=== PATIENT | male | born 1955 | race Caucasian/White ===

== ENCOUNTER → 2016-11-27 | Outpatient (CLI) | payer BC ==
[~2016-11-27] MED LIST: AMLO-114 PO; ASPEC325 PO; ATOR-24 PO; BUPR-83 PO; HYDR25TA5 PO; LABE1TAB28 PO; MAGNESIUM PO; METF-382 PO; MULT-506 PO; NVLNI SC; NVLRPUC SC; PRLSR20 PO
[2016-11-27 12:06] LABS: ALT/SGPT 36 U/L (12-78); AST/SGOT 18 U/L (15-37); BLOOD UREA NITROGEN 18 mg/dl (7-18); BUN/CREATININE RATIO 14.7 (10-20); CALCIUM 8.7 mg/dl (8.5-10.1); CARBON DIOXIDE 29 mmol/L (21-32); CHLORIDE 101 mmol/L (98-107); GLUCOSE 309 mg/dl (70-99); POTASSIUM 4.4 mmol/L (3.5-5.1); SODIUM 138 mmol/L (136-145)
[2016-11-27 12:07] LABS: ALB/GLOB RATIO 1.3 (0.9-2); CHOLESTEROL 125 mg/dl (0-200); TRIGLYCERIDES 85 mg/dl (0-150); VERY LOW DENSITY LIPOPROT CALC 17 mg/dl
[2016-11-27 12:16] LABS: ALKALINE PHOSPHATASE 73 U/L (45-117); BETA-HYDROXYBUTYRATE 1.45 mg/dL (0.2-2.81); CHOLESTEROL/HDL RATIO 2.6; HDL CHOLESTEROL 49 mg/dl; LDL CHOLESTEROL CALCULATED 59 mg/dl; THYROID STIMULATING HORMONE 0.359 uIu/ml (0.300-4.500)
[2016-11-27 12:35] LABS: RATIO 38.8 mcg/mg (0-30.0)
[2016-11-27 13:00] LABS: ESTIMATED AVERAGE GLUCOSE 309 mg/dl; HA1C FLAG Normal (Normal)
== END | disposition home or self-care (01) ==
LOC: C.LABBC 08:49
PROVIDERS: ATTEND Nurse Practitioner
DX: E11.9 Type 2 diabetes mellitus without complications (principal); E05.90 Thyrotoxicosis, unspecified without thyrotoxic crisis or storm

== ENCOUNTER → 2016-12-22 | Outpatient (CLI) | payer BC ==
--- NOTE | 2016-12-22 10:35 | DIAGNOSTIC IMAGING REPORT ---
THYROID ULTRASOUND CLINICAL HISTORY: Thyroid nodule. COMPARISON STUDY: Thyroid ultrasound August 07, 2009 and January 23, 2015. TECHNIQUE: Sonography of the thyroid gland was performed. FINDINGS: The right thyroid lobe measures 6 x 2.5 x 1.9 cm and the left measures 5.7 x 3.1 x 3.6 cm. Multiple similar-appearing thyroid nodules are again noted. The largest right lobe nodule is within the midpole, measuring 2.2 x 1.6 x 1.6 cm. This is similar to exam of January 23, 2015. The largest left lobe nodule is within the midpole, measuring 3.8 x 2.2 x 1.6 cm. This is similar to prior exam. A left isthmus nodule measuring 4.3 x 2.6 x 2.4 cm is also similar to prior exam when allowing for measurement variability. IMPRESSION: No significant change in multiple thyroid nodules since exam of January 23, 2015. Electronically signed by: Fran Matthews M.D. 12/22/2016 10:33 AM Dictated Date/Time: 12/22/2016 10:30 AM
== END | disposition home or self-care (01) ==
LOC: C.ULTR 10:02
PROVIDERS: ATTEND Internal Medicine
DX: E04.1 Nontoxic single thyroid nodule (principal)

== ENCOUNTER → 2017-01-31 | Outpatient (CLI) | payer BC ==
[2017-01-31 09:49] LABS: CALCIUM 9.2 mg/dl (8.5-10.1)
--- NOTE | 2017-02-07 10:15 | CODING QUERY MEDICAL NECESSITY ---
SUPPORTING DIAGNOSIS NEEDED A supporting diagnosis is required for the test/procedure performed on this patient in order for us to be reimbursed by the patient's insurance. Please provide a supporting diagnosis for the following test/procedure listed below next to the test name along with your signature. *If there is no additional diagnosis for this patient that would support the following test/procedure please document that below next to the test/procedure. Test(s)/Procedure(s) that require a supporting diagnosis: * VITAMIN D 25 HYDROXY DIAGNOSIS: * VIT B-12 LEVEL DIAGNOSIS: * DOS: 01/31/17 Provider Signature: Date: Thank you Anna Palacio Health Information Management Once completed, please kindly fax back to [phone] For questions please call [phone]
== END | disposition home or self-care (01) ==
LOC: C.LABBFT 07:37
PROVIDERS: ATTEND Internal Medicine Endocrinology, Diabetes & Metabolism
DX: E04.1 Nontoxic single thyroid nodule (principal); I10 Essential (primary) hypertension; Z83.41 Family history of multiple endocrine neoplasia [MEN] syndrome; R25.2 Cramp and spasm; M51.36 Other intervertebral disc degeneration, lumbar region; D64.9 Anemia, unspecified; E11.65 Type 2 diabetes mellitus with hyperglycemia

== ENCOUNTER → 2017-07-07 | Outpatient (CLI) | payer BC ==
[2017-07-07 12:57] LABS: ESTIMATED AVERAGE GLUCOSE 200 mg/dl; HA1C FLAG Normal (Normal)
== END | disposition home or self-care (01) ==
LOC: C.LABBFT 07:37
PROVIDERS: ATTEND Internal Medicine Endocrinology, Diabetes & Metabolism
DX: Z12.5 Encounter for screening for malignant neoplasm of prostate (principal); E11.65 Type 2 diabetes mellitus with hyperglycemia; E55.9 Vitamin D deficiency, unspecified

== ENCOUNTER → 2017-10-21 | Outpatient (CLI) | payer BC ==
--- NOTE | 2017-10-21 10:37 | DIAGNOSTIC IMAGING REPORT ---
LUMBAR SPINE WITHOUT CT DOSE: 825.46 mGy.cm HISTORY: Pain. LOWER BACK PAIN TECHNIQUE: Multiaxial CT images of the lumbar spine were performed and reformatted in the sagittal and coronal plane without the use of contrast. A dose lowering technique was utilized adhering to the principles of ALARA. COMPARISON: None. FINDINGS: Vertebral body stature is normal throughout. Grade 1 anterolisthesis L4 on L5 estimated no more than 4 mm of subluxation. Degenerative change posterior horns. No evidence for spondylolysis. Mild degenerative vertebral this changes throughout. Based on the unenhanced transaxial images the L1-L2 level is unremarkable. Mild broad-based disc bulge L2-L3. Mild multifactorial narrowing of the spinal canal at L3-L4. Moderate narrowing of the neuroforamina bilaterally at this level. Moderate to significant multifactorial narrowing of the spinal canal at L4-L5. Significant narrowing of the neuroforamina bilaterally. L5-S1 level is unremarkable. There are degenerative changes of the posterior elements throughout the entire lumbar region. IMPRESSION: 1. Considerable degenerative change of the posterior elements throughout the entire lumbar region. 2. Grade 1 anterolisthesis of L4 and L5 secondary to degenerative changes of posterior elements. 3. Moderate multifactorial narrowing of the spinal canal at L4-L5 with significant narrowing of the neuroforamina bilaterally. 4. Mild multifactorial narrowing of the spinal canal at L3-L4 5. Mild broad-based disc bulge L2-L3 The above report was generated using voice recognition software. It may contain grammatical, syntax or spelling errors. Electronically signed by: Davin Garcia M.D. 10/21/2017 10:36 AM Dictated Date/Time: 10/21/2017 10:31 AM
== END | disposition home or self-care (01) ==
LOC: C.CTS 09:57
PROVIDERS: ATTEND Orthopaedic Surgery Orthopaedic Surgery of the Spine
DX: M48.061 Spinal stenosis, lumbar region without neurogenic claudication (principal); M43.16 Spondylolisthesis, lumbar region; M51.36 Other intervertebral disc degeneration, lumbar region

== ENCOUNTER 2017-11-24 08:27 | Inpatient (IN) | payer BC ==
--- NOTE | 2017-11-04 10:50 | PAT Medication Instructions ---
Service Date Nov 04, 2017. Current Home Medication List Amlodipine (Norvasc), 10 MG PO QAM Aspirin (Aspirin), 325 MG PO QAM Atorvastatin (Lipitor), 40 MG PO QAM Bupropion (Wellbutrin Sr), 100 MG PO BID Hydrochlorothiazide (Hydrochlorothiazide), 1 TAB PO QAM Insulin Degludec (Tresiba Flextouch), 70 UNITS INJ QAM Irbesartan (Irbesartan), 1 TAB PO QAM Labetalol (Normodyne), 200 MG PO Q12H Metformin Ext Rel (Glucophage Ext Rel), 2 TAB PO BID Multivitamin (Multivitamin), 1 TAB PO QAM Naproxen (Naprosyn), 500 MG PO Q12H PRN for RN Omeprazole (Prilosec), 20 MG PO QAM [Magnesium], 250 MG PO QAM [Novolog], 1 DOSE INJ SLIDING SCALE [Potassium], 99 MG PO QAM Medication Instructions For Your Scheduled Surgery - Hold the following medications per surgeon's instructions: Naproxen (Naprosyn), 500 MG PO Q12H PRN Aspirin (Aspirin), 325 MG PO QAM - Hold the following medications 48 hours prior to surgery: Metformin Ext Rel (Glucophage Ext Rel), 2 TAB PO BID - Hold the following medications the morning of surgery: Multivitamin (Multivitamin), 1 TAB PO QAM [Magnesium], 250 MG PO QAM [Potassium], 99 MG PO QAM Hydrochlorothiazide (Hydrochlorothiazide), 1 TAB PO QAM Irbesartan (Irbesartan), 1 TAB PO QAM [Novolog], 1 DOSE INJ SLIDING SCALE - Take the following medications the morning of surgery with a sip of water OTHERWISE NOTHING TO EAT OR DRINK AFTER MIDNIGHT: Amlodipine (Norvasc), 10 MG PO QAM Atorvastatin (Lipitor), 40 MG PO QAM Labetalol (Normodyne), 200 MG PO Q12H Bupropion (Wellbutrin Sr), 100 MG PO BID Omeprazole (Prilosec), 20 MG PO QAM - For Insulin Dependent Diabetic patients: Test blood sugar A.M. of surgery. - If BLOOD SUGAR IS GREATER THAN 150, take HALF of your regular dose of: Insulin Degludec (Tresiba Flextouch) - If BLOOD SUGAR IS LESS THAN 150, do not take any: Insulin Degludec ( Tresiba Flextouch) - Take the following medications as scheduled the night before surgery: Labetalol (Normodyne), 200 MG PO Q12H Bupropion (Wellbutrin Sr), 100 MG PO BID [Novolog], 1 DOSE INJ SLIDING SCALE If you have any questions please call us at [phone] or [phone] or [phone]
[2017-11-04 11:29] LABS: BASO % 0.1 %; BASO ABS # 0.01 K/uL (0-0.2); EOS % 0.9 %; EOS ABS # 0.06 K/uL (0-0.5); HEMATOCRIT 41.4 % (42-52); HEMOGLOBIN 13.8 g/dL (14.0-18.0); IG# 0.01 K/uL (0.00-0.02); LYMPH % 22.3 %; LYMPH ABS # 1.49 K/uL (1.2-3.4); MEAN CELL VOLUME 89.8 fL (80-100); MEAN CORPUSCULAR HEMOGLOBIN 29.9 pg (25-34); MEAN CORPUSCULAR HGB CONC 33.3 g/dl (32-36); MEAN PLATELET VOLUME 11.3 fL (7.4-10.4); MONO % 7.2 %; MONO ABS # 0.48 K/uL (0.11-0.59); NEUT % 69.4 %; NEUT ABS # 4.63 K/uL (1.4-6.5); PLATELET COUNT 195 K/uL (130-400); RED CELL DISTRIBUTION WIDTH CV 12.9 % (11.5-14.5); RED CELL DISTRIBUTION WIDTH SD 41.7 fL (36.4-46.3); WHITE BLOOD COUNT 6.68 K/uL (4.8-10.8)
[2017-11-04 11:34] LABS: PTT PATIENT 24.3 SECONDS (21.0-31.0)
[2017-11-04 11:45] LABS: CALCIUM 9.4 mg/dl (8.5-10.1); CREATININE 1.22 mg/dl (0.60-1.40); POTASSIUM 4.7 mmol/L (3.5-5.1)
--- NOTE | 2017-11-04 11:50 | DIAGNOSTIC IMAGING REPORT ---
CHEST 2 VIEWS ROUTINE HISTORY: Preop. COMPARISON: None. FINDINGS: The lungs are clear. Cardiac silhouette is normal in size. No pleural effusions. No pneumothorax. IMPRESSION: No acute process. Electronically signed by: Kristofer Craft M.D. 11/04/2017 11:49 AM Dictated Date/Time: 11/04/2017 11:47 AM
--- NOTE | 2017-11-23 12:23 | HISTORY & PHYSICAL EXAMINATION ---
DATE OF ADMISSION: 11/24/2017 Laminectomy and fusion at L3-L4 and L4-L5 lumbar spine. CHIEF COMPLAINT: Back pain, lower extremity difficulty, nerve root pain, weakness and severe neurogenic claudication. HISTORY OF PRESENT ILLNESS: Avi is a pleasant young gentleman. He has been diagnosed with a fairly severe stenosis at L3-L4 and L4-L5. He is being set up for an elective surgery. He is moderately compromised. He has failed all sorts of conservative measures to try to help him with difficulty. We did not push him into a surgical intervention. PAST MEDICAL HISTORY: Positive hypertension, anxiety, diabetes on insulin, acid reflux. No kidney, liver or prostate issues. No carcinoma. No difficulty with anesthesia. No cardiac history. PAST SURGICAL HISTORY: Rotator cuff x2, wrist surgery, carpal tunnel, trigger finger release. ALLERGIES: MORPHINE AND LISINOPRIL. MEDICATIONS: Listed on this inquiry. I am not reproducing and re-dictating all the medications. SOCIAL HISTORY: Nonsmoker, non-ETOH user. REVIEW OF SYSTEMS: Denies any blurred vision, double vision, tinnitus or vertigo. No chest pain, palpitations, or short of breath. No nausea, vomiting, urgency, frequency, or dysuria. No loss of bowel or bladder function. His major complaint is his lower extremity difficulties and musculoskeletal back pain. PHYSICAL EXAMINATION: GENERAL: He is 5 feet 7 inches, 180 pounds in moderate distress at 62. VITAL SIGNS: Blood pressure 130/80, pulse of 80. HEENT: Essentially normal. HEART: Normal S1 and S2, no S3. LUNGS: Clear to auscultation. ABDOMEN: Soft and nontender. NEUROLOGIC: Essentially intact. 5/5 strength. Reflexes are diminished, knee jerk and Achilles. No hyperreflexia. No signs of upper motor neuron problems. He does have walking intolerance. IMAGING STUDIES: Images demonstrated stenosis and instability of the spine. PLAN: Includes laminectomy and fusion, L3-L4 and L4-L5, lumbar spine.
[~2017-11-24] VITALS: Ht 170.2 cm; Wt 87.3 kg
[~2017-11-24 08:27] MED LIST changes: -ASPEC325 PO; +ASPI325T45 PO; -BUPR-83 PO; +BUPR100T8 PO; +CEFAZOLIN 2000MG IV PUSH 10 ML IV SCH; +INSU1INJ33 INJ; +IRBE1TAB50 PO; +LACTATED RINGER'S 1000ML 1,000 ML IV SCH; +NAPR-1169 PO; +NOVOLOG INJ; +NSS 1000ML IV SCH; -NVLNI SC; -NVLRPUC SC; +POTASSIUM PO
[2017-11-24 09:00] VITALS: BP 184/93; PULSE 83; TEMP 36.7; O2SAT 98
[2017-11-24] MEDS ORDERED: GELATIN SPONGE SZ 100 ONE ×2 (10:29→11:46)
[2017-11-24] MEDS ORDERED: BACITRACIN 50000 UNIT VIAL ONE (10:29)
[2017-11-24] MEDS ORDERED: VANCOMYCIN HCL 1000MG/20ML VIAL ONE (10:29)
[2017-11-24] MEDS ORDERED: THROMBIN FOR SOLN 20000 UNIT KIT ONE (10:29)
--- NOTE | 2017-11-24 10:35 | History & Physical Bridge Note ---
H&P Re-Evaluation Bridge Note: I have examined the patient, reviewed the History & Physical and in the interval since the performance of the History & Physical I have noted the following changes of clinical significance: No changes noted
[2017-11-24] MEDS ORDERED: BUPIVACAINE/EPINEPHRINE 0.5% MPF 1:200,000 30 ML VIAL ONE (10:48)
[2017-11-24] MEDS ORDERED: ALBUMIN HUMAN 5% 12.5 GM/250 ML VIAL IV ONE (12:30)
--- NOTE | 2017-11-24 13:10 | DIAGNOSTIC IMAGING REPORT ---
LUMBAR SPINE, INTRAOPERATIVE FLUOROSCOPY HISTORY: L3 L5 laminectomy and fusion. FLUOROSCOPY TIME: 5.9 seconds. FINDINGS: Intraoperative fluoroscopy was provided for the lumbar spine. A single fluoroscopic spot image of the lumbar spine. There are pedicle screws at L4-5. IMPRESSION: Fluoroscopy provided for a L4-5 laminectomy and fusion. Electronically signed by: Kristofer Craft M.D. 11/24/2017 1:09 PM Dictated Date/Time: 11/24/2017 1:08 PM
[2017-11-24] MEDS ORDERED: LORAZEPAM 1 MG TAB PO PRN (13:30)
[2017-11-24] MEDS ORDERED: ONDANSETRON INJ 2 MG/ML 2 ML VIAL IV PRN ×2 (13:30→13:45)
[2017-11-24] MEDS ORDERED: ACETAMINOPHEN 325 MG TAB PO PRN (13:30)
[2017-11-24] MEDS ORDERED: LORAZEPAM INJ 1 MG in SYRINGE 0.5 ML IV PRN (13:30)
[2017-11-24] MEDS ORDERED: MAGNESIUM HYDROXIDE SUSP 30 ML UDC PO PRN (13:30)
[2017-11-24] MEDS ORDERED: METOCLOPRAMIDE HCL INJ 5 MG/ML 2 ML VIAL IV PRN (13:30)
[2017-11-24] MEDS ORDERED: PROMETHAZINE HCL INJ 12.5 MG in SODIUM CHLORIDE 0.9% 50ML 50 ML IV PRN ×2 (13:30→13:45)
--- NOTE | 2017-11-24 13:30 | [facility] Post Operative Brief Note ---
Immediate Operative Summary Operative Date Nov 24, 2017. Pre-Operative Diagnosis severe stenosis L3-5, spondy L4-5 Post-Operative Diagnosis SAME PREOP Procedure(s) Performed L3-5 LAMINECTOMY AND FUSION . IMPLANTS l4-[address] Morteza YI Land Law Examiner Surgeon(s) Bessie PINA PAC Estimated Blood Loss 650ml Findings as above Specimens NONE Complication(s) None Disposition Recovery Room / PACU
[2017-11-24] MEDS ORDERED: SODIUM CHLORIDE 0.9% 1000ML 1,000 ML IV SCH (13:32)
[2017-11-24] MEDS ORDERED: HYDROmorphone HCL 0.5MG/ML 50 ML CASSETTE ONE (13:39)
[2017-11-24] MEDS ORDERED: FLUMAZENIL 0.1 MG/1 ML 10 ML VIAL IV PRN (13:45)
[2017-11-24] MEDS ORDERED: NALOXONE HCL 0.4 MG/1 ML VIAL/CARP IV PRN ×2 (13:45)
[2017-11-24] MEDS ORDERED: ATROPINE SULFATE 0.1 MG/ML 5ML SYR IV PRN (13:45)
[2017-11-24] MEDS ORDERED: EpHEDrine SULFATE INJ 50 MG/ML AMP IV PRN (13:45)
[2017-11-24] MEDS ORDERED: HYDROmorphone INJ 1 MG/ML SYR IV PRN (13:45)
[2017-11-24] MEDS ORDERED: LABETALOL HCL IV 5 MG/ML 20ML IV PRN (13:45)
[2017-11-24] MEDS ORDERED: LABETALOL HCL IV 5 MG/ML 20ML IV ONE (13:54)
--- NOTE | 2017-11-24 14:01 | OPERATIVE REPORT ---
DATE OF OPERATION: 11/24/2017 PREOPERATIVE DIAGNOSES: Severe stenosis L3 to L5 lumbar spine, spondylolisthesis L4 on L5. POSTOPERATIVE DIAGNOSES: Same. PROCEDURES: Include: 1. Laminectomy, decompression, foraminotomy, partial facetectomy L3, L4, L5, 3 levels lumbar spine. 2. Pedicle screw instrumentation L4 to L5. 3. Posterior lateral fusion L3 to L4 to L5. COMPLICATIONS: Zero. BLOOD LOSS: 600-650. SURGEON: Dr. Odell Nunes. DEMONSTRATOR KNITTING: Willi Zarate PA-C. IMPLANTS USED: By the [employer], again no complications. DESCRIPTION OF PROCEDURE: The patient was taken to the operating room and general intubated anesthetic provided. The patient, placed prone, shaved, scrubbed, prepped and draped sterile. Antibiotic delivered and a Spence catheter administered. We made a skin incision from L3 to L5 dissecting the soft tissue in the same plane. A pretty rigorous dissection to get down to the spinal elements. Using multiple techniques including a bur, rongeurs, Kerrisons, we decompressed the neural elements providing a laminectomy at L3, L4, and L5, foraminotomies and partial facetectomies. The entire facet was sacrificed. I was pleased visually in probing each nerve root. I thought it was free of any gross obstruction. We then instrumented the spine. I was safe that I would get pedicle screws into L4-L5 with the spondylolisthesis and I was pleased with the x-ray images, again the implants were provided by the [employer]. We irrigated thoroughly. We then fused the spine, at least initiated diffusion at L3-L4-L5. We closed in layers over vancomycin powder with 1 Vicryl, 2-0 on the subcuticular layer, and 3-0 nylon on the skin. Sterile dressing applied. The patient returned to PACU stable. Sponge and needle count correct at the close. I attest to the content of the Intraoperative Record and any orders documented therein. Any exception s are noted below.
[2017-11-24] MEDS ORDERED: METOPROLOL TARTRATE 1 MG/ML VIAL IV STA (14:13)
[2017-11-24] MEDS ORDERED: METOPROLOL TARTRATE 1 MG/ML VIAL ONE (14:13)
[2017-11-24 14:15] LABS: HEMATOCRIT 32.9 % (42-52)
[2017-11-24] MEDS ORDERED: NovoLIN-R INSULIN PER UNIT CHARGE ONE ×2 (14:55→14:56)
[2017-11-24] MEDS ORDERED: NovoLIN-R INSULIN PER UNIT CHARGE IV STA (14:57)
[2017-11-24] MEDS: HYDROmorphone HCL 0.5MG/ML 50 ML CASSETTE IV PRN ×2 (15:52→23:15)
[2017-11-24 16:21] VITALS: BP 152/79; PULSE 107; PULSE 89; TEMP 36.7; O2SAT 96
--- NOTE | 2017-11-24 16:29 | Anesthesiology Progress Note ---
Anesthesia Post Op Note Date & Time Nov 24, 2017 at 16:28 Vital Signs Pain Intensity: 0 Vital Signs Past 12 Hours Date Time Temp Pulse Resp B/P (MAP) Pulse Ox O2 Delivery O2 Flow Rate FiO2 11/24/17 16:21 36.7 107 19 152/79 (103) 96 Nasal Cannula 2.0 11/24/17 15:37 102 14 18 15:37 102 14 99 18 15:36 157/76 18 15:32 93 10 18 15:32 93 10 99 18 15:31 155/74 18 15:27 91 11 99 18 15:27 92 11 18 15:26 156/74 18 15:22 91 11 18 15:22 90 11 99 18 15:21 155/73 18 15:18 88 11 18 15:18 88 11 99 18 15:16 150/66 18 15:13 90 5 18 15:13 89 5 99 18 15:11 159/70 18 15:08 91 7 18 15:08 90 7 99 18 15:07 86 8 18 15:07 85 8 99 18 15:06 166/71 18 15:02 91 11 99 18 15:02 91 11 18 15:01 160/73 18 14:57 91 7 18 14:57 91 7 100 18 14:56 164/79 18 14:52 87 9 18 14:52 87 9 99 18 14:51 160/75 18 14:47 87 3 18 14:47 87 3 100 18 14:45 158/84 11/24/18 14:42 88 9 98 11/24/18 14:42 88 9 18 14:41 159/73 18 14:37 87 10 18 14:37 87 10 98 1/18/18 14:36 162/73 /18/18 14:34 86 14 18/18 14:34 86 14 98 18/18 14:33 162/76 /18/18 14:31 179/80 18/18 14:29 90 13 99 /18/18 14:29 90 13 18/18 14:26 172/76 /18/18 14:25 36.4 82 16 172/76 (113) 99 Nasal Cannula 4 18/18 14:24 90 8 99 18/18 14:24 90 8 18/18 14:23 91 8 98 18/18 14:23 91 8 18/18 14:22 173/73 18/18 14:21 181/72 18/18 14:18 89 6 18/18 14:18 90 6 99 18/18 14:17 90 16 18/18 14:17 89 16 98 18/18 14:16 172/68 18/18 14:11 178/71 18/18 14:07 89 15 18/18 14:07 89 15 99 18/18 14:06 175/67 18/18 14:02 87 16 18/18 14:02 87 16 98 18/18 14:01 174/68 18/18 14:01 174/68 18/18 14:00 89 16 18/18 14:00 89 16 18/18 14:00 89 16 99 18/18 14:00 89 16 99 18/18 13:56 194/75 18/18 13:56 194/75 18/18 13:55 103 11 18/18 13:55 102 11 99 /18/18 13:55 103 11 18/18 13:55 102 11 99 18/18 13:50 108 17 99 /18/18 13:50 108 17 /18/18 13:50 108 17 /18/18 13:50 108 17 99 /18/18 13:49 186/79 /18/18 13:49 186/79 18/18 13:46 181/80 18/18 13:46 181/80 1/18/18 13:45 104 9 11/24/17 13:45 104 9 99 11/24/17 13:45 104 9 99 11/24/17 13:45 104 9 11/24/17 13:41 182/84 11/24/17 13:41 182/84 11/24/17 13:36 187/97 11/24/17 13:36 187/97 11/24/17 13:35 101 24 96 11/24/17 13:35 101 24 96 11/24/17 13:35 101 24 11/24/17 13:35 36.2 101 14 187/97 (152) 97 Oxymask 10 11/24/17 13:35 101 24 11/24/17 09:00 36.7 83 20 184/93 98 Room Air Notes Mental Status: alert / awake / arousable, participated in evaluation Pt Amnestic to Procedure: Yes Nausea / Vomiting: adequately controlled Pain: adequately controlled Airway Patency, RR, SpO2: stable & adequate BP & HR: stable & adequate Hydration State: stable & adequate Anesthetic Complications: no major complications apparent
[2017-11-24 16:50] VITALS: BP 146/75; PULSE 94; TEMP 36.6; O2SAT 98
[2017-11-24 17:50] VITALS: BP 150/72; PULSE 100; TEMP 36.7; O2SAT 97
[2017-11-24] MEDS ORDERED: DEXTROSE 50% 50 ML SYR IV PRN (18:30)
[2017-11-24] MEDS ORDERED: GLUCAGON FOR INJ 1 MG VIAL SQ PRN (18:30)
[2017-11-24] MEDS ORDERED: GLUCOSE 40% GEL 15 GM TUBE PO PRN (18:30)
[2017-11-24] MEDS ORDERED: GLUCOSE 10 TABS/TUBE PO PRN (18:30)
--- NOTE | 2017-11-24 18:37 | Medical Consult ---
Consultation Date of Consultation: Nov 24, 2017. Attending Physician: Odell Nunes DO History of Present Illness Mr. Jones is a 62 year old man here for s/p laminectomy. He is having some back pain but does not appear to be in distress. He did have a small emesis after surgery and continues to have some mild nausea. 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) Allergies Coded Allergies: Lisinopril (Verified Allergy, Unknown, COUGH, 11/04/17) Morphine (Verified Allergy, Unknown, SWELLING ARMS AND HANDS, 11/04/17) Home Medications Active Reported Naprosyn (Naproxen) 500 Mg Tab 500 Mg PO Q12H PRN [Potassium] 99 Mg PO QAM Wellbutrin Sr (Bupropion HCl) 100 Mg Ertab 100 Mg PO BID [Novolog] 1 Dose INJ SLIDING SCALE Tresiba Flextouch (Insulin Degludec) 100 Unit/Ml Inj 70 Units INJ QAM Irbesartan 300 Mg Tab 1 Tab PO QAM 90 Days Aspirin 325 Mg Tab 325 Mg PO QAM [Magnesium] 250 Mg PO QAM Prilosec (Omeprazole) 20 Mg Capcr 20 Mg PO QAM Multivitamin (Multivitamins) Tab 1 Tab PO QAM Glucophage Ext Rel (Metformin HCl) 500 Mg Tab 2 Tab PO BID Normodyne (Labetalol HCl) 200 Mg Tab 200 Mg PO Q12H Hydrochlorothiazide 25 Mg Tab 1 Tab PO QAM Lipitor (Atorvastatin Calcium) 40 Mg Tab 40 Mg PO QAM Norvasc (Amlodipine Besylate) 10 Mg Tab 10 Mg PO QAM Current Inpatient Medications Current Inpatient Medications Medications (Trade) Dose Ordered Sig/Lonny Route Start Time Stop Time Status Last Admin Dose Admin Sodium Chloride 1,000 ml @ 15 mls/hr Q24H IV 11/24/17 06:00 11/25/17 05:59 Lactated Ringer's 1,000 ml @ 15 mls/hr Q24H IV 11/24/17 06:00 11/25/17 05:59 11/24/17 09:54 15 MLS/HR Diphenhydramine HCl (Benadryl Cap) 25 mg Q6H PRN PO 11/24/17 13:30 12/24/17 13:29 Magnesium Hydroxide (Milk Of Magnesia Susp) 30 ml DAILY PRN PO 11/24/17 13:30 12/24/17 13:29 Bisacodyl (Dulcolax Supp) 10 mg DAILY PRN WI 11/25/17 06:00 12/25/17 05:59 Bisacodyl (Dulcolax Tab) 5 mg DAILY PRN PO 11/25/17 06:00 12/25/17 05:59 Polyethylene (Miralax Powder Packet) 17 gm DAILY PO 11/25/17 09:00 12/25/17 08:59 Lorazepam 1 mg/ Syringe 1 ml @ 1 mls/min Q6H PRN IV 11/24/17 13:30 12/24/17 13:29 Lorazepam (Ativan Tab) 1 mg Q6H PRN PO 11/24/17 13:30 12/24/17 13:29 Metoclopramide HCl (Reglan Inj) 10 mg Q6H PRN IV 11/24/17 13:30 12/24/17 13:29 Ondansetron HCl (Zofran Inj) 4 mg Q6H PRN IV 11/24/17 13:30 12/24/17 13:29 11/24/17 16:15 4 MG Promethazine HCl 12.5 mg/Sodium Chloride 50.5 ml @ 202 mls/hr Q6H PRN IV 11/24/17 13:30 12/24/17 13:29 Ketorolac Tromethamine (Toradol Inj) 30 mg Q6H IV 11/24/17 16:00 11/29/17 15:59 Hydromorphone HCl (Dilaudid Inj) 1.5 mg Q3H PRN IV 11/25/17 08:00 12/09/17 07:59 Oxycodone/ Acetaminophen (Percocet 5-325mg Tab) 2 tab Q4H PRN PO 11/25/17 08:00 12/09/17 07:59 Hydromorphone HCl (Dilaudid Inj) 1 mg Q3H PRN IV 11/25/17 08:00 12/09/17 07:59 Oxycodone/ Acetaminophen (Percocet 5-325mg Tab) 1 tab Q4H PRN PO 11/25/17 08:00 12/09/17 07:59 Miscellaneous Information (Discontinue MILLER HEAD WET PROCESS) 1 ea 0600 N/A 11/25/17 06:00 11/25/17 06:01 Acetaminophen (Tylenol Tab) 650 mg Q6H PRN PO 11/24/17 13:30 12/24/17 13:29 Cefazolin Sodium 2000 mg/Syringe 10 ml @ 2.5 mls/min Q8H IV 11/24/17 19:00 11/25/17 11:03 Dexamethasone Sodium Phosphate 10 mg/Syringe 2.5 ml @ 1 mls/min Q8H IV 11/24/17 17:00 11/26/17 01:03 Naloxone HCl (Narcan Inj) 0.1 mg Q5M PRN IV 11/24/17 13:45 11/25/17 06:00 Hydromorphone HCl (Dilaudid Final Expense Agent) 0.25 mg PRN PRN IV 11/24/17 13:45 11/25/17 06:00 11/24/17 15:52 0.25 MG Sodium Chloride 1,000 ml @ 15 mls/hr Q24H IV 11/24/17 13:32 11/25/17 06:00 Hydromorphone HCl (Dilaudid Inj) 0.25 mg Q5M PRN IV 11/24/17 13:45 11/24/17 18:45 Naloxone HCl (Narcan Inj) 0.2 mg Q2M PRN IV 11/24/17 13:45 11/24/17 18:45 Flumazenil (Romazicon Inj) 0.2 mg Q2M PRN IV 11/24/17 13:45 11/24/17 18:45 Ondansetron HCl (Zofran Inj) 4 mg ONE PRN IV 11/24/17 13:45 11/24/17 18:45 Promethazine HCl 12.5 mg/Sodium Chloride 50.5 ml @ 202 mls/hr ONE PRN IV 11/24/17 13:45 11/24/17 18:45 Labetalol HCl (Normodyne IV) 5 mg Q5M PRN IV 11/24/17 13:45 11/24/17 18:45 Ephedrine Sulfate (EpHEDrine SULFATE INJ) 5 mg Q5M PRN IV 11/24/17 13:45 11/24/17 18:45 Atropine Sulfate (Atropine Sulfate 0.1mg/ml Inj) 0.5 mg Q1M PRN IV 11/24/17 13:45 11/24/17 18:45 Physical Exam Date Time Temp Pulse Resp B/P (MAP) Pulse Ox O2 Delivery O2 Flow Rate FiO2 11/24/17 17:50 36.7 100 19 150/72 (98) 97 Nasal Cannula 2.0 11/24/17 16:50 36.6 94 17 146/75 (98) 98 Nasal Cannula 2.0 11/24/17 16:21 36.7 107 19 152/79 (103) 96 Nasal Cannula 2.0 11/24/17 15:37 102 14 11/24/17 15:37 102 14 99 11/24/17 15:36 157/76 11/24/17 15:32 93 10 11/24/17 15:32 93 10 99 11/24/17 15:31 155/74 11/24/17 15:27 91 11 99 18 15:27 92 11 11/24/17 15:26 156/74 18 15:22 91 11 11/24/17 15:22 90 11 99 18 15:21 155/73 11/24/17 15:18 88 11 18 15:18 88 11 99 11/24/17 15:16 150/66 11/24/17 15:13 90 5 11/24/17 15:13 89 5 99 11/24/17 15:11 159/70 11/24/17 15:08 91 7 11/24/17 15:08 90 7 99 11/24/17 15:07 86 8 11/24/17 15:07 85 8 99 11/24/17 15:06 166/71 11/24/17 15:02 91 11 99 11/24/17 15:02 91 11 1/18/18 15:01 160/73 /18/18 14:57 91 7 /18/18 14:57 91 7 100 18/18 14:56 164/79 18/18 14:52 87 9 18/18 14:52 87 9 99 18/18 14:51 160/75 18/18 14:47 87 3 18/18 14:47 87 3 100 18/18 14:45 158/84 18/18 14:42 88 9 98 18/18 14:42 88 9 18/18 14:41 159/73 18/18 14:37 87 10 18/18 14:37 87 10 98 11/24/18 14:36 162/73 18/18 14:34 86 14 11/24/18 14:34 86 14 98 11/24/18 14:33 162/76 18/18 14:31 179/80 11/24/18 14:29 90 13 99 11/24/18 14:29 90 13 11/24/18 14:26 172/76 18/18 14:25 36.4 82 16 172/76 (113) 99 Nasal Cannula 4 18 14:24 90 8 99 18/18 14:24 90 8 11/24/18 14:23 91 8 98 11/24/18 14:23 91 8 11/24/18 14:22 173/73 18/18 14:21 181/72 18/18 14:18 89 6 18/18 14:18 90 6 99 11/24/18 14:17 90 16 18/18 14:17 89 16 98 18/18 14:16 172/68 18/18 14:11 178/71 18/18 14:07 89 15 18/18 14:07 89 15 99 18/18 14:06 175/67 18/18 14:02 87 16 18/18 14:02 87 16 98 18/18 14:01 174/68 /18/18 14:01 174/68 18/18 14:00 89 16 18/18 14:00 89 16 18/18 14:00 89 16 99 11/24/17 14:00 89 16 99 11/24/17 13:56 194/75 11/24/17 13:56 194/75 11/24/17 13:55 103 11 11/24/17 13:55 102 11 99 11/24/17 13:55 103 11 11/24/17 13:55 102 11 99 11/24/17 13:50 108 17 99 11/24/17 13:50 108 17 11/24/17 13:50 108 17 11/24/17 13:50 108 17 99 11/24/17 13:49 186/79 11/24/17 13:49 186/79 11/24/17 13:46 181/80 11/24/17 13:46 181/80 11/24/17 13:45 104 9 11/24/17 13:45 104 9 99 11/24/17 13:45 104 9 99 11/24/17 13:45 104 9 11/24/17 13:41 182/84 11/24/17 13:41 182/84 11/24/17 13:36 187/97 11/24/17 13:36 187/97 11/24/17 13:35 101 24 96 11/24/17 13:35 101 24 96 11/24/17 13:35 101 24 11/24/17 13:35 36.2 101 14 187/97 (152) 97 Oxymask 10 11/24/17 13:35 101 24 11/24/17 09:00 36.7 83 20 184/93 98 Room Air Laboratory Results Last 24 Hours Test 11/24/17 09:13 11/24/17 13:51 11/24/17 14:45 11/24/17 15:26 Bedside Glucose 162 mg/dl 257 mg/dl 226 mg/dl Hemoglobin 11.0 g/dL Hematocrit 32.9 % Test 11/24/17 17:22 Bedside Glucose 230 mg/dl Assessment & Plan Mr. Jones is a 62 year old man s/p laminectomy 11/24/17 S/p laminectomy - monitor for acute blood loss - cbc am - bowel regimen, pain control, dvt prophylaxis per primary - will defer to primary on when to restart ASA DMII - home dose novolog and Tresiba - will add ss to patient's home carb coverage if sugars are elevated - hold metformin for now - bsg ac & hs HTN - continue ARB, labetalol
[2017-11-24] MEDS: DEXAMETHASONE INJ 10 MG in SYRINGE 0 ML IV SCH (19:46)
[2017-11-24] MEDS: CEFAZOLIN IV 2,000 MG in SYRINGE 0 ML IV SCH (19:46)
[2017-11-24] MEDS: LABETALOL HCL 200 MG TAB PO SCH (19:53)
[2017-11-24] MEDS: INSULIN ASPART 100 UNITS/ML 3 ML PEN SC SCH ×2 (20:01→22:38)
[2017-11-24] MEDS: KETOROLAC TROMETHAMINE 30 MG/ML VIAL IV SCH (20:02)
[2017-11-24] MEDS: BuPROPion SR 100 MG TABCR PO SCH (20:27)
[2017-11-24] MEDS ORDERED: NURSING VERBAL MED ORDER ONE (20:30)
[2017-11-24] MEDS ORDERED: INSULIN ASPART 100 UNITS/ML 3 ML PEN SC SCH (21:00)
[2017-11-24 23:06] VITALS: BP 150/80; PULSE 96; TEMP 36.7; O2SAT 91
[2017-11-25] MEDS: DEXAMETHASONE INJ 10 MG in SYRINGE 0 ML IV SCH ×3 (01:34→17:54)
[2017-11-25] MEDS: CEFAZOLIN IV 2,000 MG in SYRINGE 0 ML IV SCH ×2 (02:29→12:12)
[2017-11-25] MEDS: KETOROLAC TROMETHAMINE 30 MG/ML VIAL IV SCH (02:29)
[2017-11-25 03:18] VITALS: BP 150/81; PULSE 98; TEMP 36.6; O2SAT 93
[2017-11-25 05:18] LABS: HEMATOCRIT 30.1 % (42-52); HEMOGLOBIN 10.2 g/dL (14.0-18.0); MEAN CELL VOLUME 90.4 fL (80-100); MEAN CORPUSCULAR HEMOGLOBIN 30.6 pg (25-34); MEAN CORPUSCULAR HGB CONC 33.9 g/dl (32-36); MEAN PLATELET VOLUME 10.5 fL (7.4-10.4); PLATELET COUNT 147 K/uL (130-400); RED CELL DISTRIBUTION WIDTH SD 42.7 fL (36.4-46.3); WHITE BLOOD COUNT 10.04 K/uL (4.8-10.8)
[2017-11-25 05:54] LABS: CREATININE 1.2 mg/dl (0.60-1.40); POTASSIUM 4.3 mmol/L (3.5-5.1)
[2017-11-25] MEDS ORDERED: NURSING DECISION MEDICATION ORDER SCH (06:00)
[2017-11-25] MEDS ORDERED: BISACODYL 5 MG TABEC PO PRN (06:00)
[2017-11-25] MEDS ORDERED: DC PCA SCH (06:00)
[2017-11-25] MEDS ORDERED: BISACODYL 10 MG SUPP PR PRN (06:00)
[2017-11-25] MEDS ORDERED: INSULIN ASPART 100 UNITS/ML 3 ML PEN SC SCH (07:00)
--- NOTE | 2017-11-25 07:05 | Clinical Documentation Query ---
CLINICAL DOCUMENTATION QUERY A 62 yo male s/p laminectomy and fusion, L3-L4 and L4-L5, lumbar spine. In your clinical opinion is this patient being managed for: ( ) Acute blood-loss anemia ( ) Not Agree ( ) Other explanation of clinical findings (Please Explain) ( ) Unable to determine (Please Define) ( ) Need to Discuss The medical record reflects the following clinical findings, treatment, and risk factors. Clinical Indicators: Hgb 13.8 trending down to 10.2 Treatment: Type and screen, serial CBCs, IV hydration Risk Factors: S/P surgical intervention Please clarify and document your clinical opinion in the progress notes and discharge summary. Terms such as "probable", "suspected", "likely", "questionable", "possible", or "still to be ruled out" are acceptable. IF IN AGREEMENT, YOU MUST DOCUMENT ABOVE DIAGNOSTIC STATEMENT IN DAILY PROGRESS NOTES AND DISCHARGE SUMMARY. This document is not part of the patient's record. Thank You, Precious Tavares RN [phone]
[2017-11-25 07:10] VITALS: BP 139/69; PULSE 92; TEMP 36.6; O2SAT 98
[2017-11-25] MEDS: LABETALOL HCL 200 MG TAB PO SCH ×2 (07:31→20:29)
[2017-11-25] MEDS: PANTOprazole SOD 40 MG TAB PO SCH (07:31)
--- NOTE | 2017-11-25 07:54 | Discharge Instructions ---
Discharge Instructions Date of Service Nov 25, 2017. Admission Reason for Admission: Lumbar Spinal Stenosis Discharge Discharge Diagnosis / Problem: same Discharge Goals Goal(s): Improve function Activity Recommendations Activity Limitations: as noted below Lifting Limitations: gradually increase as tolerated Exercise/Sports Limitations: until after follow-up appointment May Resume Sexual Activity: after follow-up appointment Shower/Bathe: keep incision dry . Instructions / Follow-Up Instructions / Follow-Up MEDICATIONS: Please take your prescriptions as instructed at your pre-op appointment. SPECIAL CARE: The following information is intended to answer some of the common questions and concerns regarding your surgery. Each patient is an individual and receives individual counselling throughout the course of treatment, from diagnosis to surgery all the way through recovery. What follows is not an exhaustive list, but should be a useful guide to some of the common questions and concerns patients have regarding their surgeries. These are not provided to keep you from calling us; rather, they give you something accurate and concrete to reference as you recover from your procedure. If you need us, we are available to you. As always, if you are not sure about something, call us at [phone]. MEDICAL EMERGENCIES: For these conditions, call 911 or go to your local hospital-based Emergency Department - not [facility] or equivalent. * Paralysis * Severe chest pain or difficulty breathing * Swelling or redness of either leg Spine procedures can be rather complex and though complications are rare, they do occur. In such cases, effective advice regarding emergency situations cannot always be addressed over the telephone. You may be referred to the emergency department for more effective management of your problem. Activity Limitations: It is important to give your body time to heal, so please limit your activities : * In general, don't do anything that moves your spine too much. You should avoid contact sports, twisting or heavy lifting while you recover. * 5-10 pounds is all you should attempt to lift. * You should not plan on driving for approximately 3 weeks and you should avoid traveling more than 30-45 minutes at a time. Longer trips should be broken down with walking breaks spaced appropriately. * Physical therapy is not usually required. * Walking and good posture practices will help you recover and regain your function. * Avoid straining or sudden changes in position. * In general, the goal is to take it easy and recover. Don't cause any new problems. Just relax. Showers: * Do not take a bath, use a Jacuzzi or hot tub or otherwise submerge your incision. * It is usually safe to take a shower 4-5 days after your surgery. * Your incision does not require any special creams or ointments. * Simply clean it with soap and water, dry and re-dress with a clean bandage afterwards. Incision: * Keep incision clean, dry and protected until your first follow-up appointment. * Some amount of drainage and redness is normal. Any drainage should be fairly clear and not have a foul odor. * If you feel anything is wrong or you have excessive drainage, please call us. * Your stitches and rebel will be removed 10-14 days after your surgery. At the time of your first post-op visit. * Neck surgeries are typically closed with a suture underneath the skin. The steri-strips over the incision should be maintained until we see you in the office. Bracing: * You may be provided with a back or neck brace to encourage good posture and prevent injury. It will remind you not to do too much as you heal and will alert others to the fact that you have had a surgery. * Back braces may be removed for showers and when you are resting at home. They must be worn when you are walking around for any period of time or for travel. * For neck surgery, you will likely be provided with two cervical collars. The soft collar ([place] or foam rubber) is worn most commonly throughout the day and while sleeping. The plastic collar (provided at the hospital) is for showering/bathing. * Except while eating, collars should remain in place. More specifically, bracing is provided for a purpose and should be worn. * Please obtain your brace or collars prior to your operation and bring them to the hospital with you on the day of surgery. * You should also bring your collars to your post-op appointment with Dr. Nunes. You should always take good care of your body and practice healthy habits, especially following surgery. You should: * Follow your doctor's treatment plan * Sit and stand properly with good posture (ears over shoulders, shoulders over hips) Don't slouch * Learn to lift correctly * Exercise regularly (low-impact aerobic exercise is especially good, but check with your doctor first) * Generally, be up and walking for 5-10 minutes at a time at least 3-4 times per day from the day you get home * Increasing walking to tolerance until you can walk for 20-30 minutes at a time * Attain and maintain a healthy body weight * Eat healthy foods ( a well-balanced, low-fat diet rich in fruits and vegetables) and get enough calcium * Avoid excessive use of alcohol When to call our office - If you notice any of the following: * Increased pain not relieve by pain medicine * Fevers greater then 100 degrees F, chills or flu symptoms * Increased redness around incision * Drainage from the incision that is not clear * Any foul smelling drainage * Swelling or fluid collection beneath the skin Miscellaneous: * In the hospital, you may be given a walker or cane for support while walking. These are temporary needs and are intended to prevent injuries due to falls. You may discontinue them when you feel strong and steady enough on your feet. * Sleep in a comfortable position. We find that many patients find a lounge chair or recliner with several pillows to be beneficial in the early post-operative period. * The support stockings should be used for 7-10 days and may be discontinued when you are back to walking more and conducting usual household activities. No problem is insignificant. We are here to help you and get you well. Contact us at [phone]. Definitions: Foraminotomy: If part of the disc or a bone spur (osteophyte) is pressing on a nerve as it leaves the vertebra (through an exit called the foramen), a foraminotomy may be done. Otomy means "to make an opening." A foraminotomy is making the opening of the foramen larger, so the nerve can exit without being compressed. Laminotomy: Similar to the foraminotomy, a laminotomy makes a larger opening, this time in your bony plate protecting your spinal canal and spinal cord (the lamina). The lamina may be pressing on your nerve, so the surgeon may make more room for the nerves using a laminotomy. Laminectomy: Sometimes, a laminotomy is not sufficient. The surgeon may need to remove all or part of the lamina. This procedure is called a laminectomy. This can often be done at many levels without any harmful effects. Current Hospital Diet Patient's current hospital diet: Diabetes Type 2 Diet Discharge Diet Recommended Diet: Regular Diet Procedures Procedures Performed: L3-5 LAMINECTOMY AND FUSION . IMPLANTS l4-5 Pending Studies Studies pending at discharge: no Medical Emergencies . Who to Call and When: Medical Emergencies: If at any time you feel your situation is an emergency, please call 911 immediately. . Non-Emergent Contact Non-Emergency issues call your: Primary Care Provider . "Provider Documentation" section prepared by Odell Nunes. . VTE Core Measure Inpt VTE Proph given/why not?: Treatment not indicated
[2017-11-25] MEDS ORDERED: HYDROmorphone INJ 1 MG/ML SYR IV PRN ×2 (08:00)
[2017-11-25] MEDS ORDERED: OXYCODONE/ACETAMINOPHEN 5-325 TAB PO PRN ×2 (08:00)
--- NOTE | 2017-11-25 08:01 | ORTHOPEDICS PROGRESS NOTE ---
DATE: 11/25/2017 SUBJECTIVE: She is alert, oriented. No chest pain, shortness of breath or confusion. OBJECTIVE: Vital signs stable. Moves all extremities. ASSESSMENT: Reconstructive spine surgery. He is now approximately 20 years postoperative. We will get him walking slowly today. He has a back brace. Instructions, precautions and will discharge him home tomorrow, Tuesday.
--- NOTE | 2017-11-25 08:03 | Anesthesiology Progress Note ---
Anesthesia Post Op Note Date & Time Nov 25, 2017 at 08:03 Vital Signs Vital Signs Past 12 Hours Date Time Temp Pulse Resp B/P (MAP) Pulse Ox O2 Delivery O2 Flow Rate FiO2 11/25/17 07:10 36.6 92 16 139/69 (92) 98 Room Air 11/25/17 03:18 36.6 98 15 150/81 (104) 93 Room Air 11/24/17 23:55 Room Air 11/24/17 23:06 36.7 96 16 150/80 (103) 91 Room Air Notes Mental Status: alert / awake / arousable, participated in evaluation Pt Amnestic to Procedure: Yes Nausea / Vomiting: adequately controlled Pain: adequately controlled Airway Patency, RR, SpO2: stable & adequate BP & HR: stable & adequate Hydration State: stable & adequate Anesthetic Complications: no major complications apparent
[2017-11-25] MEDS ORDERED: NURSING VERBAL MED ORDER ONE (08:15)
[2017-11-25] MEDS ORDERED: PHARMACY GLYCEMIC MGMT CONSULT PRN (08:52)
[2017-11-25] MEDS ORDERED: PANTOprazole SOD 40 MG TAB PO SCH (09:00)
[2017-11-25 09:12] VITALS: BP 158/77; PULSE 92
[2017-11-25] MEDS: HYDROCHLOROTHIAZIDE 25 MG TAB PO SCH (09:14)
[2017-11-25] MEDS: IRBESARTAN 150 MG TAB PO SCH (09:14)
[2017-11-25] MEDS: ATORVASTATIN 20 MG TAB PO SCH (09:15)
[2017-11-25] MEDS: AMLODIPINE BESYLATE 5 MG TAB PO SCH (09:15)
[2017-11-25] MEDS: MULTIVITAMIN TAB PO SCH (09:15)
[2017-11-25] MEDS: BuPROPion SR 100 MG TABCR PO SCH ×2 (09:16→21:48)
[2017-11-25] MEDS: HYDROCODONE/ACETAMI 10/325 TAB PO PRN ×3 (09:18→23:49)
[2017-11-25] MEDS: INSULIN GLARGINE SOLOSTAR 100 UNITS/ML 3 ML PEN SC SCH (09:20)
[2017-11-25] MEDS ORDERED: NovoLIN-N (NPH) PER UNIT CHARGE SQ ONE (09:30)
[2017-11-25] MEDS: INSULIN ASPART 100 UNITS/ML 3 ML PEN SC SCH ×4 (09:53→21:00)
[2017-11-25] MEDS: POLYETHYLENE (MIRALAX) 17 GM PACK PO SCH (09:56)
--- NOTE | 2017-11-25 11:11 | Pharmacy Progress Note ---
Glycemic Control Intl Consult Date of Service Nov 25, 2017. Scope Glycemic Pharmacist consulted by Dr Figueroa on 11/25/17 for glycemic control and to write orders per [facility] inpatient glycemic control protocol Objective Weight (Kilograms): 87.300 Accuchecks BSG (last 24hrs): Test 11/24/17 14:45 11/24/17 15:26 11/24/17 17:22 11/24/17 22:29 Bedside Glucose 257 mg/dl (70-99) 226 mg/dl (70-99) 230 mg/dl (70-99) 258 mg/dl (70-99) Test 11/25/17 05:10 11/25/17 08:03 Random Glucose 252 mg/dl (70-99) Bedside Glucose 349 mg/dl (70-99) Laboratory Data (last 24hrs) Test 11/25/17 05:10 Anion Gap 7.0 mmol/L BUN/Creatinine Ratio 20.8 Blood Urea Nitrogen 25 mg/dl Creatinine 1.20 mg/dl Potassium Level 4.3 mmol/L Sodium Level 137 mmol/L White Blood Count 10.04 K/uL Recent Pertinent Medications Outpatient Anti-diabetic Regimen: * Tresiba 70 units SQ Q AM * Novolog per sliding scale * Metformin ER 1gm PO BID * A1c = 8.6 % 07/07/17 The patient is currently receiving: * Basal insulin: Lantus 70 units every 24 hours - dosed in the AM * Correctional Insulin: Novolog Correction per scale ACHS Goal Range: Low 100 mg/dL - High 140 mg/dL Correction Factor: 30 mg/dL/unit * Prandial insulin: Per carb ratio of 1 unit per 5 grams CHO consumed * Oral Agents: None currently Risk Factors for Insulin Resistance: * Steroids: Dexamethasone 10mg IV Q 8 hours * Recent Surgery: POD # 1 s/p lumbar spinal fusion * Diet: T2DM ordered, consumed 45gm CHO w/ breakfast Assessment & Plan ASSESSMENT: 11/25/17 * Type 2 diabetic admitted for lumbar spinal fusion * Patient's glycemic control deteriorated quickly following surgery yesterday, BSG currently 349 this AM * Hyperglycemia is secondary to surgical stressors, high dose IV steroids and missing his basal insulin dose yesterday (last dose of Tresiba 11/23/17 AM) * Ideally an insulin infusion would be best suited to quickly gain control of hyperglycemia, and we will likely transition to this therapy if BSGs not improving with next Accuchek pre-lunch. No acidosis noted on this AM's labs. * Will proceed with restarting basal insulin in home dose plus adding NPH this AM with a more aggressive CF * If pre-lunch BSG not less than 250 will initiate IV insulin infusion to lessen risks of post-op infection and delayed wound healing PLAN FOR INPATIENT GLYCEMIC CONTROL: * Lantus 70 units SQ Q AM * NPH 20 units SQ BID with breakfast and dinner * Novolog ACHS and at 0000 + 0400 * Change correction factor to 18 mg/dl/unit * Continuing carb ratio of 1 unit per 5 grams CHO consumed * Continuing goal range of Low 110 mg/dL - High 140 mg/dL * Reevaluate insulin doses when steroid d/c'd * Please note that the plan above was derived based on current level of insulin resistance and hospital stress. These recommendations are appropriate for inpatient admission only. Plan of care upon discharge will need to be reassessed to avoid potential outpatient hypo/hyperglycemia. Thank you.
[2017-11-25] MEDS ORDERED: INSULIN HUMAN REGULAR IV BOLUS 3.5 UNIT in SYRINGE 0 ML IV SCH (13:00)
[2017-11-25] MEDS: INSULIN REGULAR 250 UNITS in SODIUM CHLORIDE 0.9% 250ML 250 ML IV SCH ×11 (13:11→23:43)
[2017-11-25 13:40] VITALS: Ht 170.2 cm; Wt 87.3 kg
--- NOTE | 2017-11-25 14:17 | Hospitalist Progress Note ---
Hospitalist Progress Note Date of Service Nov 25, 2017. (Marcela Monzon ., MARSHALLC) Subjective Pt evaluation today including: conversation w/ patient, physical exam, lab review, review of inpatient medication list Voiding: yoo catheter in place Patient sitting in bedside chair. Eating and drinking OK. Pain is well controlled. +flatus postop, no BM. Patient denies any fever, chills, sweats, lightheadedness, dizziness, vision changes, CP, palpitations, edema, SOB, wheezing, cough, abdominal pain, nausea, vomiting, diarrhea, urinary symptoms, melena, numbness/tingling, weakness, anxiety/depression, active bleeding, or new skin discoloration/changes. (Marcela Monzon ., MARSHALLC) Medications Current Inpatient Medications Medications (Trade) Dose Ordered Sig/Lonny Route Start Time Stop Time Status Last Admin Dose Admin Diphenhydramine HCl (Benadryl Cap) 25 mg Q6H PRN PO 11/24/17 13:30 12/24/17 13:29 Magnesium Hydroxide (Milk Of Magnesia Susp) 30 ml DAILY PRN PO 11/24/17 13:30 12/24/17 13:29 Bisacodyl (Dulcolax Supp) 10 mg DAILY PRN SD 11/25/17 06:00 12/25/17 05:59 Bisacodyl (Dulcolax Tab) 5 mg DAILY PRN PO 11/25/17 06:00 12/25/17 05:59 Polyethylene (Miralax Powder Packet) 17 gm DAILY PO 11/25/17 09:00 12/25/17 08:59 11/25/17 09:56 17 GM Lorazepam 1 mg/ Syringe 1 ml @ 1 mls/min Q6H PRN IV 11/24/17 13:30 12/24/17 13:29 Lorazepam (Ativan Tab) 1 mg Q6H PRN PO 11/24/17 13:30 12/24/17 13:29 Metoclopramide HCl (Reglan Inj) 10 mg Q6H PRN IV 11/24/17 13:30 12/24/17 13:29 Ondansetron HCl (Zofran Inj) 4 mg Q6H PRN IV 11/24/17 13:30 12/24/17 13:29 11/24/17 16:15 4 MG Promethazine HCl 12.5 mg/Sodium Chloride 50.5 ml @ 202 mls/hr Q6H PRN IV 11/24/17 13:30 12/24/17 13:29 11/24/17 21:06 202 MLS/HR Hydromorphone HCl (Dilaudid Inj) 1.5 mg Q3H PRN IV 11/25/17 08:00 12/09/17 07:59 Hydromorphone HCl (Dilaudid Inj) 1 mg Q3H PRN IV 11/25/17 08:00 12/09/17 07:59 Acetaminophen (Tylenol Tab) 650 mg Q6H PRN PO 11/24/17 13:30 12/24/17 13:29 Dexamethasone Sodium Phosphate 10 mg/Syringe 2.5 ml @ 1 mls/min Q8H IV 11/24/17 17:00 11/26/17 01:03 11/25/17 09:21 1 MLS/MIN Glucose (Glucose 40% Gel) 15-30 GRAMS 15 GRAMS... UD PRN PO 11/24/17 18:30 12/24/17 18:29 Glucose (Glucose Chew Tab) 4-8 Tablets 4 Tabl... UD PRN PO 11/24/17 18:30 12/24/17 18:29 Dextrose (Dextrose 50% 50ML Syringe) 25-50ML OF 50% DW IV FOR... UD PRN IV 11/24/17 18:30 12/24/17 18:29 Glucagon (Glucagon Inj) 1 mg UD PRN SQ 11/24/17 18:30 12/24/17 18:29 Amlodipine Besylate (Norvasc Tab) 10 mg QAM PO 11/25/17 09:00 12/25/17 08:59 11/25/17 09:15 10 MG Atorvastatin Calcium (Lipitor Tab) 40 mg QAM PO 11/25/17 09:00 12/25/17 08:59 11/25/17 09:15 40 MG Bupropion HCl (Wellbutrin-Sr Tab) 100 mg BID PO 11/24/17 21:00 12/24/17 20:59 11/25/17 09:16 100 MG Hydrochlorothiazide (Hydrochlorothiazide Tab) 25 mg QAM PO 11/25/17 09:00 12/25/17 08:59 11/25/17 09:14 25 MG Labetalol HCl (Normodyne Tab) 200 mg Q12H PO 11/24/17 20:00 12/24/17 19:59 11/25/17 07:31 200 MG Multivitamins (Multivitamin Tab) 1 tab QAM PO 11/25/17 09:00 12/25/17 08:59 11/25/17 09:15 1 TAB Insulin Glargine (Lantus Solostar Pen) 70 units QAM SC 11/25/17 09:00 12/25/17 08:59 11/25/17 09:20 70 UNITS Irbesartan (Avapro Tab) 300 mg QAM PO 11/25/17 09:00 12/25/17 08:59 11/25/17 09:14 300 MG Pantoprazole Sodium (Protonix Tab) 40 mg QAM PO 11/25/17 09:00 12/25/17 08:59 11/25/17 07:31 40 MG Acetaminophen/ Hydrocodone Bitart ([place] 10/325 Tab) `1-2 tabs for pain 1 tab ... Q6H PRN PO 11/25/17 08:15 12/09/17 08:14 11/25/17 09:18 1 TAB Miscellaneous Information (Consult Glycemic Management Pharmacy) 1 ea UD PRN N/A 11/25/17 08:52 12/25/17 08:51 Miscellaneous Information (Pending Order) 1 ea TODAY@1100 N/A 11/25/17 11:00 11/25/17 14:30 11/25/17 13:00 1 EA Insulin Human Regular 250 units/ Sodium Chloride 252.5 ml @ 0 mls/hr Q24H IV 11/25/17 13:00 12/25/17 12:59 11/25/17 13:11 3.3 MLS/HR Insulin Aspart (novoLOG ASPART) SLIDING SCALE PCHS SC 11/25/17 13:00 12/25/17 12:59 11/25/17 13:40 18 UNITS (Marcela Monzon PA-C) Objective Vital Signs Date Time Temp Pulse Resp B/P (MAP) Pulse Ox O2 Delivery O2 Flow Rate FiO2 11/25/17 09:12 92 158/77 (104) 11/25/17 07:30 Room Air 11/25/17 07:10 36.6 92 16 139/69 (92) 98 Room Air 18 03:18 36.6 98 15 150/81 (104) 93 Room Air 11/24/17 23:55 Room Air 18 23:06 36.7 96 16 150/80 (103) 91 Room Air 11/24/17 17:50 36.7 100 19 150/72 (98) 97 Nasal Cannula 2.0 11/24/17 16:50 36.6 94 17 146/75 (98) 98 Nasal Cannula 2.0 11/24/17 16:21 36.7 107 19 152/79 (103) 96 Nasal Cannula 2.0 11/24/17 15:50 Nasal Cannula 4.0 11/24/17 15:37 102 14 18 15:37 102 14 99 11/24/17 15:36 157/76 18 15:32 93 10 18 15:32 93 10 99 18 15:31 155/74 18 15:27 91 11 99 18 15:27 92 11 18 15:26 156/74 18 15:22 91 11 18 15:22 90 11 99 18 15:21 155/73 18 15:18 88 11 18 15:18 88 11 99 18 15:16 150/66 18 15:13 90 5 18 15:13 89 5 99 18 15:11 159/70 18 15:08 91 7 18 15:08 90 7 99 18 15:07 86 8 18 15:07 85 8 99 18 15:06 166/71 18 15:02 91 11 99 18 15:02 91 11 18 15:01 160/73 18 14:57 91 7 18 14:57 91 7 100 18 14:56 164/79 18 14:52 87 9 18 14:52 87 9 99 11/24/17 14:51 160/75 11/24/17 14:47 87 3 11/24/17 14:47 87 3 100 11/24/17 14:45 158/84 11/24/17 14:42 88 9 98 11/24/17 14:42 88 9 11/24/17 14:41 159/73 11/24/17 14:37 87 10 11/24/17 14:37 87 10 98 11/24/17 14:36 162/73 11/24/17 14:34 86 14 11/24/17 14:34 86 14 98 11/24/17 14:33 162/76 11/24/17 14:31 179/80 11/24/17 14:29 90 13 99 11/24/17 14:29 90 13 11/24/17 14:26 172/76 11/24/17 14:25 36.4 82 16 172/76 (113) 99 Nasal Cannula 4 11/24/17 14:24 90 8 99 11/24/17 14:24 90 8 11/24/17 14:23 91 8 98 11/24/17 14:23 91 8 11/24/17 14:22 173/73 11/24/17 14:21 181/72 11/24/17 14:18 89 6 11/24/17 14:18 90 6 99 11/24/17 14:17 90 16 11/24/17 14:17 89 16 98 11/24/17 14:16 172/68 11/24/17 14:11 178/71 (Marcela Monzon, PA-C) Physical Exam General Appearance: no apparent distress Eyes: normal inspection, PERRL ENT: hearing grossly normal Neck: supple Respiratory/Chest: lungs clear, no respiratory distress, no accessory muscle use Cardiovascular: regular rate, rhythm Abdomen: normal bowel sounds, non tender, soft Extremities: no pedal edema, no calf tenderness Neurologic/Psychiatric: alert, normal mood/affect, oriented x 3 Skin: normal color, warm/dry, no rash (Marcela Monzon, PA-C) Laboratory Results Last 24 Hours Test 11/24/17 14:45 11/24/17 15:26 11/24/17 17:22 11/24/17 22:29 Bedside Glucose 257 mg/dl 226 mg/dl 230 mg/dl 258 mg/dl Test 11/25/17 05:10 11/25/17 08:03 11/25/17 12:42 White Blood Count 10.04 K/uL Red Blood Count 3.33 M/uL Hemoglobin 10.2 g/dL Hematocrit 30.1 % Mean Corpuscular Volume 90.4 fL Mean Corpuscular Hemoglobin 30.6 pg Mean Corpuscular Hemoglobin Concent 33.9 g/dl RDW Standard Deviation 42.7 fL RDW Coefficient of Variation 13.0 % Platelet Count 147 K/uL Mean Platelet Volume 10.5 fL Sodium Level 137 mmol/L Potassium Level 4.3 mmol/L Chloride Level 104 mmol/L Carbon Dioxide Level 26 mmol/L Anion Gap 7.0 mmol/L Blood Urea Nitrogen 25 mg/dl Creatinine 1.20 mg/dl Est Creatinine Clear Calc Drug Dose 65.6 ml/min Estimated GFR () 73.6 Estimated GFR (Non- 63.5 BUN/Creatinine Ratio 20.8 Random Glucose 252 mg/dl Calcium Level 8.0 mg/dl Bedside Glucose 349 mg/dl 464 mg/dl (Marcela Monzon, PA-C) Assessment and Plan Mr. Jones is a 62 year old man s/p laminectomy 11/24/17 s/p laminectomy by Dr. Nunes on 11/24: - Surgical management, pain management, PT/OT, and DVT prophylaxis as per primary team - Bowel regimen ordered - Encourage incentive spirometer - CBC and PRP- STABLE DMII w/ hyperglycemic likely secondary to IV steroids- last hgbA1c 8.6% in 2016: - Check hgbA1c - Pharmacy consulted for glycemic management HTN: Continue Norvasc 10 mg daily, Labetalol 200 mg BID, Avapro 300 mg daily, HCTZ 25 mg daily HLD: Lipitor 40 mg daily GI prophylaxis: Protonix daily DVT prophylaxis: As per surgical team Code Status: LEVEL I, FULL Dispo: As per primary team (Marcela Monzon PA-C) Supervising Note Dr. Figueroa I performed a history and physical examination on the patient. I reviewed above note and agree with it. I discussed plan with APC and patient. During my face to face encounter with the patient, I answered all of the patient's questions. (Andreas Figueroa M.D.)
[2017-11-25 16:15] VITALS: BP 159/71; PULSE 96; TEMP 36.8; O2SAT 96
[2017-11-25 23:19] VITALS: BP 147/71; PULSE 85; TEMP 36.7; O2SAT 97
[2017-11-26] MEDS: DEXAMETHASONE INJ 10 MG in SYRINGE 0 ML IV SCH (01:31)
[2017-11-26 06:14] LABS: HEMATOCRIT 28.3 % (42-52); HEMOGLOBIN 9.3 g/dL (14.0-18.0); MEAN CELL VOLUME 90.1 fL (80-100); MEAN CORPUSCULAR HEMOGLOBIN 29.6 pg (25-34); MEAN CORPUSCULAR HGB CONC 32.9 g/dl (32-36); MEAN PLATELET VOLUME 10.9 fL (7.4-10.4); PLATELET COUNT 171 K/uL (130-400); RED CELL DISTRIBUTION WIDTH CV 13.3 % (11.5-14.5); RED CELL DISTRIBUTION WIDTH SD 43.3 fL (36.4-46.3); WHITE BLOOD COUNT 12.37 K/uL (4.8-10.8)
[2017-11-26 06:40] LABS: CALCIUM 8.6 mg/dl (8.5-10.1); CREATININE 1.18 mg/dl (0.60-1.40); POTASSIUM 4.4 mmol/L (3.5-5.1)
[2017-11-26] MEDS: INSULIN REGULAR 250 UNITS in SODIUM CHLORIDE 0.9% 250ML 250 ML IV SCH (06:45)
[2017-11-26 07:03] VITALS: BP 150/69; PULSE 83; TEMP 36.5; O2SAT 98
[2017-11-26] MEDS ORDERED: NovoLIN-N (NPH) PER UNIT CHARGE SQ ONE (08:00)
[2017-11-26] MEDS: LABETALOL HCL 200 MG TAB PO SCH (08:11)
[2017-11-26] MEDS: HYDROCODONE/ACETAMI 10/325 TAB PO PRN (08:11)
[2017-11-26] MEDS: IRBESARTAN 150 MG TAB PO SCH (08:14)
[2017-11-26] MEDS: HYDROCHLOROTHIAZIDE 25 MG TAB PO SCH (08:14)
[2017-11-26] MEDS: PANTOprazole SOD 40 MG TAB PO SCH (08:14)
[2017-11-26] MEDS: BuPROPion SR 100 MG TABCR PO SCH (08:15)
[2017-11-26] MEDS: POLYETHYLENE (MIRALAX) 17 GM PACK PO SCH (08:15)
[2017-11-26 08:37] LABS: HEMOGLOBIN A1C 9.4 % (4.5-5.6)
[2017-11-26] MEDS ORDERED: [UNRECOGNIZED DRUG - REMARK] ONE (09:00)
[2017-11-26] MEDS: INSULIN GLARGINE SOLOSTAR 100 UNITS/ML 3 ML PEN SC SCH (09:08)
[2017-11-26] MEDS: MULTIVITAMIN TAB PO SCH (09:10)
[2017-11-26] MEDS: AMLODIPINE BESYLATE 5 MG TAB PO SCH (09:10)
[2017-11-26] MEDS: INSULIN ASPART 100 UNITS/ML 3 ML PEN SC SCH (09:10)
[2017-11-26] MEDS: ATORVASTATIN 20 MG TAB PO SCH (09:11)
[2017-11-26] MEDS ORDERED: HYDR-4383 PO (09:44)
[2017-11-26 10:06] VITALS: BP 150/69; PULSE 83; TEMP 36.5; O2SAT 98
--- NOTE | 2017-11-26 10:21 | DISCHARGE SUMMARY ---
DATE OF DISCHARGE: 11/26/2017 SUBJECTIVE: He is alert, oriented. No confusion. No chest pain or shortness of breath. OBJECTIVE: Vital signs stable, alert, oriented. No problems, no complaints. ASSESSMENT: Major reconstructive spine surgery, doing well in the short run. DISPOSITION: Includes instructions, precautions, education from the office and from here at the hospital. Prescriptions and followup all provided.
--- NOTE | 2017-11-26 11:45 | Pharmacy Progress Note ---
Pharmacy Abx Dose Short Note Date of Service Nov 26, 2017. Assessment & Plan Assessment * Patient transitioned off insulin drip this AM in anticipation of discharge * BSGs down to 150-170's range this AM * Last dose of Dexamethasone IV given ~0130 today; expect insulin sensitivity to improve over next 24-48 hours * NPH will be given with Lantus dose (equivalent to home dose) to help combat steroid induced hyperglycemia * Pre-lunch BSG elevated. Reviewed the use of correctional insulin in addition to prandial insulin on discharge: he uses CR of 1:5 but does not routinely correct. Advised patient to resume his home meds but also to use the following sliding scale in addition to his usual meal time carb coverage: * Sliding Scale: BSG 180-200: Add 1 unit BSG 201-220: Add 2 units BSG 221-240: Add 3 units BSG 241-260: Add 4 units BSG 261-280: Add 5 units If BSG greater than 280: Add 6 units * Patient was given the written scale. * Advised patient to seek help if his BSGs climb > 350 and he develops symptoms of hyperglycemia. Pharmacy will continue to follow and will adjust dose/frequency as necessary. Thank you.
[2017-11-26] MEDS ORDERED: INSULIN ASPART 100 UNITS/ML 3 ML PEN SC SCH (12:00)
== END 2017-11-26 13:46 | disposition home or self-care (01) | DRG 460 ==
LOC: C.ACU 08:27 → C.3E 09:30 → ENRESERV 15:14
PROVIDERS: ADMIT Orthopaedic Surgery Orthopaedic Surgery of the Spine; ATTEND Orthopaedic Surgery Orthopaedic Surgery of the Spine
PROC: 0SG10J1 Fusion of 2 or more Lumbar Vertebral Joints with Synthetic Substitute, Posterior Approach, Posterior Column, Open Approach (ICD-10-PCS; principal; 2017-11-24 11:00)
DX: M48.061 Spinal stenosis, lumbar region without neurogenic claudication (principal); M43.16 Spondylolisthesis, lumbar region; E11.65 Type 2 diabetes mellitus with hyperglycemia; I10 Essential (primary) hypertension; K21.9 Gastro-esophageal reflux disease without esophagitis; Z79.4 Long term (current) use of insulin; Z79.82 Long term (current) use of aspirin; Z79.899 Other long term (current) drug therapy; T38.0X5A Adverse effect of glucocorticoids and synthetic analogues, initial encounter

== ENCOUNTER → 2018-03-03 | Outpatient (CLI) | payer BC ==
[~2018-03-03] MED LIST changes: +ASPECOTC PO; -ASPI325T45 PO; -CEFAZOLIN 2000MG IV PUSH 10 ML IV SCH; +HYDR-4383 PO; -LACTATED RINGER'S 1000ML 1,000 ML IV SCH; -NSS 1000ML IV SCH
[2018-03-03 17:39] LABS: CREATININE 1.47 mg/dl (0.60-1.40)
== END | disposition home or self-care (01) ==
LOC: C.LABBC 13:39
PROVIDERS: ATTEND Orthopaedic Surgery Orthopaedic Surgery of the Spine
DX: E11.9 Type 2 diabetes mellitus without complications (principal)

== ENCOUNTER 2018-03-22 08:31 | Day surgery (SDC) | payer BC ==
[~2018-03-22] VITALS: Ht 167.6 cm; Wt 87.5 kg
[2018-03-22] VITALS (8 sets, daily range): BP systolic 138–184; BP diastolic 62–84; PULSE 78–94; TEMP 36.9–37.1; O2SAT 95–97; Ht 167.6 cm; Wt 87.5 kg
[~2018-03-22 08:31] MED LIST changes: -HYDR-4383 PO
--- NOTE | 2018-03-22 10:44 | Discharge Instructions ---
Discharge Instructions Procedure Procedure Date: March 22, 2018. Reason for visit: M48.061, Lumbar Spinal Stenosis. Discharge Discharge Date: March 22, 2018. Discharge Diagnosis: Lumbago Instructions Activity Recommendations: 1 Day-May resume regular activity, 48 Hours of decreased exertion, 1 Day with no exercise/sex/sports, 1 Day with no driving/ machine use Return to School/Work: limitations (light activity x 48 hours) Recommended Home Diet: Resume Previous Diet Provider Instructions: Fluoroscopic guided lumbar puncture is performed at the L4-L5 laminectomy site. Contrast was injected for CT myelogram. The procedure was well tolerated and without immediate complication. ACTIVITY RECOMMENDATIONS: * Rest today. * Resume regular activity in one day. MEDICATIONS: * May take Tylenol or Ibuprofen as needed for pain. DIET: * Resume previous diet. SPECIAL CARE INSTRUCTIONS: Call your doctor if: * Temperature above 101 degrees F. * Pain not relieved by pain medicine ordered. * Increased drainage or redness from incision. * Notify your doctor with any questions or concerns. Call your doctor or go to the nearest Emergency Department if you experience: * Increased chest pain or shortness of breath. FOLLOW UP VISIT: Follow-up with Referring Physician as scheduled. Allergies Coded Allergies: Lisinopril (Verified Allergy, Unknown, COUGH, 03/22/18) Morphine (Verified Allergy, Unknown, SWELLING ARMS AND HANDS, 03/22/18) [place] Recommendations: Call your doctor if: * Temperature above 101 degrees * Pain not relieved by pain medicine ordered * There is increased drainage or redness from any incision * You have any unanswered questions or concerns. Your Doctors Instructions noted above were prepared by provider Yuri Navarro. Patient Signature Section: Patient Instructions Signature Page Avi Jones Patient (or Guardian) Signature/Date: I have read and understand the instructions given to me by my caregivers. Caregiver/RN/Doctor Signature/Date: The above-named patient and/or guardian has received patient instructions on this date. + Original Patient Signature Page (only) stays with chart. Please make copy for patient.
[2018-03-22] MEDS ORDERED: ACETAMINOPHEN 500 MG TAB PO PRN (10:45)
--- NOTE | 2018-03-22 11:31 | DIAGNOSTIC IMAGING REPORT ---
CT MYELOGRAM OF THE LUMBAR SPINE CLINICAL HISTORY: Low back pain, status post lumbar spinal fusion surgery. COMPARISON STUDY: CT scan of the lumbar spine dated 10/21/2017. TECHNIQUE: Following the intrathecal administration of iodinated contrast, CT myelogram of the lumbar spine is performed from the lower thoracic spine to the sacrum. Images are reviewed in the axial, sagittal, and coronal planes. A dose lowering technique was utilized adhering to the principles of ALARA. CT DOSE: 715.86 mGy.cm FINDINGS: Lumbar spine: The skeletal structures are well mineralized. Vertebral body height is maintained throughout the lumbar spine. There is 5 mm anterolisthesis at L4-L5. Alignment is otherwise preserved. Anterior osteophytes are seen throughout. There are postoperative changes from laminectomy seen from L3 to S1. There has been fusion at L4-L5 with interpedicular screws in place. The orthopedic hardware appears intact. No fracture is identified. No lytic or blastic lesion is seen. The transverse processes are intact. Intervertebral discs: There is mild disc space narrowing from L3-L4 through L5-S1. Spinal cord and central canal. The spinal cord appears normal in morphology. The conus medullaris terminates at the level of L1. The nerve roots of the cauda equina are normal in morphology. There is no significant acquired compromise of the central canal. T12-L1: Unremarkable. L1-L2: Unremarkable. L2-L3: There is a small left lateral disc bulge. This causes mild left-sided subarticular stenosis. The central canal and neural foramina are clear. L3-L4: There is a small posterior disc osteophyte complex. There is bilateral subarticular stenosis. There is no significant acquired compromise of the central canal or neural foramina. L4-L5: There is bilateral subarticular stenosis secondary to anterolisthesis and mild disc bulge. There is mild bilateral neural foraminal stenosis. No significant central canal compromise is seen. L5-S1: The central canal and neural foramina appear patent. Sacrum: The visualized sacrum and bony pelvis appear intact. Soft tissues: Postoperative change is seen in the posterior paraspinous soft tissues. No fluid collection is identified. The partially imaged retroperitoneal structures are grossly unremarkable, but incompletely assessed. Mild atherosclerotic calcification is noted in the abdominal aorta. IMPRESSION: 1. There is no large disc herniation or significant acquired compromise of the central canal. 2. No destructive bony process is seen. 3. Postoperative change as above. The orthopedic hardware appears intact. 4. Mild spondylotic change as above. Dictated: 03/22/2018 11:15 AM Transcribed: 03/22/2018 11:31 AM JUAN RAMON_Conor Electronically signed by: Yuri Navarro M.D. 03/22/2018 11:52 AM Dictated Date/Time: 03/22/2018 11:15 AM
--- NOTE | 2018-03-22 11:50 | DIAGNOSTIC IMAGING REPORT ---
FLUOROSCOPIC GUIDED LUMBAR PUNCTURE CLINICAL HISTORY: Low back pain. Lumbar puncture for CT myelogram. PROCEDURE: The risks, benefits, and alternatives to the procedure is discussed with the patient who voiced understanding. Written informed consent was obtained. The patient was placed prone on the fluoroscopy table. The lower back was prepped and draped in the usual sterile fashion. 1% lidocaine was used for local anesthesia. A 22-gauge spinal needle was inserted into the L4 laminectomy space, and intrathecal positioning was confirmed by return of cerebrospinal fluid into the needle. Approximately 15 cc of [id number]-200 was then injected into the thecal sac under fluoroscopic guidance. The patient tolerated the procedure well. There were no immediate complications. The patient was then transported to CT for CT myelogram and will be observed in the medical treatment unit prior to discharge. Fluoroscopy time: 0.3 minutes. IMPRESSION: Fluoroscopic guided lumbar puncture with injection of intrathecal contrast for CT myelogram. There were no immediate complications. Electronically signed by: Yuri Navarro M.D. 03/22/2018 11:48 AM Dictated Date/Time: 03/22/2018 11:46 AM
== END 2018-03-22 15:17 | disposition home or self-care (01) ==
LOC: C.ACU 08:31
PROVIDERS: ATTEND Orthopaedic Surgery Orthopaedic Surgery of the Spine
DX: M48.061 Spinal stenosis, lumbar region without neurogenic claudication (principal)

== ENCOUNTER → 2018-07-03 | Outpatient (CLI) | payer BC ==
[~2018-07-03] MED LIST changes: -AMLO-114 PO; +AMLO10TA3 PO; -NAPR-1169 PO; +NAPR-22 PO
--- NOTE | 2018-07-03 12:01 | DIAGNOSTIC IMAGING REPORT ---
SI JOINTS 3 OR MORE VIEWS CLINICAL HISTORY: M54.31 Sciatica of right [id number] pain COMPARISON STUDY: No previous studies for comparison. FINDINGS: Findings consistent with a low lumbar laminectomy and fusion. Sacroiliac joints are symmetric. No evidence of bony ankylosis. Sacral foramina are symmetric. IMPRESSION: No acute process. The above report was generated using voice recognition software. It may contain grammatical, syntax or spelling errors. Electronically signed by: Davin Garcia M.D. 07/03/2018 12:00 PM Dictated Date/Time: 07/03/2018 11:57 AM
== END | disposition home or self-care (01) ==
LOC: C.RAD1850 11:36
PROVIDERS: ATTEND Nurse Practitioner
DX: M54.31 Sciatica, right side (principal)

== ENCOUNTER 2022-12-14 06:06 | Inpatient (IN) ==
--- NOTE | 2022-11-26 10:41 | PAT Medication Instructions ---
Medication Instructions Date of Service November 26, 2022 Home Medications Medication Instructions Recorded meclizine 25 mg tablet 25 mg PO TID PRN dizziness #30 tabs 09/01/20 lidocaine 5 % topical patch 1 patch topical DAILY PRN pain #15 10/26/20 ea OneTouch Delica Lancets 33 gauge #100 ea 11/18/20 (lancets) OneTouch Verio Flex meter #1 ea 11/18/20 (blood-glucose meter) OneTouch Verio test strips (blood #100 ea 11/18/20 sugar diagnostic) amitriptyline 25 mg tablet 25 mg PO .COMPLEX #42 tabs 06/02/21 insulin aspart U-100 100 unit/mL 100 unit continuous subcutaneous 02/11/22 subcutaneous solution (Novolog infusion DAILY 90 days #90 mL U-100 Insulin aspart) losartan 100 mg tablet 100 mg PO QAM #90 tabs 02/16/22 Dexcom G6 Sensor (blood-glucose #3 ea 05/17/22 sensor) Scooter #1 ea 05/18/22 metformin 500 mg tablet,extended 1,000 mg PO BID #360 tabs 06/23/22 release 24 hr labetalol 200 mg tablet 200 mg PO BID #180 tabs 07/09/22 levothyroxine 50 mcg tablet 50 mcg PO DAILY #30 tabs 09/20/22 famotidine 20 mg tablet 20 mg PO BID #180 tabs 09/22/22 gabapentin 300 mg capsule 600 mg PO TID #180 caps 10/04/22 atorvastatin 40 mg tablet 40 mg PO HS #90 tabs 10/08/22 duloxetine 60 mg capsule,delayed 60 mg PO QAM #90 caps 11/15/22 release amlodipine 10 mg tablet 10 mg PO QAM #90 tabs 11/17/22 hydrochlorothiazide 25 mg tablet 25 mg PO QAM #90 tabs 11/24/22 multivitamin 1 tab PO QAM fluticasone propionate 50 mcg/actuation nasal spray,suspension 2 sprays intranasal UD PRN magnesium gluconate 27 mg magnesium (500 mg) tablet 27 mg PO QAM potassium gluconate 595 mg (99 mg) tablet 595 mg PO QAM aspirin 81 mg tablet,delayed release (Adult Low Dose Aspirin) 81 mg PO QAM meclizine 25 mg tablet 25 mg PO TID PRN acetaminophen 500 mg tablet (Tylenol Extra Strength) 500 mg PO Q6H PRN lidocaine 5 % topical patch 1 patch topical DAILY PRN OneTouch Delica Lancets 33 gauge (lancets) OneTouch Verio Flex meter (blood-glucose meter) OneTouch Verio test strips (blood sugar diagnostic) amitriptyline 25 mg tablet 25 mg PO .COMPLEX insulin aspart U-100 100 unit/mL subcutaneous solution (Novolog U-100 Insulin aspart) 100 unit continuous subcutaneous infusion DAILY losartan 100 mg tablet 100 mg PO QAM Dexcom G6 Sensor (blood-glucose sensor) Scooter metformin 500 mg tablet,extended release 24 hr 1,000 mg PO BID labetalol 200 mg tablet 200 mg PO BID levothyroxine 50 mcg tablet 50 mcg PO DAILY famotidine 20 mg tablet 20 mg PO BID omeprazole 20 mg capsule,delayed release 20 mg PO QAM PRN gabapentin 300 mg capsule 600 mg PO TID atorvastatin 40 mg tablet 40 mg PO HS duloxetine 60 mg capsule,delayed release 60 mg PO QAM amlodipine 10 mg tablet 10 mg PO QAM hydrochlorothiazide 25 mg tablet 25 mg PO QAM Continue as directed levothyroxine 50 mcg tablet 50 mcg PO DAILY ASK your prescriber and surgeon aspirin 81 mg tablet,delayed release (Adult Low Dose Aspirin) 81 mg PO QAM lidocaine 5 % topical patch 1 patch topical DAILY PRN (do not apply on or near surgical site) amitriptyline 25 mg tablet 25 mg PO .COMPLEX DO NOT take the morning of surgery multivitamin 1 tab PO QAM fluticasone propionate 50 mcg/actuation nasal spray,suspension 2 sprays intranasal UD PRN(if needed) magnesium gluconate 27 mg magnesium (500 mg) tablet 27 mg PO QAM potassium gluconate 595 mg (99 mg) tablet 595 mg PO QAM meclizine 25 mg tablet 25 mg PO TID PRN losartan 100 mg tablet 100 mg PO QAM metformin 500 mg tablet,extended release 24 hr 1,000 mg PO BID hydrochlorothiazide 25 mg tablet 25 mg PO QAM Take morning of surgery With a small sip of water, OTHERWISE NOTHING TO EAT OR DRINK AFTER MIDNIGHT: acetaminophen 500 mg tablet (Tylenol Extra Strength) 500 mg PO Q6H PRN(if needed) labetalol 200 mg tablet 200 mg PO BID famotidine 20 mg tablet 20 mg PO BID omeprazole 20 mg capsule,delayed release 20 mg PO QAM PRN(if needed) gabapentin 300 mg capsule 600 mg PO TID duloxetine 60 mg capsule,delayed release 60 mg PO QAM amlodipine 10 mg tablet 10 mg PO QAM Take evening before surgery meclizine 25 mg tablet 25 mg PO TID PRN(if needed) acetaminophen 500 mg tablet (Tylenol Extra Strength) 500 mg PO Q6H PRN(if needed) metformin 500 mg tablet,extended release 24 hr 1,000 mg PO BID labetalol 200 mg tablet 200 mg PO BID famotidine 20 mg tablet 20 mg PO BID gabapentin 300 mg capsule 600 mg PO TID atorvastatin 40 mg tablet 40 mg PO HS Insulin Dependent Diabetic Patients Set insulin pump to basal rate and do NOT bolus after midnight. Other Notes If you have any questions please call us at [phone] or [phone] or [phone] or [phone]
--- NOTE | 2022-11-30 09:35 | Anesthesiology Consultation ---
Date of Service November 30, 2022 Assessment & Plan (1) Encounter for pre-operative examination: - a1c elevated at 8.3%. Surgeon's office notified. Awaiting endocrinology response to optimization note. Pt aware. - check BSG am DOS. - neurostimulator: pt aware to bring remote to hospital DOS. - insulin pump: pt advised to set to basal rate midnight before surgery and do not bolus after that time. He plans to contact his endocrinology provider to confirm how to adjust his pump. Chart Review Chart Review: Pending: Refer to Additional Notes / Consult section and Patient seen in Pre Admission Testing Teaching & Discussion Pre-Anesthesia Teaching/Discussion Notes: Instructed NPO after midnight before surgery, except medications with 15 cc of water. Medication instructions provi ded according to the PAT guidelines. History Surgery Operation Date: 12/14/22 10:05 Proposed Procedures p L2-L4 Decompression and Fusion, L4-L5 Hardware Removal, Spinal Cord Monitoring - Bashir Walton, DO Height/Weight Height: 5 ft 7 in Weight: 90.8 kg Allergies Allergy/AdvReac Type Severity Reaction Status Date / Time morphine Allergy Intermediate arms, Verified 11/15/22 09:56 hands swelling aspirin Allergy cough Verified 11/30/22 10:12 bupropion [From Wellbutrin] Allergy cough Verified 11/30/22 10:12 lisinopril AdvReac Mild cough Verified 11/15/22 09:56 Medications Home Medications Medication Instructions Recorded Confirmed Last Taken multivitamin 1 tab PO QAM 08/08/18 11/25/22 02/04/21 06:00 fluticasone propionate 50 2 sprays intranasal UD PRN NASAL 06/28/19 11/25/22 02/04/21 06:00 mcg/actuation nasal CONGESTION #1 g spray,suspension magnesium gluconate 27 mg 27 mg PO QAM 06/28/19 11/25/22 02/04/21 06:00 magnesium (500 mg) tablet potassium gluconate 595 mg (99 mg) 595 mg PO QAM 12/10/19 11/25/22 02/04/21 06:00 tablet meclizine 25 mg tablet 25 mg PO TID PRN dizziness #30 tabs 09/01/20 11/25/22 02/04/21 06:00 acetaminophen 500 mg tablet 500 mg PO Q6H PRN Pain 10/26/20 11/25/2202/03/21 08:00 (Tylenol Extra Strength) lidocaine 5 % topical patch 1 patch topical DAILY PRN pain #15 10/26/20 11/25/22 Unknown ea OneTouch Delica Lancets 33 gauge #100 ea 11/18/20 11/15/22 Unknown (lancets) OneTouch Verio Flex meter #1 ea 11/18/20 11/15/22 Unknown (blood-glucose meter) OneTouch Verio test strips (blood #100 ea 11/18/20 11/15/22 Unknown sugar diagnostic) insulin aspart U-100 100 unit/mL 100 unit continuous subcutaneous 02/11/22 11/25/22 Unknown subcutaneous solution (Novolog infusion DAILY 90 days #90 mL U-100 Insulin aspart) losartan 100 mg tablet 100 mg PO QAM #90 tabs 02/16/22 11/25/22 Unknown Dexcom G6 Sensor (blood-glucose #3 ea 05/17/22 11/15/22 Unknown sensor) Scooter #1 ea 05/18/22 11/15/22 Unknown metformin 500 mg tablet,extended 1,000 mg PO BID #360 tabs 06/23/22 11/25/22 Unknown release 24 hr labetalol 200 mg tablet 200 mg PO BID #180 tabs 07/09/22 11/25/22 Unknown levothyroxine 50 mcg tablet 50 mcg PO DAILY #30 tabs 09/20/22 11/25/22 Unknown famotidine 20 mg tablet 20 mg PO BID #180 tabs 09/22/22 11/25/22 Unknown omeprazole 20 mg capsule,delayed 20 mg PO QAM PRN gerd 09/22/22 11/25/22 Unknown release gabapentin 300 mg capsule 600 mg PO TID #180 caps 10/04/22 11/25/22 Unknown atorvastatin 40 mg tablet 40 mg PO HS #90 tabs 10/08/22 11/25/22 Unknown duloxetine 60 mg capsule,delayed 60 mg PO QAM #90 caps 11/15/22 11/25/22 Unknown release amlodipine 10 mg tablet 10 mg PO QAM #90 tabs 11/17/22 11/25/22 Unknown hydrochlorothiazide 25 mg tablet 25 mg PO QAM #90 tabs 11/24/22 11/25/22 Unknown Additional Notes: Pt states is no longer on aspirin 81 mg or amitriptyline, these were adjusted in EMR. He was advised can use meclizine or nasal spray if needed DOS. He verbalized full understanding and agreement, denied questions or concerns. Past Medical History Medical History (Updated 11/30/22 @ 10:01 by Aleisha Mccall PA-C) Anemia s/p colonoscopy/EGD for further evaluation which were unremarkable Carotid artery stenosis, asymptomatic 50-69% stenosis ICAs bilat Central hypothyroidism Chronic lumbar pain CKD (chronic kidney disease) stage II Depression HX Diabetes type 2, uncontrolled insulin pump Diabetic peripheral neuropathy Dyslipidemia GERD (gastroesophageal reflux disease) controlled, stable per pt Glaucoma History of Mohs micrographic surgery for skin cancer NOSE HTN (hypertension), benign controlled, stable per pt Low testosterone Lumbar stenosis + radiculopathy Multinodular goiter Obesity PAD (peripheral artery disease) Retinopathy Spinal cord stimulator status Implanted 05/20/2020 Thyroid nodule under observation Patient denies h/o stroke, seizures, heart attack, heart failure, blood clots or blood transfusions. Exercise / Class Metabolic Activity II 4-5 Yardwork/Stairs/Walk up hill (denies chest discomfort or shortness of breath with 1 FOS) Past Family History Family History Mother , 1987-pancreatic cancer Family history of diabetes mellitus Cancer Father Family history of diabetes mellitus Hx of CABG Hypertension Grandmother (Maternal) Family history of diabetes mellitus Denies family history of Ovarian cancer Prostate cancer Coronary heart disease Breast cancer Colorectal cancer Past Surgical History Surgical History (Updated 11/30/22 @ 09:32 by Aleisha Mccall PA-C) H/O repair of left rotator cuff X2 H/O repair of right rotator cuff History of bilateral carpal tunnel release History of colonoscopy History of esophagogastroduodenoscopy (EGD) History of lumbar fusion L3-L5 decompression fusion 11/24/1718 Grade 3-4 view, MAC 3, ETT 8. History of reverse total replacement of left shoulder joint 12/16/1819 Grade 2 view, Carbajal 2, ETT 7.5 + PNB. S/P wrist surgery RIGHT Past Anesthesia History No Hx of Anesthesia Complications and No Family Hx of Anesthesia Complications History of PONV No Hx of Motion Sickness and History of PONV (denies needing scop patch) Social History Smoking Status: Never smoker Do You Dip or Chew Tobacco: No Hx Alcohol Use: No Hx Substance Use: No substance use type: does not use Review of Systems Snoring, denies witnessed apneas. Patient denies chest pain, shortness of breath, dyspnea on exertion, fever, chills, cough, wheezing, or palpitations. Physical Exam Vital Signs Vitals BP 149/74 (he states BP is typically in better range, is anxious about surgery today) P 68 TEMP 97.1 SP02 98% on RA RESP18 Physical Full cervical extension range of motion without pain TMD 3.5 finger breadths Mallampati Score 2 Dentition: intact, denies chipped or loose teeth, caps/crowns, implants or bridges Lungs: normal respiratory effort. Clear throughout to auscultation, no adventitious breath sounds Cardiac: regular rate and rhythm, no murmurs noted Carotid arteries: negative bruit bilat Lab Results Anesthesia Preop Results Results Anesthesia Widget: WBC 5.49 K/ul (4.8-10.8) 11/30/22 Hgb 11.9 g/dl (14.0-18.0) L 11/30/22 Hct 36.3 % (40.1-51.0) L 11/30/22 Plt 187 K/uL (130-400) 11/30/22 Na 140 mmol/L (136-145) 11/30/22 K 4.5 mmol/L (3.5-5.1) 11/30/22 Cl 106 mmol/L (98-107) 11/30/22 CO2 27 mmol/L (21-32) 11/30/22 BUN 20 mg/dl (6-23) 11/30/22 Creat 1.25 mg/dl (0.6-1.4) 11/30/22 Glucose Level 135 mg/dl (70-99(Fasting)) H 11/30/22 PT 10.6 Seconds (9.0-12.0) 11/30/22 PTT 24.0 Seconds (21.0-31.0) 11/30/22 INR 1.0 (0.9-1.1) 11/30/22 TSH 0.064 uIu/ml (0.300-4.500) L 11/15/22 Free T4 0.76 ng/dl (0.61-1.60) 11/15/22 HA1c 8.3 % (4.5-5.6) H 11/30/22 Urine Color Yellow 11/30/22 Urine Appearance Clear (Clear) 11/30/22 Urine pH 6.0 (4.5-7.5) 11/30/22 Urine Specific [place] 1.012 (1.000-1.030) 11/30/22 Urine Protein Negative (Negative) 11/30/22 Urine Glucose (UA) Negative (Negative) 11/30/22 Urine Ketones Negative (Negative) 11/30/22 Urine Blood Negative (Negative) 11/30/22 Urine Nitrite Negative (Negative) 11/30/22 Urine Bilirubin Negative (Negative) 11/30/22 Urine Urobilinogen Negative (Negative) 11/30/22 Urine Leukocyte Esterase Negative (Negative) 11/30/22 Blood Type A Positive 11/30/22 Antibody Screen NEGATIVE 11/30/22 Testing Electrocardiogram Date: 11/30/22 NSR, rate 74 bpm Chest X-Ray Date: 11/30/22 No significant change compared to the prior study. No acute process. Other Testing Lumbar spine MRI 11/03/22 1. No acute fracture or marrow edema. 2. Progressive degenerative changes at the L2-L3 level as above, now with moderate central canal stenosis, moderate left and [id number] right neural foraminal narrowing. 3. Posterior interbody uday and screw fusion at L4-L5. Carotid doppler 10/07/22 50-69% ICAs bilat > 50% stenosis external carotid arteries bilat Pituitary MRI 08/26/22 The pituitary gland is normal without evidence of adenoma. COVID-19 Risk Screen Screening Information COVID-19 Screen Date: 11/30/22 Exposure 21 Days Family/Household +COVID Last 21 Days: No Exposure 10 Days Any COVID Exposure Last 10 Days: No Symptoms Last 10 Days Experienced COVID Sx Last 10 Days: No + COVID 0-90 Days COVID + in Last 0-90 Days: No
[~2022-12-14 06:06] MED LIST changes: +ACETAMINOPHEN 500 MG TAB PO SCH; -AMLO10TA3 PO; -ASPECOTC PO; -ATOR-24 PO; -BUPR100T8 PO; +CeleBREX 200 MG CAP PO SCH; +GABAPENTIN 300 MG CAP PO SCH; -HYDR25TA5 PO; -INSU1INJ33 INJ; -IRBE1TAB50 PO; -LABE1TAB28 PO; +LR 15ML/HR IV SCH; -MAGNESIUM PO; -METF-382 PO; -MULT-506 PO; -NAPR-22 PO; -NOVOLOG INJ; -POTASSIUM PO; -PRLSR20 PO; +ceFAZolin 2000MG 2,000 MG/15 ML SYR IV SCH
[2022-12-14] MEDS ORDERED: BUPIVACAINE/EPINEPHRINE 0.5% MPF 1:200,000 30 ML VIAL ONE (07:01)
[2022-12-14] MEDS ORDERED: ceFAZolin 330 MG/ML 1 GM VIAL ONE (07:01)
[2022-12-14] MEDS ORDERED: fentaNYL citrate 100 MCG/2 ML VIAL ONE (07:15)
[2022-12-14] MEDS ORDERED: LIDOCAINE 2% MPF LOCAL 5 ML VIAL INFIL ONE (07:15)
[2022-12-14] MEDS ORDERED: MIDAZOLAM HCL 1 MG/ML 2ML VIAL ONE (07:15)
[2022-12-14] MEDS ORDERED: ROCURONIUM BROMIDE 10 MG/ML 5 ML VIAL IV ONE (07:15)
[2022-12-14] MEDS ORDERED: DEXAMETHASONE SOD INJ 4 MG/ML VIAL ONE (07:15)
[2022-12-14] MEDS ORDERED: PROPOFOL IV EMULSION 10 MG/ML 20 ML VIAL IV ONE (07:15)
--- NOTE | 2022-12-14 07:37 | History & Physical Bridge Note ---
Date of Service December 14, 2022 History & Physical Bridge Note I have examined the patient, reviewed the History & Physical and in the interval since the performance of the History & Physical I have noted the following changes of clinical significance: no changes noted
--- NOTE | 2022-12-14 07:38 | History & Physical Report ---
Date of Service December 14, 2022 Assessment & Plan (1) Neurogenic claudication due to lumbar spinal stenosis: Plan: L2-L4 decompression fusion, L4-L5 hardware removal History of Present Illness Chief Complaint: Back and leg pain Primary Care Provider: Timbo Tejeda MD This is a 67-year-old male who presents chronic cyst Extensive course of nonoperative care is here for surgical invention. Allergies Allergy/AdvReac Type Severity Reaction Status Date / Time morphine Allergy Intermediate arms, Verified 12/14/22 06:41 hands swelling bupropion [From Wellbutrin] Allergy cough Verified 12/14/22 06:41 lisinopril AdvReac Mild cough Verified 12/14/22 06:41 Home Medications Medication Instructions Recorded Confirmed Type multivitamin 1 tab PO QAM 08/08/18 12/14/22 History fluticasone propionate 50 2 sprays intranasal UD PRN NASAL 06/28/19 12/02/22 History mcg/actuation nasal CONGESTION #1 g spray,suspension magnesium gluconate 27 mg 27 mg PO QAM 06/28/19 12/02/22 History magnesium (500 mg) tablet potassium gluconate 595 mg (99 mg) 595 mg PO QAM 12/10/19 12/14/22 History tablet meclizine 25 mg tablet 25 mg PO TID PRN dizziness #30 tabs 09/01/20 12/02/22 Rx acetaminophen 500 mg tablet 500 mg PO Q6H PRN Pain 10/26/20 12/14/22 History (Tylenol Extra Strength) lidocaine 5 % topical patch 1 patch topical DAILY PRN pain #15 10/26/20 12/02/22 Rx ea OneTouch Delica Lancets 33 gauge #100 ea 11/18/20 12/02/22 Rx (lancets) OneTouch Verio Flex meter #1 ea 11/18/20 12/02/22 Rx (blood-glucose meter) OneTouch Verio test strips (blood #100 ea 11/18/20 12/02/22 Rx sugar diagnostic) insulin aspart U-100 100 unit/mL 100 unit continuous subcutaneous 02/11/22 12/02/22 Rx subcutaneous solution (Novolog infusion DAILY 90 days #90 mL U-100 Insulin aspart) losartan 100 mg tablet 100 mg PO QAM #90 tabs 02/16/22 12/14/22 Rx Dexcom G6 Sensor (blood-glucose #3 ea 05/17/22 12/02/22 Rx sensor) Scooter #1 ea 05/18/22 12/02/22 Rx metformin 500 mg tablet,extended 1,000 mg PO BID #360 tabs 06/23/22 12/14/22 Rx release 24 hr labetalol 200 mg tablet 200 mg PO BID #180 tabs 07/09/22 12/14/22 Rx levothyroxine 50 mcg tablet 50 mcg PO DAILY #30 tabs 09/20/22 12/14/22 Rx omeprazole 20 mg capsule,delayed 20 mg PO QAM PRN gerd 09/22/22 12/14/22 History release gabapentin 300 mg capsule 600 mg PO TID #180 caps 10/04/22 12/14/22 Rx atorvastatin 40 mg tablet 40 mg PO HS #90 tabs 10/08/22 12/14/22 Rx duloxetine 60 mg capsule,delayed 60 mg PO QAM #90 caps 11/15/22 12/14/22 Rx release amlodipine 10 mg tablet 10 mg PO QAM #90 tabs 11/17/22 12/14/22 Rx hydrochlorothiazide 25 mg tablet 25 mg PO QAM #90 tabs 11/24/22 12/14/22 Rx Past Med/Surg History Medical History (Updated 12/14/22 @ 07:38 by Bashir Walton DO) Anemia s/p colonoscopy/EGD for further evaluation which were unremarkable Carotid artery stenosis, asymptomatic 50-69% stenosis ICAs bilat Central hypothyroidism Chronic lumbar pain CKD (chronic kidney disease) stage II Depression HX Diabetes type 2, uncontrolled insulin pump Diabetic peripheral neuropathy Dyslipidemia GERD (gastroesophageal reflux disease) controlled, stable per pt Glaucoma History of Mohs micrographic surgery for skin cancer NOSE HTN (hypertension), benign controlled, stable per pt Low testosterone Lumbar stenosis + radiculopathy Multinodular goiter Obesity PAD (peripheral artery disease) Retinopathy Spinal cord stimulator status Implanted 05/20/2020 Thyroid nodule under observation Surgical History H/O repair of left rotator cuff X2 H/O repair of right rotator cuff History of bilateral carpal tunnel release History of colonoscopy History of esophagogastroduodenoscopy (EGD) History of lumbar fusion L3-L5 decompression fusion 1/18/18 Grade 3-4 view, MAC 3, ETT 8. History of reverse total replacement of left shoulder joint 12/16/1819 Grade 2 view, Carbajal 2, ETT 7.5 + PNB. S/P wrist surgery RIGHT Family History Mother Family history of diabetes mellitus Cancer Father Family history of diabetes mellitus Hx of CABG Hypertension Grandmother (Maternal) Family history of diabetes mellitus Denies family history of Ovarian cancer Prostate cancer Coronary heart disease Breast cancer Colorectal cancer Social History Smoking Status: Never smoker Second Hand Exposure: Yes (ON OCC A CHILD); Do You Dip or Chew Tobacco: No; Tobacco Cessation Education Requested by Patient: No Hx Alcohol Use: No Hx Substance Use: No Preferred Language: Yoruba Communication Ability: Effective Visual Impairment: No Limitations Hearing Ability: Normal Laborer Wharf Required: No Beliefs That Will Affect Care: None marital status: Current Living Situation: Spouse Current Living Situation Comment: 4 children current occupational status: retired 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 Other Information That Helps Us Care for You: No Feels Safe at Home: Yes Safety Concerns: Feels Safe At This Time Childhood Exposure to Second-Hand Smoke: Yes caffeine: Yes Dental Care, Regularly: No Physical Activity Frequency: Does not Exercise Seatbelt Use: always Sunscreen Use: Yes Assistive Devices: Glasses Physical Exam Physical Exam: Patient is alert and oriented Heart regular rhythm Lungs clear Results & Data Results & Data ([facility]) Vital Signs (Past 12 Hours) Vital Signs Temp Pulse Resp BP Pulse Ox O2 Del Method 12/14/22 06:48 36.7 C 76 16 162/76 H 96 Room Air
[2022-12-14] MEDS ORDERED: ATROPINE SULFATE 0.1 MG/ML 10ML SYR IV PRN (07:47)
[2022-12-14] MEDS ORDERED: ONDANSETRON INJ 2 MG/ML 2 ML VIAL IV PRN ×2 (07:47→11:47)
[2022-12-14] MEDS ORDERED: ePHEDrine sulfate 50 MG/ML AMP IV PRN (07:47)
[2022-12-14] MEDS ORDERED: HYDROmorphone INJ 2 MG/ML SYR/VIAL IV PRN (07:47)
[2022-12-14] MEDS ORDERED: FLOSEAL HEMOSTATIC MATRIX 10ML TOP ONE (08:43)
[2022-12-14] MEDS ORDERED: SURGICEL ABSORB HEMOSTAT 2IN X 14IN TOP ONE (09:54)
[2022-12-14] MEDS ORDERED: ONDANSETRON INJ 2 MG/ML 2 ML VIAL ONE (09:58)
[2022-12-14] MEDS ORDERED: NEOSTIGMINE METHYLSULFATE 1 MG/ML 10ML VIAL ONE (09:58)
[2022-12-14] MEDS ORDERED: GLYCOPYRROLATE 0.2 MG/ML VIAL ONE (09:58)
--- NOTE | 2022-12-14 10:07 | Operative Report ---
Post Operative Report Pre & Post Diagnosis Operation Date: 12/14/22 07:45 Pre-Op Diagnosis: Spinal Stenosis, Lumbar Region with Neurogenic Cla Post-Op Diagnosis: Spinal Stenosis, Lumbar Region with Neurogenic Cla I identified the patient and participated in the time-out.: Yes Procedure Operation Date: 12/14/22 07:45 Actual Procedures #1 removal of posterior instrumentation L4-L5. #2 exploration of fusion L4-L5. #3 revision decompression with bilateral medial facetectomies and foraminotomies L1-L2, L2-L3 and L3-L4. #4 posterior spinal fusion L2-L3 L3-L4. #5 placement posterior instrumentation L2-L5. #6 interbody fusion L2-L3 L3-L4. #7 placement of Spira 12 x 26 mm cage at L2-L3 and 11 x 26 mm cage at L3-L4. #7 placement locally harvested morselized autograft in the posterior gutters. #8 placement of I factor model V toss interbody space and posterior lateral gutters. Surgeon Bashir Walton, Welfare Manager Aby Trujillo Estimated Blood Loss 400 Findings Consistent with Post-Op Diagnosis Specimens None Indications This is a 67-year-old male well-known to me the presents with above-mentioned diagnosis after failing course of nonoperative care is here for surgical invention. Description of Procedure Patient was met with identified informed consent obtained. Patient was then taken to the operative suite underwent patient placed in a prone position on the [place] table top Darell frame. All bony promises well-padded eyes inspected to ensure no external pressure placed upon the. This point the lumbar spine was prepped and draped in normal sterile fashion. Sharp dissection with the assistance of Bovie cautery was performed down to and exposing the lamina and transverse processes of L2-L3 and instrumentation at L4-L5 bilaterally. Then proceeded move the hardware bilaterally explore the fusion mass noting it to be mature and intact. Then performed a revision complete laminectomy of L3 L2 and partial laminectomy of L1 including bilateral medial facetectomies and foraminotomies addressing severe lateral recess and foraminal stenosis. Pedicle screws then placed L2 L3-L4-L5 bilaterally with assistance of fluoroscopy and the properly sized uday placed. By way of a trans foraminal approach on the right complete discectomy of L3-L4 was performed endplates curetted to subcortical bleeding bone and 11 x 26 mm spiral cage with I factor tapped in position. Then proceeded L2-L3 and again by way of a transforaminal approach on the right complete discectomy performed endplates curetted to subcortically bone and a 12 x 26 mm spiral cage with I factor tapped in position. The rods were then locked in final position bilaterally. The transverse processes of L2-L3-L4 burred to subcortically bone. I factor bone of the test and locally harvested morselized autograft was placed in the posterior gutters. 15 round MARILYN drain inserted. The incision was then closed with 1 Vicryl the fascia 2-0 Vicryl subcutaneously and 4 Monocryl for final skin closure. Steri-Strip sterile dressings placed. Patient waken taken to PACU in stable condition. Please note spinal cord monitoring was utilized at the procedure no changes noted. Lastly Aby Trujillo was present at the entire surgeon while the patient positioning complex portions of the surgery and final skin closure. I attest to the content of the Intraoperative Record and any orders documented therein. Any exceptions are noted below.
[2022-12-14] MEDS: fentaNYL citrate 100 MCG/2 ML VIAL IV PRN ×2 (10:38→10:55)
[2022-12-14] MEDS ORDERED: NovoLIN-R INSULIN PER UNIT CHARGE SC ONE (10:45)
--- NOTE | 2022-12-14 11:24 | Anesthesiology Progress Note ---
Date of Service December 14, 2022 Anesthesia Post Procedure Vital Signs Vital Signs: Temp Pulse Pulse Resp BP Pulse Ox O2 Del Method 12/14/22 11:00 36.4 C L 75 12 142/73 H 93 Room Air 12/14/22 10:50 76 19 155/94 H 94 Oxymask 12/14/22 10:40 69 12 156/70 H 100 Oxymask 12/14/22 10:30 76 18 150/86 H 100 Oxymask 12/14/22 10:20 36.8 C 69 12 157/72 H 100 Oxymask 12/14/22 06:48 36.7 C 76 16 162/76 H 96 Room Air O2 Flow Rate 12/14/22 11:00 12/14/22 10:50 4 12/14/22 10:40 4 12/14/22 10:30 6 12/14/22 10:20 6 12/14/22 06:48 Pain Intensity Back: Pain Intensity: 3 Transfer of Care Handoff Completed per policy Notes Mental Status: alert / awake / arousable and participated in evaluation Patient Amnestic to Procedure: Yes Nausea / Vomiting: adequately controlled Pain: adequately controlled Airway Patency, RR, SpO2: stable & adequate BP & HR: stable & adequate Hydration State: stable & adequate Anesthetic Complications: no major complications apparent and Pt Satisfied with anesthetic care
[2022-12-14] MEDS ORDERED: HYDROmorphone INJ 0.5 MG/0.5 ML SYR IV PRN (11:47)
[2022-12-14] MEDS ORDERED: oxyCODONE HCL IR 5 MG TAB (IMMEDIATE RELEASE) PO PRN (11:47)
[2022-12-14] MEDS ORDERED: ACETAMINOPHEN 1,000 MG/100 ML VIAL IV PRN (11:47)
[2022-12-14] MEDS ORDERED: hydrOXYzine HCl 25 MG TAB PO PRN (11:47)
[2022-12-14] MEDS ORDERED: ALUMINUM/MAGNESIUM SUSP 30 ML UDC PO PRN (11:47)
[2022-12-14] MEDS ORDERED: MAGNESIUM HYDROXIDE SUSP 30 ML UDC PO PRN (11:47)
[2022-12-14] MEDS ORDERED: METOCLOPRAMIDE HCL INJ 5 MG/ML 2 ML VIAL IV PRN (11:47)
[2022-12-14] MEDS ORDERED: DO NOT ADMINISTER PNEUMOCOCCAL VACCINE PRN (11:47)
[2022-12-14] MEDS ORDERED: FAMOTIDINE 20 MG TAB PO PRN (11:47)
[2022-12-14] MEDS ORDERED: SOD PHOSPHATE/SOD BIPHOSPHATE ENEMA 132 ML BTL PR PRN (11:47)
[2022-12-14] MEDS ORDERED: NALOXONE HCL 0.4 MG/1 ML VIAL/CARP IV PRN (11:47)
[2022-12-14] MEDS ORDERED: MECLIZINE HCL 25 MG TAB PO PRN (11:47)
[2022-12-14] MEDS ORDERED: PHARMACY GLYCEMIC MGMT CONSULT PRN ×2 (11:47→18:53)
[2022-12-14] MEDS ORDERED: ONDANSETRON 4 MG OD TAB PO PRN (11:47)
[2022-12-14] MEDS ORDERED: bisacodyL 10 MG SUPP PR PRN (11:47)
[2022-12-14] MEDS ORDERED: diphenhydrAMINE Capsule 25 MG CAP PO PRN (11:47)
[2022-12-14] MEDS ORDERED: LORazepam 0.5 MG TAB PO PRN (11:47)
[2022-12-14] MEDS ORDERED: DO NOT ADMINISTER FLU VACCINE PRN (11:47)
[2022-12-14] MEDS ORDERED: LORazepam 2 MG/1 ML VIAL IV PRN (11:47)
[2022-12-14] MEDS ORDERED: HYDROmorphone INJ 1 MG/ML SYRINGE IV PRN (11:47)
[2022-12-14] MEDS ORDERED: PROMETHAZINE HCL 12.5 MG in SODIUM CHLORIDE 0.9% 50 ML IV PRN (11:47)
[2022-12-14] MEDS: SODIUM CHLORIDE 0.9% 1000ML 1,000 ML IV SCH ×2 (12:00→20:24)
--- NOTE | 2022-12-14 12:15 | Hospitalist Consultation ---
Date of Consultation December 14, 2022 Assessment & Plan (1) Neurogenic claudication due to lumbar spinal stenosis: Neurogenic claudication 2/2 spinal stenosis Failed outpatient therapy S/p 12/14/22: #1 removal of posterior instrumentation L4-L5. #2 exploration of fusion L4-L5. #3 revision decompression with bilateral medial facetectomies and foraminotomies L1-L2, L2-L3 and L3-L4. #4 posterior spinal fusion L2-L3 L3-L4. #5 placement posterior instrumentation L2-L5. #6 interbody fusion L2-L3 L3-L4. #7 placement of Spira 12 x 26 mm cage at L2-L3 and 11 x 26 mm cage at L3-L4. #7 placement locally harvested morselized autograft in the posterior gutters. #8 placement of I factor model V toss interbody space and posterior lateral gutters. Ambulation, DVT prophylaxis, pain control per primary team Preoperative EKG with normal sinus rhythm, unchanged from 2019, no ST segment/T wave changes. No history of CAD/IA/CVD Doing well postoperatively, neurovascularly intact, no lower extremity pain. No tachycardia, BP normal at bedside assessment. Patient feels well without lightheadedness or dizziness. If tachycardic or lightheaded, check H&H tonight, otherwise CBC in the morning. Type II DM A1c 8.3% preoperatively CGM with insulin pump, follows with Endocrinology. May use CGM and insulin pump while inpatient. Patient is hyperglycemic, he prefers not to have pharmacy controlled basal bolus if possible. Patient is comfortable managing his own device, is setting up his pump at bedside which she has with him. Reasonable to allow patient to continue control, recheck BSG before dinner, if greater than 180 then we will transition to glycemic consult. Patient agreeable to this, discussed with nursing Preop A1c 8.3%, patient has been cutting out sweets from his diet and working to get under a Central hypopituitarism Last TSH: 0.064 with normal free T4 Continue Synthroid 50 mcg daily Hypertension Continue amlodipine 10 mg every morning Continue labetalol 200 mg p.o. twice daily Resume losartan 12/16/2022, may resume a.m. of 12/14 if hypertensive and creatinine normal Carotid stenosis Continue statin Recommend daily aspirin after 24 hours if okay per surgical team CKD - Baseline creatinine as outpatient is 1.25 Trend BMP daily Renally dose medications as needed Dyslipidemia Continue statin GERD Continue PPI, increase omeprazole 20 mg to Protonix 40 mg while inpatient for stress ulcer prophylaxis (2) Hypothyroidism: (3) Diabetes type 2, uncontrolled: (4) HTN (hypertension), benign: (5) GERD (gastroesophageal reflux disease): (6) Carotid artery stenosis, asymptomatic: (7) Depression: (8) CKD (chronic kidney disease): History of Present Illness Attending Physician: Bashir Walton DO History of Present Illness Avi is a 67-year-old male with a past medical history of central hypopituitarism, type II DM, hypertension, carotid stenosis, CKD, and dyslipidemia who presented for scheduled lumbar decompression and fusion 12/09 spinal stenosis with neurogenic claudication. Underwent procedure 12/14/2022 with estimated 400 cc of blood loss. Sawyer is seen at the bedside postoperatively in the presence of his family. He reports he feels well, although does have some back pain at his surgical site. He currently does not have any pain radiating into his legs, preoperatively was having neuropathic pain shooting into both legs intermittently. He denies fever/chills/sweats. He is not lightheaded or dizzy. He denies chest pain or shortness of breath postoperatively. He reports he does feel like he has the urge to pee, is aware that he has a Spence catheter in. Spence is draining light yellow urine. Patient has a history of diabetes managed with an insulin pump, and has been working hard to get his A1c under 8.0, last was 8.3. Reports that he is comfortable with and would prefer to use his own insulin pump rather than switch to glycemic management. Preoperatively is hyperglycemic. Patient is alert and oriented and has restarted his own pump. If he gets good glycemic control by the evening, may continue using pump. Otherwise will transition to pharmacy control basal bolus, discussed with pharmacy and patient. Patient reports he did take his labetalol and amlodipine this morning, losartan was held. Social, surgical, medical history reviewed. Allergies reviewed. Patient is fu ll code. Is seen at bedside with his family present however no other questions or concerns following bedside assessment. Allergies Allergy/AdvReac Type Severity Reaction Status Date / Time morphine Allergy Intermediate arms, Verified 12/14/22 06:41 hands swelling bupropion [From Wellbutrin] Allergy cough Verified 12/14/22 06:41 lisinopril AdvReac Mild cough Verified 12/14/22 06:41 Home Medications Medication Instructions Recorded Confirmed Type multivitamin 1 tab PO QAM 08/08/18 12/14/22 History fluticasone propionate 50 2 sprays intranasal UD PRN NASAL 06/28/19 12/02/22 History mcg/actuation nasal CONGESTION #1 g spray,suspension magnesium gluconate 27 mg 27 mg PO QAM 06/28/19 12/02/22 History magnesium (500 mg) tablet potassium gluconate 595 mg (99 mg) 595 mg PO QAM 12/10/19 12/14/22 History tablet meclizine 25 mg tablet 25 mg PO TID PRN dizziness #30 tabs 09/01/20 12/02/22 Rx acetaminophen 500 mg tablet 500 mg PO Q6H PRN Pain 10/26/20 12/14/22 History (Tylenol Extra Strength) lidocaine 5 % topical patch 1 patch topical DAILY PRN pain #15 10/26/20 12/02/22 Rx OneTouch Delica Lancets 33 gauge #100 ea 11/18/20 12/02/22 Rx (lancets) OneTouch Verio Flex meter #1 ea 11/18/20 12/02/22 Rx (blood-glucose meter) OneTouch Verio test strips (blood #100 ea 11/18/20 12/02/22 Rx sugar diagnostic) insulin aspart U-100 100 unit/mL 100 unit continuous subcutaneous 02/11/22 12/02/22 Rx subcutaneous solution (Novolog infusion DAILY 90 days #90 mL U-100 Insulin aspart) losartan 100 mg tablet 100 mg PO QAM #90 tabs 02/16/22 12/14/22 Rx Dexcom G6 Sensor (blood-glucose #3 ea 05/17/22 12/02/22 Rx sensor) Scooter #1 ea 05/18/22 12/02/22 Rx metformin 500 mg tablet,extended 1,000 mg PO BID #360 tabs 06/23/22 12/14/22 Rx release 24 hr labetalol 200 mg tablet 200 mg PO BID #180 tabs 07/09/22 12/14/22 Rx levothyroxine 50 mcg tablet 50 mcg PO DAILY #30 tabs 09/20/22 12/14/22 Rx omeprazole 20 mg capsule,delayed 20 mg PO QAM PRN gerd 09/22/22 12/14/22 History release gabapentin 300 mg capsule 600 mg PO TID #180 caps 10/04/22 12/14/22 Rx atorvastatin 40 mg tablet 40 mg PO HS #90 tabs 10/08/22 12/14/22 Rx duloxetine 60 mg capsule,delayed 60 mg PO QAM #90 caps 11/15/22 12/14/22 Rx release amlodipine 10 mg tablet 10 mg PO QAM #90 tabs 11/17/22 12/14/22 Rx hydrochlorothiazide 25 mg tablet 25 mg PO QAM #90 tabs 11/24/22 12/14/22 Rx Patient History Medical History (Updated 12/14/22 @ 07:38 by Bashir Walton DO) Anemia s/p colonoscopy/EGD for further evaluation which were unremarkable Carotid artery stenosis, asymptomatic 50-69% stenosis ICAs bilat Central hypothyroidism Chronic lumbar pain CKD (chronic kidney disease) stage II Depression HX Diabetes type 2, uncontrolled insulin pump Diabetic peripheral neuropathy Dyslipidemia GERD (gastroesophageal reflux disease) controlled, stable per pt Glaucoma History of Mohs micrographic surgery for skin cancer NOSE HTN (hypertension), benign controlled, stable per pt Low testosterone Lumbar stenosis + radiculopathy Multinodular goiter Obesity PAD (peripheral artery disease) Retinopathy Spinal cord stimulator status Implanted 05/20/2020 Thyroid nodule under observation Surgical History H/O repair of left rotator cuff X2 H/O repair of right rotator cuff History of bilateral carpal tunnel release History of colonoscopy History of esophagogastroduodenoscopy (EGD) History of lumbar fusion L3-L5 decompression fusion 11/24/1718 Grade 3-4 view, MAC 3, ETT 8. History of reverse total replacement of left shoulder joint 12/16/1819 Grade 2 view, Carbajal 2, ETT 7.5 + PNB. S/P wrist surgery RIGHT Family History Mother Family history of diabetes mellitus Cancer Father Family history of diabetes mellitus Hx of CABG Hypertension Grandmother (Maternal) Family history of diabetes mellitus Denies family history of Ovarian cancer Prostate cancer Coronary heart disease Breast cancer Colorectal cancer Social History Smoking Status: Never smoker Second Hand Exposure: Yes (ON OCC A CHILD); Do You Dip or Chew Tobacco: No; Tobacco Cessation Education Requested by Patient: No Hx Alcohol Use: No Hx Substance Use: No Preferred Language: Czech Communication Ability: Effective Visual Impairment: No Limitations Hearing Ability: Normal [employer] Consultant Required: No Beliefs That Will Affect Care: None marital status: Current Living Situation: Spouse Current Living Situation Comment: 4 children current occupational status: retired 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 NAD. Cooperative. HEENT: Atraumatic, normocephalic. Vision/hearing intact Pulm: CTAB A&P. -wheezes, -rales, -rhonchi. Symmetrical chest rise. No increased work of breathing. No respiratory distress. Cardiac: RRR, -mrg. Radial pulses intact and symmetrical. Abdominal: Nontender, nondistended, soft. BS present. Back: Surgical site intact, C/D/I. MARILYN drain intact, recently emptied by nursing staff. Currently draining sanguinous/serosanguineous material Extremities: Sensation to soft touch intact in feet bilaterally without asymmetry. Cap refill brisk in feet bilaterally. Wiggles toes and ankle dorsiflexion/plantarflexion 5/5 bilaterally. Results & Data Results & Data ([facility]) Vital Signs (Past 12 Hours) Vital Signs Temp Pulse Pulse Resp BP Pulse Ox O2 Del Method 12/14/22 11:44 36.8 C 14 149/72 H 95 Nasal Cannula 12/14/22 11:20 65 12 139/68 97 Nasal Cannula 12/14/22 11:10 75 12 143/61 H 94 Nasal Cannula 12/14/22 11:00 36.4 C L 75 12 142/73 H 93 Room Air 12/14/22 10:50 76 19 155/94 H 94 Oxymask 12/14/22 10:40 69 12 156/70 H 100 Oxymask 12/14/22 10:30 76 18 150/86 H 100 Oxymask 12/14/22 10:20 36.8 C 69 12 157/72 H 100 Oxymask 12/14/22 06:48 36.7 C 76 16 162/76 H 96 Room Air O2 Flow Rate 12/14/22 11:44 2 12/14/22 11:20 2 12/14/22 11:10 2 12/14/22 11:00 12/14/22 10:50 4 12/14/22 10:40 4 12/14/22 10:30 6 12/14/22 10:20 6 12/14/22 06:48 PG Care Time/CCT Total # of Minutes Spent Total Time Spent with Patient: Total time spent is greater than 50% in coordination of care (as documented) at patient's floor/unit and/or counseling patient: Coding Level of Care Code INP/OBS CONSULT LVL 4, 60 MIN Diagnoses Neurogenic claudication due to lumbar spinal stenosis M48.062 Hypothyroidism E03.9 Diabetes type 2, uncontrolled E11.65 HTN (hypertension), benign I10 GERD (gastroesophageal reflux disease) K21.9 Carotid artery stenosis, asymptomatic I65.29 Depression F32.9 CKD (chronic kidney disease) N18.9
[2022-12-14] MEDS ORDERED: PANTOprazole 40 MG TAB PO PRN (12:20)
--- NOTE | 2022-12-14 12:54 | Fluoroscopy Report ---
INTRAOPERATIVE RADIOGRAPHS CLINICAL HISTORY: Lumbar spinal fusion surgery. Fluoro time: 19 seconds. Exposure: 15.90 mGy FINDINGS: 3 spot fluoroscopic views of the lumbar spine are presented. There has been discectomy at L 2-L3 and L3-L4 with laminectomy and posterior fusion at L2-L5. Interpedicular screws are present at a ll levels. The orthopedic hardware appears intact. A stimulator device projects over the left lower q uadrant. IMPRESSION: Intraoperative images from lumbar spinal fusion surgery as above. Electronically signed by: Yuri Navarro M.D. 12/14/2022 12:52 PM
[2022-12-14] MEDS ORDERED: GLUCOSE 10 TAB/TUBE PO PRN ×2 (13:15→18:42)
[2022-12-14] MEDS ORDERED: INSULIN ASPART 100 UNITS/ML VIAL SC PRN (13:15)
[2022-12-14] MEDS ORDERED: DEXTROSE 50% 50 ML SYRINGE IV PRN ×2 (13:15→18:42)
[2022-12-14] MEDS ORDERED: GLUCOSE 40% GEL 15 GM TUBE PO PRN ×2 (13:15→18:42)
[2022-12-14] MEDS ORDERED: GLUCAGON FOR INJ 1 MG VIAL IM PRN (13:15)
[2022-12-14] MEDS: GABAPENTIN 300 MG CAP PO SCH ×2 (14:42→20:07)
[2022-12-14] MEDS: INSULIN, Rapid-Acting PUMP SCH ×2 (15:39→20:24)
[2022-12-14] MEDS: ceFAZolin 2000MG 2,000 MG/15 ML SYR IV SCH ×2 (15:54→23:45)
[2022-12-14] MEDS ORDERED: GLUCAGON FOR INJ 1 MG VIAL SQ PRN (18:42)
[2022-12-14] MEDS ORDERED: CARBOHYDRATES FOR HYPOGLYCEMIA PO PRN (18:42)
[2022-12-14] MEDS ORDERED: LANTUS PER UNIT CHARGE SQ ONE (19:03)
[2022-12-14] MEDS: INSULIN ASPART PER UNIT SC SCH ×3 (20:01→23:43)
[2022-12-14] MEDS: LABETALOL HCL 200 MG TAB PO SCH (20:06)
[2022-12-14] MEDS: DOCUSATE SODIUM/SENNA 50/8.6MG TAB PO SCH (20:06)
[2022-12-14] MEDS: ATORVASTATIN 40 MG TAB PO SCH (20:06)
[2022-12-15] MEDS: INSULIN ASPART PER UNIT SC SCH ×2 (03:48→09:03)
[2022-12-15] MEDS: POLYETHYLENE (MIRALAX) 17 GM PACK PO SCH ×3 (05:53→18:04)
[2022-12-15] MEDS: ACETAMINOPHEN 500 MG TAB PO PRN (05:58)
[2022-12-15] MEDS: traMADol HCL 50 MG TABLET PO PRN ×3 (07:52→20:27)
[2022-12-15] MEDS: PANTOprazole 40 MG TAB PO SCH (08:15)
[2022-12-15] MEDS: MULTIVITAMIN TAB PO SCH (08:15)
[2022-12-15] MEDS: DULoxetine HCL 60 MG CAP PO SCH (08:16)
[2022-12-15] MEDS: LOSARTAN POTASSIUM 50 MG TAB PO SCH (08:16)
[2022-12-15] MEDS: LEVOTHYROXINE SODIUM 50 MCG TABLET PO SCH (08:16)
[2022-12-15] MEDS: amLODIPine BESYLATE 5 MG TAB PO SCH (08:16)
[2022-12-15] MEDS: hydroCHLOROthiazide 25 MG TAB PO SCH (08:17)
[2022-12-15] MEDS: LABETALOL HCL 200 MG TAB PO SCH ×2 (08:17→20:29)
[2022-12-15] MEDS: GABAPENTIN 300 MG CAP PO SCH ×3 (08:17→20:29)
[2022-12-15 08:20] LABS: Basophils # (auto) 0.01 K/uL (0-0.2); Basophils % (auto) 0.1 %; Eosinophils # (auto) 0.04 K/uL (0-0.50); Eosinophils % (auto) 0.6 %; Hematocrit (blood only) 29.2 % (42.0-52.0); Hemoglobin 9.8 g/dl (14.0-18.0); Immature Granulocytes # (auto) 0.02 K/uL (0.01-0.20); Immature Granulocytes % (auto) 0.3 %; Lymphocytes # (auto) 1.34 K/uL (1.2-3.4); Lymphocytes % (auto) 19.1 %; Mean Corpuscular Hemoglobin 30.7 pg (25.0-34.0); Mean Corpuscular Hgb Conc 33.6 g/dL (32.0-36.0); Mean Corpuscular Volume 91.5 fL (80.0-100.0); Mean Platelet Volume 11.4 fL (9.4-12.4); Monocytes # (auto) 0.75 K/uL (0.11-0.59); Monocytes % (auto) 10.7 %; Neutrophils # (auto) 4.85 K/uL (1.40-6.50); Neutrophils % (auto) 69.2 %; Platelet Count 157 K/uL (130-400); RDW Standard Deviation 43.5 fL (36.4-46.3); Red Blood Count 3.19 M/uL (4.70-6.10); White Blood Count 7.01 K/ul (4.8-10.8)
[2022-12-15 08:40] LABS: BUN Creatinine Ratio 21.9 (10-20); Calcium 8.5 mg/dl (8.5-10.1); Est GFR (African American) 65.7 ml/min; Est GFR (Non-African American) 56.7 ml/min; Potassium 4.1 mmol/L (3.5-5.1)
[2022-12-15] MEDS ORDERED: NON-FORMULARY MEDICATION (Magnesium Gluconate 27 mg magnesium (500 mg) tablet) PO SCH (09:00)
[2022-12-15] MEDS ORDERED: NON-FORMULARY MEDICATION (Potassium Gluconate 595 mg (99 mg) tablet) PO SCH (09:00)
--- NOTE | 2022-12-15 09:08 | Hospitalist Progress Note ---
Date of Service December 15, 2022 Assessment & Plan (1) Neurogenic claudication due to lumbar spinal stenosis: Plan: Neurogenic claudication 2/2 spinal stenosis -- Failed outpatient therapy POD#1 s/p 12/14/22: #1 removal of posterior instrumentation L4-L5. #2 exploration of fusion L4-L5. #3 revision decompression with bilateral medial facetectomies and foraminotomies L1-L2, L2-L3 and L3-L4. #4 posterior spinal fusion L2-L3 L3- L4. #5 placement posterior instrumentation L2-L5. #6 interbody fusion L2-L3 L3-L4. #7 placement of Spira 12 x 26 mm cage at L2-L3 and 11 x 26 mm cage at L3-L4. #7 placement locally harvested morselized autograft in the posterior gutters. #8 placement of I factor model V toss interbody space and posterior lateral gutters. EBL 400cc. MARILYN output 500cc + 80cc Pre-op h/h 11.9/36.3 --> h/h 9.8/29.2 -- acute blood loss anemia from surgery as well as dilutional from IVF Pain control/bowel regimen per primary service passing gas, no BM yet. PT/OT per primary service Worked with therapy and reports doing well DVT proph-- TEDs/scds, chemical contraindicated in back surgery Patient anticipating discharge tomorrow if continue to do well (2) Diabetes type 2, uncontrolled: Plan: A1c 8.3% preoperatively, has insulin pump Apparently had pump malfunction post-op and pharmacy consulted Had BSGs in 300s Lantus provided 50u last evening w/ novolog w/ parameters this morning Patient states similar issues happened last back surgery w/ steroid use (no further steroids ordered) and bringing in his home pump/comfortable making his own adjustments Monitor reading w/ home pump, reach out to DM educator if any issues w/ new supplies (3) Hypothyroidism: Plan: Last TSH: 0.064 with normal free T4 Continue Synthroid 50 mcg daily (dose changed about month prior in note) Follows with Endocrinology, prior notes rec MRI of pituitary for eval hypopit (hypothyroidism presumed to be secondary per notes -- had aspiration, benign Nov 2020) Appears MRI pituitary completed August, no evidence for adenoma per read by Dr Alvarez (4) HTN (hypertension), benign: Plan: BP stable 145/67 Remains on amlodipine 10mg, labetalol 200mg BID Losartan resumed this morning, BP and Cr stable Monitor Dyslipidemia Continue statin (5) GERD (gastroesophageal reflux disease): Plan: on omeprazole 20mg prn at home placed on protonox 40mg daily for GI proph given steroid use, consider changing back to prn for tomorrow if no further issues since steroids stopped (6) Carotid artery stenosis, asymptomatic: Plan: Carotid stenosis -- on imaging 10/07/[address] Tjeeda Continue statin Recommend daily aspirin after 24 hours if okay per surgical team-- touched base w/ Dr Walton and he was ok w/ starting this today --> continue at d/c, will need to add to dc instructions and f/u PCP (7) Depression: Plan: on duloxetine 60mg daily ?if for mood or more for neuropathy sx will also check b12 given baseline neuropathy/DM and metformin use, prior level 200 this past winter (8) CKD (chronic kidney disease): Plan: CKD Baseline creatinine as outpatient is 1.25 Cr baseline Renal dose meds/avoid nephrotoxic agents when able Plan Thank you for allowing hospitalist service to participate in the care of Mr Jones. Will follow up on labs in AM and reach out to primary service if any issues/add aspirin to dc instructions Please call sooner for any questions/concerns. Admission and Anticipated Discharge Date Admission Date: December 14, 2022 Supervising Physician Co-Signing Physician Notes PA Supervision Note: I did not personally see or examine the patient today, but I verified all braswell points of BRANNON Mills's assessment and plan with the following exceptions/additions: None Subjective eval around lunch, sitting up in chair. pain controlled. now passing gas but no bm yet. cardenas removed this morning, has not voided yet -- no sensation (just removed) BSGs elevated last evening w/ steroids, pharmacy on consult and following. to bring in his insulin pump to reconnect today. He states similar elevations in past w/ prior back surgery and no issues/complications. seen by orthopedics, he is anticipating discharge tomorrow if things continue to do well. no fever/chills, chest pain, shortness of breath, abdominal pain, nausea or other issues at this time. Questions/concerns addressed. Review of Systems Review of Systems: All systems reviewed & are unremarkable except as noted in HPI & below Physical Exam Physical Exam: General: WD/WN male sitting up in recliner, NAD HEENT: head normocephalic, atraumatic, mmm, trachea midline, R carotid bruit Resp: CTAB, no w/c/r, on room air 96% CV: RRR, no significant m/r/g, no pitting edema/calf tenderness GI: +BS, slight distension, nontender, no guarding : NO CARDENAS (removed this morning) MSK/Neuro: moves all extremities, strength equal b/l LE, pulses palpable dressing c/d/i, MARILYN scant drainage, NVI Psych: AOx3, pleasant and cooperative Results & Data Results & Data ([facility]) Vital Signs (Past 12 Hours) Vital Signs Temp Pulse Resp BP BP Pulse Ox O2 Del Method 12/15/22 07:40 36.6 C 76 14 146/62 H 97 Room Air 12/15/22 03:44 36.6 C 81 16 148/61 H 95 Room Air 12/14/22 22:35 36.4 C L 86 18 144/83 H 96 Room Air Laboratory Results 12/15/22 12/15/22 12/15/22 Range/Units 12:13 12:08 08:42 WBC (4.8-10.8) K/ul RBC (4.70-6.10) M/uL Hgb (14.0-18.0) g/dl Hct (42.0-52.0) % MCV (80.0-100.0) fL MCH (25.0-34.0) pg MCHC (32.0-36.0) g/dL RDW Std Deviation (36.4-46.3) fL RDW Coeff of Angie (11.5-14.5) % Plt Count (130-400) K/uL MPV (9.4-12.4) fL Immature Gran % (Auto) % Neut % (Auto) % Lymph % (Auto) % [place] % (Auto) % Eos % (Auto) % Baso % (Auto) % Neut # (Auto) (1.40-6.50) K/uL Lymph # (Auto) (1.2-3.4) K/uL [place] # (Auto) (0.11-0.59) K/uL Eos # (Auto) (0-0.50) K/uL Baso # (Auto) (0-0.2) K/uL Immature Gran # (Auto) (0.01-0.20) K/uL Sodium (136-145) mmol/L Potassium (3.5-5.1) mmol/L Chloride (98-107) mmol/L Carbon Dioxide (21-32) mmol/L Anion Gap (3-11) BUN (6-23) mg/dl Creatinine (0.6-1.4) mg/dl Est Cr Clr Drug Dosing ml/min Est GFR ( Amer) ml/min Est GFR (Non-Af Amer) ml/min BUN/Creatinine Ratio (10-20) Glucose (70-99(Fasting)) mg/dl POC Glucose 364 H* 366 H* 254 H (70-99) mg/dl Calcium (8.5-10.1) mg/dl 12/15/22 12/15/22 12/15/22 Range/Units 07:31 07:31 03:36 WBC 7.01 (4.8-10.8) K/ul RBC 3.19 L (4.70-6.10) M/uL Hgb 9.8 L (14.0-18.0) g/dl Hct 29.2 L (42.0-52.0) % MCV 91.5 (80.0-100.0) fL MCH 30.7 (25.0-34.0) pg MCHC 33.6 (32.0-36.0) g/dL RDW Std Deviation 43.5 (36.4-46.3) fL RDW Coeff of Angie 13.0 (11.5-14.5) % Plt Count 157 (130-400) K/uL MPV 11.4 (9.4-12.4) fL Immature Gran % (Auto) 0.3 % Neut % (Auto) 69.2 % Lymph % (Auto) 19.1 % [place] % (Auto) 10.7 % Eos % (Auto) 0.6 % Baso % (Auto) 0.1 % Neut # (Auto) 4.85 (1.40-6.50) K/uL Lymph # (Auto) 1.34 (1.2-3.4) K/uL [place] # (Auto) 0.75 H (0.11-0.59) K/uL Eos # (Auto) 0.04 (0-0.50) K/uL Baso # (Auto) 0.01 (0-0.2) K/uL Immature Gran # (Auto) 0.02 (0.01-0.20) K/uL Sodium 138 (136-145) mmol/L Potassium 4.1 (3.5-5.1) mmol/L Chloride 105 (98-107) mmol/L Carbon Dioxide 29 (21-32) mmol/L Anion Gap 4 (3-11) BUN 28 H (6-23) mg/dl Creatinine 1.28 (0.6-1.4) mg/dl Est Cr Clr Drug Dosing 57.0 ml/min Est GFR ( Amer) 65.7 ml/min Est GFR (Non-Af Amer) 56.7 ml/min BUN/Creatinine Ratio 21.9 H (10-20) Glucose 245 H (70-99(Fasting)) mg/dl POC Glucose 254 H (70-99) mg/dl Calcium 8.5 (8.5-10.1) mg/dl 12/14/22 12/14/22 12/14/22 Range/Units 23:36 19:49 17:14 WBC (4.8-10.8) K/ul RBC (4.70-6.10) M/uL Hgb (14.0-18.0) g/dl Hct (42.0-52.0) % MCV (80.0-100.0) fL MCH (25.0-34.0) pg MCHC (32.0-36.0) g/dL RDW Std Deviation (36.4-46.3) fL RDW Coeff of Angie (11.5-14.5) % Plt Count (130-400) K/uL MPV (9.4-12.4) fL Immature Gran % (Auto) % Neut % (Auto) % Lymph % (Auto) % [place] % (Auto) % Eos % (Auto) % Baso % (Auto) % Neut # (Auto) (1.40-6.50) K/uL Lymph # (Auto) (1.2-3.4) K/uL [place] # (Auto) (0.11-0.59) K/uL Eos # (Auto) (0-0.50) K/uL Baso # (Auto) (0-0.2) K/uL Immature Gran # (Auto) (0.01-0.20) K/uL Sodium (136-145) mmol/L Potassium (3.5-5.1) mmol/L Chloride (98-107) mmol/L Carbon Dioxide (21-32) mmol/L Anion Gap (3-11) BUN (6-23) mg/dl Creatinine (0.6-1.4) mg/dl Est Cr Clr Drug Dosing ml/min Est GFR ( Amer) ml/min Est GFR (Non-Af Amer) ml/min BUN/Creatinine Ratio (10-20) Glucose (70-99(Fasting)) mg/dl POC Glucose 312 H* 334 H* 293 H (70-99) mg/dl Calcium (8.5-10.1) mg/dl Diagnostic Findings Lumbar Spine X-Ray 12/14/22 07:45 INTRAOPERATIVE RADIOGRAPHS CLINICAL HISTORY: Lumbar spinal fusion surgery. Fluoro time: 19 seconds. Exposure: 15.90 mGy FINDINGS: 3 spot fluoroscopic views of the lumbar spine are presented. There has been discectomy at L2-L3 and L3-L4 with laminectomy and posterior fusion at L2- L5. Interpedicular screws are present at all levels. The orthopedic hardware appears intact. A stimulator device projects over the left lower quadrant. IMPRESSION: Intraoperative images from lumbar spinal fusion surgery as above. Electronically signed by: Yuri Navarro M.D. 12/14/2022 12:52 PM PG Care Time/CCT Total # of Minutes Spent Total Time Spent with Patient: Total time spent is greater than 50% in coordination of care (as documented) at patient's floor/unit and/or counseling patient: Coding Level of Care Code 91852 SUB INP/OBS CARE 3/50MIN Diagnoses Neurogenic claudication due to lumbar spinal stenosis M48.062 Diabetes type 2, uncontrolled E11.65 Hypothyroidism E03.9 HTN (hypertension), benign I10 GERD (gastroesophageal reflux disease) K21.9 Carotid artery stenosis, asymptomatic I65.29 Depression F32.9 CKD (chronic kidney disease) N18.9
[2022-12-15] MEDS ORDERED: LANTUS PER UNIT CHARGE SQ STA (09:09)
--- NOTE | 2022-12-15 10:50 | Pharmacy Report ---
Pharmacy Glycemic Short Note 2 - Date of Service December 15, 2022 - Glycemic Short BSG Results (Last 24 hours): 12/14/22 12/14/22 12/14/22 12:17 17:14 19:49 Glucose POC Glucose 275 H 293 H 334 H* 12/14/22 12/15/22 12/15/22 23:36 03:36 07:31 Glucose 245 H POC Glucose 312 H* 254 H 12/15/22 08:42 Glucose POC Glucose 254 H OUTPATIENT ANTIDIABETIC REGIMEN: * Novolog insulin pump: - Basal rate: 2.5 units/hr - 80-140 goal range, CF: 34, CR 1:6 - TDD ~ 91 units/day * Metformin 1 gm PO BID * HbA1c on 11/30/22: 8.3% ASSESSMENT: * 67 y/o M admitted for spinal surgery yesterday with history of Type 2 diabetes managed at home on Novolog insulin pump and oral Metformin. * Insulin pump was removed for surgery yesterday, then resumed. However, pump malfunctioned and pharmacy consulted for glycemic control. * Basal Lantus 50 units was given last night and Novolog was ordered with parameters the same home insulin pump. * Patient did receive IV Dexamethasone (one dose) during surgery and BSGs trended up above 300 mg/dl late yesterday. IV steroid is not continued post op. * Fasting BSG was 254 mg/dl this morning. Lantus 20 units given this morning and Novolog parameters tightened to stress of 2. * Patient's brought in new pump supplies today and pump was resumed around 1 pm. * Novolog orders from hospital placed on hold. * BSGs have trended down since pump resumed. PLAN FOR INPATIENT GLYCEMIC CONTROL: * Hold outpatient oral diabetes medications * Patient's own Novolog pump resumed at home settings. * Basal insulin * Lantus 50 units SQ last night; * Lantus 20 units SQ today AM * HELD SINCE PUMP RESUMED * Bolus insulin: ON HOLD SINCE PUMP RESUMED * NovoLog per scale ACHS or Q6hrs while NPO * Goal Range: Low 110 mg/dL - High 140 mg/dL * Correction Factor: 25 mg/dL/unit * Nutritional / Prandial insulin per carb ratio of 1 unit per 6 grams CHO consumed
[2022-12-15] MEDS: ASPIRIN 81 MG ECTAB PO SCH (12:00)
--- NOTE | 2022-12-15 12:11 | Orthopedic Progress Note ---
Date of Service December 15, 2022 Assessment & Plan (1) Neurogenic claudication due to lumbar spinal stenosis: Plan: At this time continue physical therapy monitor his MARILYN output anticipate discharge home in the next day or so. Admission and Anticipated Discharge Date Admission Date: December 14, 2022 Subjective Patient's back pain is controlled leg pain markedly improved Physical Exam Physical Exam: Patient is sitting up at the bedside after finishing physical therapy. He has good strength testing. Appears comfortable. Results & Data ([facility]) Vital Signs (Past 12 Hours) Vital Signs Temp Pulse Resp BP BP Pulse Ox O2 Del Method 12/15/22 12:05 36.8 C 79 16 145/67 H 96 Room Air 12/15/22 07:40 36.6 C 76 14 146/62 H 97 Room Air 12/15/22 03:44 36.6 C 81 16 148/61 H 95 Room Air
[2022-12-15] MEDS ORDERED: INSULIN ASPART 100 UNITS/ML VIAL SC PRN (12:30)
[2022-12-15] MEDS: INSULIN, Rapid-Acting PUMP SCH ×3 (13:21→21:00)
[2022-12-15] MEDS: DOCUSATE SODIUM/SENNA 50/8.6MG TAB PO SCH (20:28)
[2022-12-15] MEDS: ATORVASTATIN 40 MG TAB PO SCH (20:28)
[2022-12-15] MEDS: CARBOHYDRATES FOR HYPOGLYCEMIA PO PRN (23:21)
[2022-12-16] MEDS: POLYETHYLENE (MIRALAX) 17 GM PACK PO SCH ×5 (00:01→22:55)
[2022-12-16] MEDS: traMADol HCL 50 MG TABLET PO PRN ×3 (05:28→20:54)
[2022-12-16] MEDS: ACETAMINOPHEN 500 MG TAB PO PRN (08:01)
[2022-12-16 08:26] LABS: Hematocrit (blood only) 29.2 % (42.0-52.0); Hemoglobin 9.6 g/dl (14.0-18.0); Mean Corpuscular Hemoglobin 30.5 pg (25.0-34.0); Mean Corpuscular Hgb Conc 32.9 g/dL (32.0-36.0); Mean Corpuscular Volume 92.7 fL (80.0-100.0); Mean Platelet Volume 11.5 fL (9.4-12.4); Platelet Count 153 K/uL (130-400); RDW Coefficient of Variation 13.3 % (11.5-14.5); RDW Standard Deviation 44.6 fL (36.4-46.3); Red Blood Count 3.15 M/uL (4.70-6.10); White Blood Count 5.76 K/ul (4.8-10.8)
[2022-12-16 08:30] LABS: BUN Creatinine Ratio 19.5 (10-20); Calcium 8.5 mg/dl (8.5-10.1); Creatinine Clr Calc Pharmacy 59.3 ml/min; Est GFR (Non-African American) 59.5 ml/min; Magnesium 2.1 mg/dl (1.7-2.4); Potassium 4.1 mmol/L (3.5-5.1)
--- NOTE | 2022-12-16 08:36 | Hospitalist Progress Note ---
Date of Service December 16, 2022 Assessment & Plan (1) Neurogenic claudication due to lumbar spinal stenosis: Plan: Neurogenic claudication 2/2 spinal stenosis -- Failed outpatient therapy s/p lumbar discectomy and fusion on 12/14/22: EBL 400cc. MARILYN output 500cc + 290cc Pre-op h/h 11.9/36.3 --> h/h 9.8/29.2 --> 9.6 -- acute blood loss anemia from surgery as well as dilutional from IVF Pain control/bowel regimen per primary service--> passing gas, no BM yet. Con tinue bowel regimen PT/OT consulted DVT proph-- TEDs/scds, chemical contraindicated in back surgery Anticipating discharge tomorrow if bowels moving and MARILYN output decreased per patient discussion with orthopedic surgery this morning (2) Diabetes type 2, uncontrolled: Plan: A1c 8.3% preoperatively, has insulin pump Apparently had pump malfunction post-op and pharmacy consulted Had BSGs in 300s 12/14 Lantus provided 50u 12/14 evening w/ novolog w/ parameters AM 12/15 Switched back to home insulin pump -- BSGs low overnight likely from lantus given yesterday per discussion with pharmacy BSGs improved and stable since back on his pump Continue to monitor/consult DM educator if any issues w/ his home pump (3) Hypothyroidism: Plan: Last TSH: 0.064 with normal free T4 Continue Synthroid 50 mcg daily (dose changed about month prior in note) Follows with Endocrinology, prior notes rec MRI of pituitary for eval hypopit (hypothyroidism presumed to be secondary per notes -- had aspiration, benign Nov 2020) Appears MRI pituitary completed August, no evidence for adenoma per read by Dr Alvarez Rec f/u endocrinology/MRI as ordered by such in follow up (4) HTN (hypertension), benign: Plan: BP stable 110/55 Remains on amlodipine 10mg, labetalol 200mg BID, losartan 100mg daily No lightheaded/dizziness reported Dyslipidemia Continue statin (5) GERD (gastroesophageal reflux disease): Plan: on omeprazole 20mg prn at home placed on protonox 40mg daily for GI proph given steroid use, consider changing back to prn for tomorrow if no further issues since steroids stopped but will continue for now (6) Carotid artery stenosis, asymptomatic: Plan: Carotid stenosis -- on imaging 10/07/[address] Tejeda Continue statin Recommend daily aspirin after 24 hours if okay per surgical team-- touched base w/ Dr Walton 12/15 and he was ok w/ starting 12/15, ordered and rx sent on d/c instructions and discussed with patient (7) Depression: Plan: on duloxetine 60mg daily ?if for mood or more for neuropathy sx will also check b12 given baseline neuropathy/DM and metformin use, prior level 200 this past winter B12 reviewed, LOW NORMAL at 252-- IM x 1 today, continue PO supplementation daily and rx on instructions placed and discussed with patient (8) CKD (chronic kidney disease): Plan: CKD Baseline creatinine as outpatient is 1.25 Cr baseline Renal dose meds/avoid nephrotoxic agents when able (9) B12 deficiency: Plan: checked given neuropathy sx, low normal and IM replacement ordered x 1 for today and continue 1000mcg daily recommended at d/c Plan Thank you for allowing hospitalist service to participate in the care of Mr Jones. Patient planning for d/c home tomorrow if MARILYN output decreased and moving his bowels. Hospitalist service will sign off at this time. Please call with any questions/concerns. Admission and Anticipated Discharge Date Admission Date: December 14, 2022 Supervising Physician Co-Signing Physician Notes PA Supervision Note: I did not personally see or examine the patient today, but I verified all braswell points of BRANNON Mills's assessment and plan with the following exceptions/additions: None Subjective Eval this morning, doing well but feeling fatigued/tired. Pain controlled with ordered medications. Seen by Dr Walton and going to stay overnight to ensure decreased MARILYN output and bowels moving prior to discharge. BSGs dropped overnight from lantus yesterday, back on his own pump and BSGs most recently 119 this morning. Discussed low B12 and replacement, giving dose IM while inpatient. No fever/chills, chest pain, shortness of breath. Good appetite, continues to pass gas. No abdominal pain. No issues w/ voiding since cardenas removed. Questions/concerns addressed at this time. Physical Exam Physical Exam: General: WD/WN male sitting up in recliner, NAD, reporting fati tenisha HEENT: head normocephalic, atraumatic, mmm, trachea midline, R carotid bruit Resp: CTAB, no w/c/r, on room air 96% CV: RRR, no significant m/r/g, no pitting edema/calf tenderness GI: +BS, slight distension, nontender, no guarding : NO CARDENAS MSK/Neuro: moves all extremities, strength equal b/l LE, pulses palpable dressing c/d/i, MARILYN scant drainage, NVI Psych: AOx3, pleasant and cooperative Results & Data Results & Data ([facility]) Vital Signs (Past 12 Hours) Vital Signs Temp Pulse Resp BP BP Pulse Ox O2 Del Method 12/16/22 08:02 36.7 C 86 14 110/55 L 96 Room Air 12/15/22 21:34 37 C 82 18 162/76 H 94 Room Air Laboratory Results 12/16/22 12/16/22 12/16/22 Range/Units 08:15 07:41 07:41 WBC (4.8-10.8) K/ul RBC (4.70-6.10) M/uL Hgb (14.0-18.0) g/dl Hct (42.0-52.0) % MCV (80.0-100.0) fL MCH (25.0-34.0) pg MCHC (32.0-36.0) g/dL RDW Std Deviation (36.4-46.3) fL RDW Coeff of Angie (11.5-14.5) % Plt Count (130-400) K/uL MPV (9.4-12.4) fL Sodium 138 (136-145) mmol/L Potassium 4.1 (3.5-5.1) mmol/L Chloride 104 (98-107) mmol/L Carbon Dioxide 31 (21-32) mmol/L Anion Gap 3 (3-11) BUN 24 H (6-23) mg/dl Creatinine 1.23 (0.6-1.4) mg/dl Est Cr Clr Drug Dosing 59.3 ml/min Est GFR ( Amer) 69.0 ml/min Est GFR (Non-Af Amer) 59.5 ml/min BUN/Creatinine Ratio 19.5 (10-20) Glucose 129 H (70-99(Fasting)) mg/dl POC Glucose 119 H (70-99) mg/dl Calcium 8.5 (8.5-10.1) mg/dl Magnesium 2.1 (1.7-2.4) mg/dl Vitamin B12 Pending 12/16/22 12/16/22 12/15/22 Range/Units 07:41 00:02 23:34 WBC 5.76 (4.8-10.8) K/ul RBC 3.15 L (4.70-6.10) M/uL Hgb 9.6 L (14.0-18.0) g/dl Hct 29.2 L (42.0-52.0) % MCV 92.7 (80.0-100.0) fL MCH 30.5 (25.0-34.0) pg MCHC 32.9 (32.0-36.0) g/dL RDW Std Deviation 44.6 (36.4-46.3) fL RDW Coeff of Angie 13.3 (11.5-14.5) % Plt Count 153 (130-400) K/uL MPV 11.5 (9.4-12.4) fL Sodium (136-145) mmol/L Potassium (3.5-5.1) mmol/L Chloride (98-107) mmol/L Carbon Dioxide (21-32) mmol/L Anion Gap (3-11) BUN (6-23) mg/dl Creatinine (0.6-1.4) mg/dl Est Cr Clr Drug Dosing ml/min Est GFR ( Amer) ml/min Est GFR (Non-Af Amer) ml/min BUN/Creatinine Ratio (10-20) Glucose (70-99(Fasting)) mg/dl POC Glucose 103 H 65 L* (70-99) mg/dl Calcium (8.5-10.1) mg/dl Magnesium (1.7-2.4) mg/dl Vitamin B12 12/15/22 12/15/22 12/15/22 Range/Units 23:15 17:08 14:55 WBC (4.8-10.8) K/ul RBC (4.70-6.10) M/uL Hgb (14.0-18.0) g/dl Hct (42.0-52.0) % MCV (80.0-100.0) fL MCH (25.0-34.0) pg MCHC (32.0-36.0) g/dL RDW Std Deviation (36.4-46.3) fL RDW Coeff of Angie (11.5-14.5) % Plt Count (130-400) K/uL MPV (9.4-12.4) fL Sodium (136-145) mmol/L Potassium (3.5-5.1) mmol/L Chloride (98-107) mmol/L Carbon Dioxide (21-32) mmol/L Anion Gap (3-11) BUN (6-23) mg/dl Creatinine (0.6-1.4) mg/dl Est Cr Clr Drug Dosing ml/min Est GFR ( Amer) ml/min Est GFR (Non-Af Amer) ml/min BUN/Creatinine Ratio (10-20) Glucose (70-99(Fasting)) mg/dl POC Glucose 69 L* 112 H 171 H (70-99) mg/dl Calcium (8.5-10.1) mg/dl Magnesium (1.7-2.4) mg/dl Vitamin B12 12/15/22 12/15/22 12/15/22 Range/Units 12:13 12:08 08:42 WBC (4.8-10.8) K/ul RBC (4.70-6.10) M/uL Hgb (14.0-18.0) g/dl Hct (42.0-52.0) % MCV (80.0-100.0) fL MCH (25.0-34.0) pg MCHC (32.0-36.0) g/dL RDW Std Deviation (36.4-46.3) fL RDW Coeff of Angie (11.5-14.5) % Plt Count (130-400) K/uL MPV (9.4-12.4) fL Sodium (136-145) mmol/L Potassium (3.5-5.1) mmol/L Chloride (98-107) mmol/L Carbon Dioxide (21-32) mmol/L Anion Gap (3-11) BUN (6-23) mg/dl Creatinine (0.6-1.4) mg/dl Est Cr Clr Drug Dosing ml/min Est GFR ( Amer) ml/min Est GFR (Non-Af Amer) ml/min BUN/Creatinine Ratio (10-20) Glucose (70-99(Fasting)) mg/dl POC Glucose 364 H* 366 H* 254 H (70-99) mg/dl Calcium (8.5-10.1) mg/dl Magnesium (1.7-2.4) mg/dl Vitamin B12 12/15/22 Range/Units 07:31 WBC (4.8-10.8) K/ul RBC (4.70-6.10) M/uL Hgb (14.0-18.0) g/dl Hct (42.0-52.0) % MCV (80.0-100.0) fL MCH (25.0-34.0) pg MCHC (32.0-36.0) g/dL RDW Std Deviation (36.4-46.3) fL RDW Coeff of Angie (11.5-14.5) % Plt Count (130-400) K/uL MPV (9.4-12.4) fL Sodium 138 (136-145) mmol/L Potassium 4.1 (3.5-5.1) mmol/L Chloride 105 (98-107) mmol/L Carbon Dioxide 29 (21-32) mmol/L Anion Gap 4 (3-11) BUN 28 H (6-23) mg/dl Creatinine 1.28 (0.6-1.4) mg/dl Est Cr Clr Drug Dosing 57.0 ml/min Est GFR ( Amer) 65.7 ml/min Est GFR (Non-Af Amer) 56.7 ml/min BUN/Creatinine Ratio 21.9 H (10-20) Glucose 245 H (70-99(Fasting)) mg/dl POC Glucose (70-99) mg/dl Calcium 8.5 (8.5-10.1) mg/dl Magnesium (1.7-2.4) mg/dl Vitamin B12 PG Care Time/CCT Total # of Minutes Spent Total Time Spent with Patient: Total time spent is greater than 50% in coordination of care (as documented) at patient's floor/unit and/or counseling patient: Coding Level of Care Code 83022 SUB INP/OBS CARE 2/35MIN Diagnoses Neurogenic claudication due to lumbar spinal stenosis M48.062 Diabetes type 2, uncontrolled E11.65 Hypothyroidism E03.9 HTN (hypertension), benign I10 GERD (gastroesophageal reflux disease) K21.9 Carotid artery stenosis, asymptomatic I65.29 Depression F32.9 CKD (chronic kidney disease) N18.9 B12 deficiency E53.8
[2022-12-16] MEDS: INSULIN, Rapid-Acting PUMP SCH ×4 (09:00→20:57)
[2022-12-16] MEDS: ASPIRIN 81 MG ECTAB PO SCH (09:34)
[2022-12-16] MEDS: LOSARTAN POTASSIUM 50 MG TAB PO SCH (09:34)
[2022-12-16] MEDS: PANTOprazole 40 MG TAB PO SCH (09:34)
[2022-12-16] MEDS: LABETALOL HCL 200 MG TAB PO SCH ×2 (09:34→20:54)
[2022-12-16] MEDS: hydroCHLOROthiazide 25 MG TAB PO SCH (09:34)
[2022-12-16] MEDS: MULTIVITAMIN TAB PO SCH (09:34)
[2022-12-16] MEDS: GABAPENTIN 300 MG CAP PO SCH ×3 (09:35→20:55)
[2022-12-16] MEDS: LEVOTHYROXINE SODIUM 50 MCG TABLET PO SCH (09:35)
[2022-12-16] MEDS: amLODIPine BESYLATE 5 MG TAB PO SCH (09:35)
[2022-12-16] MEDS: DULoxetine HCL 60 MG CAP PO SCH (09:35)
[2022-12-16] MEDS ORDERED: CYANOCOBALAMIN 1000 MCG/ML VIAL IM SCH (10:30)
--- NOTE | 2022-12-16 10:42 | Pharmacy Report ---
Pharmacy Glycemic Sign Off Nt - Date of Service December 16, 2022 - Assessment & Plan ASSESSMENT: * Pharmacy was consulted by Dr. Walton on 12/14/22 for glycemic control and to write orders per [facility] inpatient glycemic control protocol. * Patient's own insulin pump had malfunctioned post surgery on 12/14 and BSG were elevated. * Basal bolus insulin was started then. Patient's family brought in new insulin pump supplies on 12/15 morning after patient had received basal and bolus Novolog doses. * However, BSGs were still elevated above 300 mg/dl yesterday at lunch time. Therefore, patient's own insulin pump was resumed with help from CDE at that time. * Basal and bolus insulins were held and subsequently discontinued. * Patient has been managing his pump well and BSGs have trended down. * His BSG did go lower down to 65 mg/dl last night but this is because of the basal dose of insulin he received yesterday morning. This would have worn off by now. * Do not anticipate further changes in patient status that would quickly deteriorate glycemic control (i.e. patient to be NPO for upcoming procedure, steroids tapering, starting tube feedings, etc). PLAN FOR INPATIENT GLYCEMIC CONTROL: Continue on patient's own home insulin pump. * Pharmacy is signing off of glycemic consult and will no longer be making adjustments to inpatient regimen. Please feel free to re-consult if needed. Thank you.
--- NOTE | 2022-12-16 13:15 | Orthopedic Progress Note ---
Date of Service December 16, 2022 Assessment & Plan (1) Neurogenic claudication due to lumbar spinal stenosis: Plan: At this time we will continue physical therapy monitor his MARILYN output anticipate discharge home tomorrow. Admission and Anticipated Discharge Date Admission Date: December 14, 2022 Subjective Back pain controlled leg symptoms markedly improved Physical Exam Physical Exam: Patient is in the chair at the bedside. Skin strength testing. Appears comfortable. Results & Data ([facility]) Vital Signs (Past 12 Hours) Vital Signs Temp Pulse Pulse Resp BP Pulse Ox O2 Del Method 12/16/22 11:39 36.6 C 85 16 121/68 96 Room Air 12/16/22 08:02 36.7 C 86 14 110/55 L 96 Room Air
[2022-12-16] MEDS: CARBOHYDRATES FOR HYPOGLYCEMIA PO PRN ×2 (14:00→14:37)
[2022-12-16] MEDS: ATORVASTATIN 40 MG TAB PO SCH (20:55)
[2022-12-16] MEDS: DOCUSATE SODIUM/SENNA 50/8.6MG TAB PO SCH (20:57)
[2022-12-17] MEDS: traMADol HCL 50 MG TABLET PO PRN ×3 (00:52→11:38)
[2022-12-17] MEDS: POLYETHYLENE (MIRALAX) 17 GM PACK PO SCH (06:06)
[2022-12-17] MEDS: LEVOTHYROXINE SODIUM 50 MCG TABLET PO SCH (07:42)
--- NOTE | 2022-12-17 08:31 | Hospitalist Progress Note ---
Date of Service December 17, 2022 Assessment & Plan (1) Neurogenic claudication due to lumbar spinal stenosis: Plan: Neurogenic claudication 2/2 spinal stenosis -- Failed outpatient therapy s/p lumbar discectomy and fusion on 12/14/22: EBL 400cc. MARILYN output 500cc + 290cc Pre-op h/h 11.9/36.3 --> 9.8 --> improved to 10 on repeat -- acute blood loss anemia from surgery as well as dilutional from IVF Pain control/bowel regimen per primary service--> +BM overnight PT/OT consulted DVT proph-- TEDs/scds, chemical contraindicated in back surgery Anticipating discharge later today and discussed to push oral fluids for mild dehydration on exam (reports hates water, loves tea -- discussed to avoid diuretics as such to worsen hydration) (2) Diabetes type 2, uncontrolled: Plan: A1c 8.3% preoperatively, has insulin pump Apparently had pump malfunction post-op and pharmacy consulted Had BSGs in 300s 12/14 Lantus provided 50u 12/14 evening w/ novolog w/ parameters AM 12/15 Switched back to home insulin pump and BSGs dropped likely from lantus day prior BSGs improved and remain stable lows in evening -- managing own pump, no further issues DM educator also had been following per prior discussions (3) Hypothyroidism: Plan: Last TSH: 0.064 with normal free T4 Continue Synthroid 50 mcg daily (dose changed about month prior in note) Follows with Endocrinology, prior notes rec MRI of pituitary for eval hypopit (hypothyroidism presumed to be secondary per notes -- had aspiration, benign Nov 2020) Appears MRI pituitary completed August, no evidence for adenoma per read by Dr Alvarez Rec f/u endocrinology in follow up (4) HTN (hypertension), benign: Plan: BP stable 126/68 Remains on amlodipine 10mg, labetalol 200mg BID, losartan 100mg daily, HCTZ 25mg daily No lightheaded/dizziness reported Dyslipidemia Continue statin (5) GERD (gastroesophageal reflux disease): Plan: on omeprazole 20mg prn at home placed on protonox 40mg daily for GI proph given steroid use continue home meds at d/c (6) Carotid artery stenosis, asymptomatic: Plan: Carotid stenosis -- on imaging 10/07/[address] Tejeda Continue statin Recommend daily aspirin after 24 hours if okay per surgical team-- touched base w/ Dr Walton 12/15 and he was ok w/ starting 12/15, ordered and rx sent on d/c instructions and discussed with patient (7) Depression: Plan: on duloxetine 60mg daily ?if for mood or more for neuropathy sx will also check b12 given baseline neuropathy/DM and metformin use, prior level 200 this past winter B12 reviewed, LOW NORMAL at 252-- IM x 1, continue PO supplementation daily and rx on instructions placed and discussed with patient (8) CKD (chronic kidney disease): Plan: CKD Baseline creatinine as outpatient is 1.39 To push oral fluids as already got AM HCTZ/losartan. No need for IVF and can tolerate PO w/o issue Renal dose meds/avoid nephrotoxic agents when able Would rec f/u outpatient if his CrCl low (had been >50 during inpatient stay) -- but, if drops low would rec adjustments to his gabapentin (currently at max dose for CrCl 50-70 at 1600mg/daily) (9) B12 deficiency: Plan: checked given neuropathy sx, low normal and IM replacement ordered x 1 for today and continue 1000mcg daily recommended at d/c Plan Thank you for allowing hospitalist service to participate in the care of Mr Jones. Hospitalist service will sign off at this time. Please call with any questions/concerns Admission and Anticipated Discharge Date Admission Date: December 14, 2022 Supervising Physician Co-Signing Physician Notes PA Supervision Note: I did not personally see or examine the patient today, but I verified all braswell points of BRANNON Mills's assessment and plan with the following exceptions/additions: None Subjective eval this morning, doing well. +BM overnight pain controlled, inquiring about MARILYN output, emptied last around 4am reported, currently w/ about 70-80cc serosanguineous output- contacted Dr Walton and ok for drain removal and d/c today. He has not been pushing much fluid and discussed to finish current pitcher/refill and encouraged PO intake at d/c given slight bump in Cr. No fever/chills, chest pain,shortness of breath, abdominal pain, nausea, vomiting or dysuria. BSGs controlled. Planning for d/c once drain removed. Questions/concerns addressed at this time. Physical Exam Physical Exam: General: WD/WN male sitting up in recliner, at bedside, NAD HEENT: head normocephalic, atraumatic, mm slightly dry, trachea midline, R carotid bruit Resp: CTAB, no w/c/r, on room air 95% CV: RRR, no significant m/r/g, no pitting edema/calf tenderness GI: +BS, soft/NT : NO CARDENAS MSK/Neuro: moves all extremities, strength equal b/l LE, pulses palpable dressing c/d/i, MARILYN ~70cc serosanguineous drainage, NVI Psych: AOx3, pleasant and cooperative Results & Data Results & Data ([facility]) Vital Signs (Past 12 Hours) Vital Signs Temp Pulse Pulse Resp BP Pulse Ox O2 Del Method 12/17/22 07:24 36.8 C 83 16 128/68 95 Room Air 12/16/22 20:40 37.3 C 92 H 18 162/67 H 96 Room Air Laboratory Results 12/17/22 12/17/22 12/17/22 Range/Units 08:56 08:56 07:45 WBC 6.51 (4.8-10.8) K/ul RBC 3.27 L (4.70-6.10) M/uL Hgb 10.0 L (14.0-18.0) g/dl Hct 30.2 L (42.0-52.0) % MCV 92.4 (80.0-100.0) fL MCH 30.6 (25.0-34.0) pg MCHC 33.1 (32.0-36.0) g/dL RDW Std Deviation 44.4 (36.4-46.3) fL RDW Coeff of Angie 13.2 (11.5-14.5) % Plt Count 185 (130-400) K/uL MPV 11.5 (9.4-12.4) fL Sodium 137 (136-145) mmol/L Potassium 4.3 (3.5-5.1) mmol/L Chloride 101 (98-107) mmol/L Carbon Dioxide 30 (21-32) mmol/L Anion Gap 6 (3-11) BUN 30 H (6-23) mg/dl Creatinine 1.39 (0.6-1.4) mg/dl Est Cr Clr Drug Dosing 52.5 ml/min Est GFR ( Amer) 59.5 ml/min Est GFR (Non-Af Amer) 51.3 ml/min BUN/Creatinine Ratio 21.6 H (10-20) Glucose 102 H (70-99(Fasting)) mg/dl POC Glucose 99 (70-99) mg/dl Calcium 8.7 (8.5-10.1) mg/dl Crossmatch 12/16/22 12/16/22 12/16/22 Range/Units 20:41 17:05 15:25 WBC (4.8-10.8) K/ul RBC (4.70-6.10) M/uL Hgb (14.0-18.0) g/dl Hct (42.0-52.0) % MCV (80.0-100.0) fL MCH (25.0-34.0) pg MCHC (32.0-36.0) g/dL RDW Std Deviation (36.4-46.3) fL RDW Coeff of Angie (11.5-14.5) % Plt Count (130-400) K/uL MPV (9.4-12.4) fL Sodium (136-145) mmol/L Potassium (3.5-5.1) mmol/L Chloride (98-107) mmol/L Carbon Dioxide (21-32) mmol/L Anion Gap (3-11) BUN (6-23) mg/dl Creatinine (0.6-1.4) mg/dl Est Cr Clr Drug Dosing ml/min Est GFR ( Amer) ml/min Est GFR (Non-Af Amer) ml/min BUN/Creatinine Ratio (10-20) Glucose (70-99(Fasting)) mg/dl POC Glucose 130 H 168 H 100 H (70-99) mg/dl Calcium (8.5-10.1) mg/dl Crossmatch 12/16/22 12/16/22 12/16/22 Range/Units 14:58 14:36 14:35 WBC (4.8-10.8) K/ul RBC (4.70-6.10) M/uL Hgb (14.0-18.0) g/dl Hct (42.0-52.0) % MCV (80.0-100.0) fL MCH (25.0-34.0) pg MCHC (32.0-36.0) g/dL RDW Std Deviation (36.4-46.3) fL RDW Coeff of Angie (11.5-14.5) % Plt Count (130-400) K/uL MPV (9.4-12.4) fL Sodium (136-145) mmol/L Potassium (3.5-5.1) mmol/L Chloride (98-107) mmol/L Carbon Dioxide (21-32) mmol/L Anion Gap (3-11) BUN (6-23) mg/dl Creatinine (0.6-1.4) mg/dl Est Cr Clr Drug Dosing ml/min Est GFR ( Amer) ml/min Est GFR (Non-Af Amer) ml/min BUN/Creatinine Ratio (10-20) Glucose (70-99(Fasting)) mg/dl POC Glucose 65 L* 63 L* 64 L* (70-99) mg/dl Calcium (8.5-10.1) mg/dl Crossmatch 12/14/22 Range/Units 07:02 WBC (4.8-10.8) K/ul RBC (4.70-6.10) M/uL Hgb (14.0-18.0) g/dl Hct (42.0-52.0) % MCV (80.0-100.0) fL MCH (25.0-34.0) pg MCHC (32.0-36.0) g/dL RDW Std Deviation (36.4-46.3) fL RDW Coeff of Angie (11.5-14.5) % Plt Count (130-400) K/uL MPV (9.4-12.4) fL Sodium (136-145) mmol/L Potassium (3.5-5.1) mmol/L Chloride (98-107) mmol/L Carbon Dioxide (21-32) mmol/L Anion Gap (3-11) BUN (6-23) mg/dl Creatinine (0.6-1.4) mg/dl Est Cr Clr Drug Dosing ml/min Est GFR ( Amer) ml/min Est GFR (Non-Af Amer) ml/min BUN/Creatinine Ratio (10-20) Glucose (70-99(Fasting)) mg/dl POC Glucose (70-99) mg/dl Calcium (8.5-10.1) mg/dl Crossmatch See Detail PG Care Time/CCT Total # of Minutes Spent Total Time Spent with Patient: Total time spent is greater than 50% in coordination of care (as documented) at patient's floor/unit and/or counseling patient: Coding Level of Care Code 39387 SUB INP/OBS CARE 2/35MIN Diagnoses Neurogenic claudication due to lumbar spinal stenosis M48.062 Diabetes type 2, uncontrolled E11.65 Hypothyroidism E03.9 HTN (hypertension), benign I10 GERD (gastroesophageal reflux disease) K21.9 Carotid artery stenosis, asymptomatic I65.29 Depression F32.9 CKD (chronic kidney disease) N18.9 B12 deficiency E53.8
[2022-12-17] MEDS: LOSARTAN POTASSIUM 50 MG TAB PO SCH (09:03)
[2022-12-17] MEDS: hydroCHLOROthiazide 25 MG TAB PO SCH (09:03)
[2022-12-17] MEDS: DULoxetine HCL 60 MG CAP PO SCH (09:03)
[2022-12-17] MEDS: MULTIVITAMIN TAB PO SCH (09:03)
[2022-12-17] MEDS: LABETALOL HCL 200 MG TAB PO SCH (09:03)
[2022-12-17] MEDS: PANTOprazole 40 MG TAB PO SCH (09:03)
[2022-12-17] MEDS: ASPIRIN 81 MG ECTAB PO SCH (09:04)
[2022-12-17] MEDS: GABAPENTIN 300 MG CAP PO SCH (09:04)
[2022-12-17] MEDS: amLODIPine BESYLATE 5 MG TAB PO SCH (09:04)
[2022-12-17] MEDS: ACETAMINOPHEN 500 MG TAB PO PRN (09:08)
[2022-12-17] MEDS: INSULIN, Rapid-Acting PUMP SCH ×2 (09:12→13:16)
[2022-12-17 09:44] LABS: Hematocrit (blood only) 30.2 % (42.0-52.0); Mean Corpuscular Hemoglobin 30.6 pg (25.0-34.0); Mean Corpuscular Hgb Conc 33.1 g/dL (32.0-36.0); Mean Corpuscular Volume 92.4 fL (80.0-100.0); Mean Platelet Volume 11.5 fL (9.4-12.4); Platelet Count 185 K/uL (130-400); RDW Coefficient of Variation 13.2 % (11.5-14.5); RDW Standard Deviation 44.4 fL (36.4-46.3); Red Blood Count 3.27 M/uL (4.70-6.10); White Blood Count 6.51 K/ul (4.8-10.8)
[2022-12-17 09:52] LABS: BUN Creatinine Ratio 21.6 (10-20); Calcium 8.7 mg/dl (8.5-10.1); Creatinine Clr Calc Pharmacy 52.5 ml/min; Est GFR (African American) 59.5 ml/min; Est GFR (Non-African American) 51.3 ml/min; Potassium 4.3 mmol/L (3.5-5.1)
--- NOTE | 2022-12-17 10:48 | Discharge Summary ---
Date of Service December 17, 2022 Admission HPI Per Admitting Provider This is a 67-year-old male who presents chronic cyst Extensive course of nonoperative care is here for surgical invention. Principal Diagnosis Lumbar spinal stenosis with radiculopathy Discharge Data Allergies Allergy/AdvReac Type Severity Reaction Status Date / Time morphine Allergy Intermediate arms, Verified 12/14/22 06:41 hands swelling bupropion [From Wellbutrin] Allergy cough Verified 12/14/22 06:41 lisinopril AdvReac Mild cough Verified 12/14/22 06:41 Consultations 12/14/22 11:55 Consult Hospitalist Routine Procedures Performed Operation Date: 12/14/22 07:45 Actual Procedures p L2-L4 Decompression and Fusion, Spinal Cord Monitoring(Not Applicable) - Bashir Walton DO s L4-L5 Hardware Removal(Not Applicable) - Bashir Walton DO Ordered Studies 12/14/22 07:45 FL lumbar spine 2-3V Routine Hospital Course (1) Neurogenic claudication due to lumbar spinal stenosis: Patient with lumbar decompression fusion tolerated so was taken to orthopedic for postoperative. Postop day 1 is up and ambulating progress postop day #2 on postop day #3 pain was well controlled extra strength testing ambulating well MARILYN drain decreasing appropriately. Subsequent discharge home. Discharge orders instructions from the chart for further review. Total Time Total Time Spent Total Time Spent (In Minutes): 20 minutes Discharge Plan Discharge Items Patient Disposition: Home - Self-Care Reason For Visit: POST OP Discharge Diagnosis: Lumbar spinal stenosis with radiculopathy Activity: As commented below Non-emergency contact: Primary Care Provider Call non-emergency contact if: you have any medication questions Follow-up/Referrals: Timbo Tejeda MD [Primary Care Provider] - Diet: Regular Addtl Attending Provider Instructions: ACTIVITY RECOMMENDATIONS: SELF CARE INSTRUCTIONS AFTER THORACIC/LUMBAR FUSIONS 1. You may walk to your tolerance. It is good exercise for your legs and back. Expect some back and intermittent leg aches and pains. 2. You may perform "counter-top" level activities (make a sandwich, aurea with a project, etc.). 3. No bending or lifting of more than 10 pounds or back twisting of any nature (roll like a log when turning in bed). 4. You may ride in a car for 20-30 minutes at a time. No driving until after your first visit with your doctor. 5. Frequent changes of position and restricting sitting to 30 minutes at a time will help limit the amount of back spasms and stiffness you may experience. 6. You may discontinue the use of ambulatory aids (cane, crutches, etc.) once your strength and confidence allow. 7. You may brand marketing coordinator the shower and let water strike your incision when you arrive home at least once daily. Do not take a tub bath, sit in a hot tub or go into a swimming pool until after your first recheck in the office. SPECIAL CARE INSTRUCTIONS: VERY IMPORTANT TO READ AND REVIEW A. Your surgical incision has been closed with a cosmetic suture under the skin that will dissolve in about 6 weeks. In 14 days, you can use a pair of clean scissors and cut the suture that is left outside of the skin at the ends of your incision. 1. The small skin tapes can be removed 7 days after surgery if they have not fallen off by that point. 2. You may keep the wound open to air as much as possible to promote healing after post-op day number 5 unless told otherwise by your doctor. 3. If you think the wound looks like it is becoming infected (redness or worsening drainage) and/or you are experiencing fever, chill or worsening back pain and muscle spasms, contact the office so that we may evaluate you as soon as possible. B. Complications are uncommon, but please contact us if you have any signs or symptoms of: 1. wound infection (fever higher than 102.5 degrees F, redness, separation of wound, drainage, or increasing pain from the incision) 2. blood clots in legs (pain, swelling, redness and warmth in legs) 3. urinary tract infection (fever higher than 102.5 degrees F, burning upon urination or increased frequency of urination) 4. nerve problems (inability to walk on your toes or heels, numbness, loss of bowel or bladder control) 5. any other symptoms that concern you C. Please call the office at if you have any concerns or questions about your operation or recovery. D. No smoking! Smoking drastically decreases the chance of a solid fusion. E. Do not take any anti-inflammatory medications (Indocin, Advil, Motrin, Asp irin, Naprosyn, etc.) as these may inhibit the chance of a solid fusion. Tylenol is okay to take for pain. MANAGING PAIN AFTER SPINAL SURGERY 1. Narcotic medication is intended for short-term use and will be provided for surgical pain. Surgical pain usually lasts for a period of 4-6 weeks. Narcotic medication includes Percocet, Vicodin, Darvocet, Tylenol #3 or Lortab. 2. Longer-term pain is more appropriately treated with non-narcotic medication such as Tylenol ES. 3. Muscle spasm is not appropriately treated with narcotics. Muscle relaxers such as Soma, Flexeril or Skelaxin can be used along with Tylenol ES. 4. Remember that we all live with some "aches and pains". This is not unusual or uncommon after an injury or as we get older. a. Back pain is expected and may include muscle spasms for 4 to 6 weeks after surgery. The pain should gradually improve. If the pain worsens for no apparent reason, please contact the office. b. Intermittent leg pain may also be experienced and should not be concerned about unless it worsens for no apparent reason. If so, please contact the office. 5. We will provide appropriate medication within the normal guidelines of their prescribed use. We will also be very cautious and aware of potential abuse and extended duration of patients' medication needs. a. Pain medications are for your comfort and to assist with sleep and rest so that the tissue can heal. They are not provided in order to return to normal activity and should not be used through the day. To do so or worsening pain at night can result from ongoing tissue damage and development of tolerance to the prescribed medicine. 6. Please allow 2-3 days to process refills. Prescriptions will not be mailed but must be picked up at the office. FOLLOW UP VISIT: Keep your scheduled follow-up appointment. Any questions, please call the office at . Addtl Pile Trimmer Provider Instructions: Mr Weinberg, the hospitalist group has recommended you be on a baby aspirin given your underlying carotid stenosis (narrowing of carotid arteries) based on previous imaging obtained by Dr Tejeda. This will be a baby aspirin 81mg, and this was started while you were in the hospital and should be continued daily at discharge. Please follow up with Dr Tejeda for continued discussions or for any issues with bleeding. You have also been started on B12 1000mcg daily for low normal levels. This will help with energy, neuropathy, and anemia. Pending Studies at Discharge: No Stand-Alone Forms: My [facility], Smoking Cessation Medications and DC Order Prescriptions: New oxycodone 5 mg tablet 5 mg PO Q6H PRN (Reason: pain, severe) Qty: 30 0RF tramadol 50 mg tablet 50 mg PO Q6H PRN (Reason: pain, moderate) Qty: 30 0RF aspirin 81 mg Tablet,Delayed Release (Dr/Ec) 81 mg PO QAM Qty: 30 0RF cyanocobalamin (vitamin B-12) 1,000 mcg capsule 1,000 mcg PO DAILY Qty: 30 0RF Continued multivitamin tablet 1 tab PO QAM (DME) lancets [Wave[employer]aker LabsTouch Delica Lancets] 33 gauge [facility] See Rx Instructions .ROUTE .MEDSUPPLY Qty: 100 3RF Rx Instructions: Test Blood Sugars Once Daily As Directed (DME) OneTouch Verio test strips Strip See Rx Instructions .ROUTE .MEDSUPPLY Qty: 100 3RF Rx Instructions: Test Blood Sugars Once Daily As Directed (DME) blood-glucose meter [OneTouch Verio Flex meter] Misc See Rx Instructions .ROUTE .MEDSUPPLY Qty: 1 0RF Rx Instructions: Test blood sugars once a day as directed insulin aspart U-100 [Novolog U-100 Insulin aspart] 100 unit/mL solution 100 unit continuous subcutaneous infusion DAILY 90 Days Qty: 90 3RF losartan 100 mg tablet 100 mg PO QAM Qty: 90 3RF (DME) Scooter Misc See Rx Instructions .Route Qty: 1 0RF Rx Instructions: POWER SCOOTER metformin 500 mg tablet extended release 24 hr 1,000 mg PO BID Qty: 360 3RF labetalol 200 mg tablet 200 mg PO BID Qty: 180 3RF levothyroxine 50 mcg tablet 50 mcg PO DAILY Qty: 30 5RF gabapentin 300 mg capsule 600 mg PO TID Qty: 180 5RF atorvastatin 40 mg tablet 40 mg PO HS Qty: 90 3RF amlodipine 10 mg tablet 10 mg PO QAM Qty: 90 3RF hydrochlorothiazide 25 mg tablet 25 mg PO QAM Qty: 90 3RF (DME) Dexcom G6 Sensor Device See Rx Instructions .ROUTE .MEDSUPPLY Qty: 3 12RF Rx Instructions: Replace every 10 days potassium gluconate 595 mg (99 mg) tablet 595 mg PO QAM meclizine 25 mg tablet 25 mg PO TID PRN (Reason: dizziness) Qty: 30 0RF omeprazole 20 mg capsule,delayed release(DR/EC) 20 mg PO QAM PRN (Reason: gerd) fluticasone propionate 50 mcg/actuation spray,suspension 2 sprays intranasal UD PRN (Reason: NASAL CONGESTION ) Qty: 1 magnesium gluconate 27 mg magnesium (500 mg) tablet 27 mg PO QAM duloxetine 60 mg capsule,delayed release(DR/EC) 60 mg PO QAM Qty: 90 3RF acetaminophen [Tylenol Extra Strength] 500 mg Tablet 500 mg PO Q6H PRN (Reason: Pain) lidocaine 5 % adhesive patch,medicated 1 patch TOP DAILY PRN (Reason: pain) Qty: 15 0RF Rx Instructions: leave on most painful area for 12 hrs Discharge Orders: Discharge Order (Routine); Ordered 12/17/22 Ordered By: Bashir Walton Admission Data Admit Date/Time: 12/14/22 10:10 Attending Provider: Bashir Walton Admit Provider: Bashir Walton Primary Care Provider: Timbo Tejeda Other Providers: Ashutosh Lee ; Janee Pierce
== END 2022-12-17 14:17 | disposition home or self-care (01) | DRG 454 ==
LOC: ASU 06:06 → 3W 10:10

== ENCOUNTER 2023-09-16 09:30 | Observation (INO) ==
--- NOTE | 2023-08-22 10:02 | PAT Medication Instructions ---
Medication Instructions Date of Service August 22, 2023 Home Medications Medication Instructions Recorded meclizine 25 mg tablet 25 mg PO TID PRN dizziness #30 tabs 09/01/20 lidocaine 5 % topical patch 1 patch topical DAILY PRN pain #15 10/26/20 ea OneTouch Delica Lancets 33 gauge #100 ea 11/18/20 (lancets) OneTouch Verio Flex meter #1 ea 11/18/20 (blood-glucose meter) OneTouch Verio test strips (blood #100 ea 11/18/20 sugar diagnostic) Dexcom G6 Sensor (blood-glucose #3 ea 05/17/22 sensor) metformin 500 mg tablet,extended 1,000 mg PO BID #360 tabs 06/23/22 release 24 hr duloxetine 60 mg capsule,delayed 60 mg PO QAM #90 caps 11/15/22 release aspirin 81 mg tablet,delayed 81 mg PO QAM #30 tabs 12/15/22 release cyanocobalamin (vitamin B-12) 1,000 mcg PO DAILY #30 caps 12/16/22 1,000 mcg capsule losartan 100 mg tablet 100 mg PO QAM #90 tabs 02/02/23 amlodipine 5 mg tablet 5 mg PO QAM #90 tabs 02/14/23 insulin aspart U-100 100 unit/mL 100 unit continuous subcutaneous 03/09/23 subcutaneous solution (Novolog infusion DAILY 90 days #90 mL U-100 Insulin aspart) bupropion HCl 100 mg tablet 100 mg PO BID #60 tabs 04/27/23 testosterone 1 pump topical DAILY #75 grams 06/28/23 gabapentin 300 mg capsule 600 mg PO TID #180 caps 07/12/23 labetalol 200 mg tablet 200 mg PO BID #180 tabs 07/20/23 multivitamin 1 tab PO QAM fluticasone propionate 50 mcg/actuation nasal spray,suspension 2 sprays intranasal UD PRN NASAL CONGESTION magnesium gluconate 27 mg magnesium (500 mg) tablet 27 mg PO QAM potassium gluconate 595 mg (99 mg) tablet 595 mg PO QAM meclizine 25 mg tablet 25 mg PO TID PRN dizziness acetaminophen 500 mg tablet (Tylenol Extra Strength) 500 mg PO Q6H PRN Pain lidocaine 5 % topical patch 1 patch topical DAILY PRN pain metformin 500 mg tablet,extended release 24 hr 1,000 mg PO BID omeprazole 20 mg capsule,delayed release 20 mg PO QAM PRN gerd duloxetine 60 mg capsule,delayed release 60 mg PO QAM aspirin 81 mg tablet,delayed release 81 mg PO QAM cyanocobalamin (vitamin B-12) 1,000 mcg capsule 1,000 mcg PO DAILY losartan 100 mg tablet 100 mg PO QAM amlodipine 5 mg tablet 5 mg PO QAM insulin aspart U-100 100 unit/mL subcutaneous solution (Novolog U-100 Insulin aspart) 100 unit continuous subcutaneous infusion DAILY bupropion HCl 100 mg tablet 100 mg PO BID testosterone 1 pump topical DAILY gabapentin 300 mg capsule 600 mg PO TID labetalol 200 mg tablet 200 mg PO BID rosuvastatin 20 mg tablet 20 mg PO QAM Continue as directed lidocaine 5 % topical patch 1 patch topical DAILY PRN pain (avoid placement near surgical site prior to surgery) DO NOT take the morning of surgery multivitamin 1 tab PO QAM magnesium gluconate 27 mg magnesium (500 mg) tablet 27 mg PO QAM potassium gluconate 595 mg (99 mg) tablet 595 mg PO QAM metformin 500 mg tablet,extended release 24 hr 1,000 mg PO BID cyanocobalamin (vitamin B-12) 1,000 mcg capsule 1,000 mcg PO DAILY losartan 100 mg tablet 100 mg PO QAM Take morning of surgery With a small sip of water, OTHERWISE NOTHING TO EAT OR DRINK AFTER MIDNIGHT: fluticasone propionate 50 mcg/actuation nasal spray,suspension 2 sprays intranasal UD PRN NASAL CONGESTION (if needed) meclizine 25 mg tablet 25 mg PO TID PRN dizziness (if needed) acetaminophen 500 mg tablet (Tylenol Extra Strength) 500 mg PO Q6H PRN Pain (if needed) omeprazole 20 mg capsule,delayed release 20 mg PO QAM PRN gerd (if needed) duloxetine 60 mg capsule,delayed release 60 mg PO QAM aspirin 81 mg tablet,delayed release 81 mg PO QAM (continue as normal unless told otherwise by surgeon) amlodipine 5 mg tablet 5 mg PO QAM bupropion HCl 100 mg tablet 100 mg PO BID testosterone 1 pump topical DAILY gabapentin 300 mg capsule 600 mg PO TID labetalol 200 mg tablet 200 mg PO BID rosuvastatin 20 mg tablet 20 mg PO QAM Take evening before surgery fluticasone propionate 50 mcg/actuation nasal spray,suspension 2 sprays intranasal UD PRN NASAL CONGESTION (if needed) meclizine 25 mg tablet 25 mg PO TID PRN dizziness (if needed) acetaminophen 500 mg tablet (Tylenol Extra Strength) 500 mg PO Q6H PRN Pain (if needed) metformin 500 mg tablet,extended release 24 hr 1,000 mg PO BID bupropion HCl 100 mg tablet 100 mg PO BID gabapentin 300 mg capsule 600 mg PO TID labetalol 200 mg tablet 200 mg PO BID Insulin Dependent Diabetic Patients Unless provided specific instructions by your prescribing provider: For insulin pump, set to basal rate setting. Do not bolus morning of surgery. Other Notes If you have any questions please call us at [phone] or [phone] or [phone] or [phone]
--- NOTE | 2023-08-23 10:20 | Anesthesiology Consultation ---
Date of Service August 23, 2023 Assessment & Plan (1) Encounter for pre-operative examination: - Check BMP DOS (potassium borderline elevated at 5.2 on preop labs 08/23/23- will recheck level DOS) - Check BSG AM DOS - Infectious disease screening: Per assessment on 08/23/23: No known infectious disease contacts or current infectious disease symptoms. No noted Covid positive test result in past 90 days. - Outpatient joint assessment: Pt currently scheduled for inpatient pathway. If surgeon requests review for outpatient joint pathway, patient is acceptable cand idate for outpatient joint program from anesthesia standpoint pending surgeon's office assessment that patient is motivated, has good support and completes [facility] preop requirements. - S/P L2-4 decompression/fusion, L4-5 hardware removal (12/14/22): Grade 3 view, MAC#4, ETT 7.5 at [facility] - Diabetes visit (08/05/23 [place]): "Good control.. Management changes: No changes to pump settings. Would plan to continue metformin.. Nephropathy: CKD stage III. GFR is down a little from the last visit and this looks like his lowest value in the last several years. I do not have enough data to see a trend but I do think that increasing his SGLT2 inhibitor (Jardiance) is a isaacs move here. He is in agreement with this. Samples provided. Change: Jardiance to 25 mg daily.. Follow Up: about 4 months and sooner if needed" Chart Review Chart Review: Acceptable Risk for Surgery and Patient seen in Pre Admission Testing Teaching & Discussion Pre-Anesthesia Teaching/Discussion Notes: Instructed NPO after midnight before surgery,except medications with 15 cc of water. Medication instructions provided according to the PAT guidelines. History Surgery Operation Date: 09/16/23 10:15 Proposed Procedures p Right Total Knee Arthroplasty - Willi Mccain, Height/Weight Height: 5 ft 6.5 in Weight: 89.4 kg Allergies Allergy/AdvReac Type Severity Reaction Status Date / Time morphine Allergy Intermediate Arms/hands Verified 08/19/23 09:59 swelling lisinopril AdvReac Mild Cough Verified 08/19/23 09:59 Medications Home Medications Medication Instructions Recorded Confirmed Last Taken multivitamin 1 tab PO QAM 08/08/18 08/15/23 12/13/22 04:30 fluticasone propionate 50 2 sprays intranasal UD PRN NASAL 06/28/19 08/15/23 02/04/21 06:00 mcg/actuation nasal CONGESTION #1 g spray,suspension magnesium gluconate 27 mg 27 mg PO QAM 06/28/19 08/15/23 02/04/21 06:00 magnesium (500 mg) tablet potassium gluconate 595 mg (99 mg) 595 mg PO QAM 12/10/19 08/15/23 12/13/22 04:30 tablet meclizine 25 mg tablet 25 mg PO TID PRN dizziness #30 tabs 09/01/20 08/15/23 02/04/21 06:00 acetaminophen 500 mg tablet 500 mg PO Q6H PRN Pain 10/26/20 08/15/23 12/11/22 12:00 (Tylenol Extra Strength) lidocaine 5 % topical patch 1 patch topical DAILY PRN pain #15 10/26/20 08/15/23 Unknown ea OneTouch Delica Lancets 33 gauge #100 ea 11/18/20 07/19/23 Unknown (lancets) OneTouch Verio Flex meter #1 ea 11/18/20 07/19/23 Unknown (blood-glucose meter) OneTouch Verio test strips (blood #100 ea 11/18/20 07/19/23 Unknown sugar diagnostic) Dexcom G6 Sensor (blood-glucose #3 ea 05/17/22 08/05/23 Unknown sensor) omeprazole 20 mg capsule,delayed 20 mg PO QAM PRN gerd 09/22/22 08/15/23 12/14/22 05:30 release duloxetine 60 mg capsule,delayed 60 mg PO QAM #90 caps 11/15/22 08/15/23 12/14/22 05:30 release aspirin 81 mg tablet,delayed 81 mg PO QAM #30 tabs 12/15/22 08/15/23 Unknown release cyanocobalamin (vitamin B-12) 1,000 mcg PO DAILY #30 caps 12/16/22 08/15/23 Unknown 1,000 mcg capsule losartan 100 mg tablet 100 mg PO QAM #90 tabs 02/02/23 08/15/23 Unknown amlodipine 5 mg tablet 5 mg PO QAM #90 tabs 02/14/23 08/15/23 Unknown insulin aspart U-100 100 unit/mL 100 unit continuous subcutaneous 03/09/23 08/15/23 Unknown subcutaneous solution (Novolog infusion DAILY 90 days #90 mL U-100 Insulin aspart) bupropion HCl 100 mg tablet 100 mg PO BID #60 tabs 04/27/23 08/15/23 Unknown testosterone 1 pump topical DAILY #75 grams 06/28/23 08/15/23 Unknown gabapentin 300 mg capsule 600 mg PO TID #180 caps 07/12/23 08/15/23 Unknown labetalol 200 mg tablet 200 mg PO BID #180 tabs 07/20/23 08/15/23 Unknown rosuvastatin 20 mg tablet 20 mg PO QAM 08/15/23 08/15/23 Unknown empagliflozin 25 mg tablet 25 mg PO DAILY 08/23/23 08/23/23 Unknown metformin 500 mg tablet,extended 1,000 mg PO HS 08/23/23 08/23/23 Unknown release 24 hr Past Medical History Medical History Anemia s/p colonoscopy/EGD for further evaluation which were unremarkable Carotid artery stenosis, asymptomatic Carotid doppler 10/2022: b/l 50-69% stenosis ICA Central hypothyroidism Chronic lumbar pain CKD (chronic kidney disease) Stage III Depression HX Diabetes type 2, uncontrolled insulin pump; t:slim Diabetic peripheral neuropathy Dyslipidemia GERD (gastroesophageal reflux disease) controlled, stable per pt Glaucoma HTN (hypertension), benign Hypogonadism male Lesion of skin of nose s/p excision Low testosterone Lumbar stenosis + radiculopathy Multinodular goiter Obesity PAD (peripheral artery disease) Retinopathy Sacroiliitis Spinal cord stimulator status Implanted 2019- Advised to bring remote DOS Thyroid nodule under observation Exercise / Class Metabolic Activity II 4-5 Yardwork/Stairs/Walk up hill Past Family History Family History Mother , 1987-pancreatic cancer Family history of diabetes mellitus Cancer Father Family history of diabetes mellitus Hx of CABG Hypertension Grandmother (Maternal) Family history of diabetes mellitus Denies family history of Ovarian cancer Prostate cancer Coronary heart disease Breast cancer Colorectal cancer Past Surgical History Surgical History H/O repair of left rotator cuff X2 H/O repair of right rotator cuff History of bilateral carpal tunnel release History of colonoscopy History of esophagogastroduodenoscopy (EGD) History of lumbar fusion L3-L5 decompression fusion 11/24/1718 Grade 3-4 view, MAC 3, ETT 8. 12/2022, [facility] L2-4 decompression/fusion, L4-5 hardware removal (12/14/22): Grade 3 view, MAC#4, ETT 7.5 at [facility] History of Mohs micrographic surgery for skin cancer Nose History of reverse total replacement of left shoulder joint 12/16/1819 Grade 2 view, Carbajal 2, ETT 7.5 + [facility] S/P wrist surgery Right Past Anesthesia History No Hx of Anesthesia Complications and No Family Hx of Anesthesia Complications History of PONV No Hx of PONV and No Hx of Motion Sickness Social History Smoking Status: Never smoker Do You Dip or Chew Tobacco: No Hx Alcohol Use: No Hx Substance Use: No substance use type: does not use Review of Systems Patient denies chest pain, shortness of breath, dyspnea on exertion, fever, chills, cough, wheezing, palpitations. Physical Exam Vital Signs VITALS BP 149/75 P 76 TEMP 97.8 SP02 95%RA RESP 16 PHYSICAL Full cervical extension range of motion. Full TMJ range of motion. TMD 3 finger breaths Mallampati Score 1 Dentition: intact Lungs: clear throughout to auscultation Cardiac: regular rate and rhythm, no murmurs noted Spine: normal Carotid arteries: negative bruit Extremities: no LE edema Lab Results Anesthesia Preop Results Results Anesthesia Widget: WBC 6.78 K/ul (4.8-10.8) 08/01/23 Hgb 10.8 g/dl (14.0-18.0) L 08/01/23 Hct 34.3 % (42.0-52.0) L 08/01/23 Plt 179 K/uL (130-400) 08/01/23 Na 139 mmol/L (136-145) 08/23/23 K 5.2 mmol/L (3.5-5.1) H 08/23/23 Cl 107 mmol/L (98-107) 08/23/23 CO2 26 mmol/L (21-32) 08/23/23 BUN 24 mg/dl (6-23) H 08/23/23 Creat 1.34 mg/dl (0.6-1.4) 08/23/23 Glucose Level 98 mg/dl (70-99(Fasting)) 08/23/23 PT 10.9 Seconds (9.0-12.0) 08/23/23 PTT 27.6 Seconds (21.0-31.0) 08/23/23 INR 1.0 (0.9-1.1) 08/23/23 HA1c 7.5 % (4.5-5.6) H 08/01/23 Blood Type A Positive 08/23/23 Antibody Screen NEGATIVE 08/23/23 Testing Electrocardiogram Date: 11/30/22 NSR, rate 74 bpm Chest X-Ray Date: 11/30/22 No significant change compared to the prior study. No acute process. Other Testing Carotid doppler Date: 10/07/22 50-69% ICAs bilat > 50% stenosis external carotid arteries bilat Pituitary MRI Date: 08/26/22 The pituitary gland is normal without evidence of adenoma. Thyroid ultrasound Date: 07/12/23 Multiple thyroid nodules as above. The isthmus nodule was previously biopsied and found to be benign. Ill-defined bilateral thyroid nodules appear essentially stable from prior exams. Barium swallow Date: 07/12/23 FINDINGS: The patient swallowed barium without difficulty. The contours of the hypopharynx are within normal limits. Mild esophageal dysmotility is noted. Otherwise, the esophagus is normal in course and caliber. No hiatus hernia. No gastroesophageal reflux demonstrated during the examination. The barium tablet passed without difficulty. Spinal stimulator leads are partially visualized. IMPRESSION: Mild esophageal dysmotility. Otherwise, normal barium swallow.
--- NOTE | 2023-09-15 06:37 | History & Physical Report ---
Date of Service September 15, 2023 Assessment & Plan (1) Osteoarthritis of right knee: We will proceed with a right total knee arthroplasty. Postoperatively he will be started on aspirin for DVT prophylaxis and kept overnight in the hospital for postop medical management. He plans to use energy physical therapy upon discharge. History of Present Illness Chief Complaint: Osteoarthritis of the right knee. Primary Care Provider: Timbo Tejeda MD Avi is a pleasant 68-year-old male who has been dealing with chronic increasing right knee pain. X-rays showed some mild osteoarthritis, however, an MRI shows grade 4 chondral changes in the medial and patellofemoral compartments. 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 He has a lot of pain going up and down stairs. He has pain when he kneels down. He has a constant dull ache in his knees as well. He has a lot of pain along the medial side. After failing conservative treatment, he has elected proceed with a right total knee arthroplasty. Allergies Allergy/AdvReac Type Severity Reaction Status Date / Time morphine Allergy Intermediate Arms/hands Verified 08/19/23 09:59 swelling lisinopril AdvReac Mild Cough Verified 08/19/23 09:59 Home Medications Medication Instructions Recorded Confirmed Type multivitamin 1 tab PO QAM 08/08/18 08/15/23 History fluticasone propionate 50 2 sprays intranasal UD PRN NASAL 06/28/19 08/15/23 History mcg/actuation nasal CONGESTION #1 g spray,suspension magnesium gluconate 27 mg 27 mg PO QAM 06/28/19 08/15/23 History magnesium (500 mg) tablet potassium gluconate 595 mg (99 mg) 595 mg PO QAM 12/10/19 08/15/23 History tablet meclizine 25 mg tablet 25 mg PO TID PRN dizziness #30 tabs 09/01/20 08/15/23 Rx acetaminophen 500 mg tablet 500 mg PO Q6H PRN Pain 10/26/20 08/15/23 History (Tylenol Extra Strength) lidocaine 5 % topical patch 1 patch topical DAILY PRN pain #15 10/26/20 08/15/23 Rx ea OneTouch Delica Lancets 33 gauge #100 ea 11/18/20 07/19/23 Rx (lancets) OneTouch Verio Flex meter #1 ea 11/18/20 07/19/23 Rx (blood-glucose meter) OneTouch Verio test strips (blood #100 ea 11/18/20 07/19/23 Rx sugar diagnostic) Dexcom G6 Sensor (blood-glucose #3 ea 05/17/22 08/05/23 Rx sensor) omeprazole 20 mg capsule,delayed 20 mg PO QAM PRN gerd 09/22/22 08/15/23 History release duloxetine 60 mg capsule,delayed 60 mg PO QAM #90 caps 11/15/22 08/15/23 Rx release aspirin 81 mg tablet,delayed 81 mg PO QAM #30 tabs 12/15/22 08/15/23 Rx release cyanocobalamin (vitamin B-12) 1,000 mcg PO DAILY #30 caps 12/16/22 08/15/23 Rx 1,000 mcg capsule losartan 100 mg tablet 100 mg PO QAM #90 tabs 02/02/23 08/15/23 Rx amlodipine 5 mg tablet 5 mg PO QAM #90 tabs 02/14/23 08/15/23 Rx insulin aspart U-100 100 unit/mL 100 unit continuous subcutaneous 03/09/23 08/15/23 Rx subcutaneous solution (Novolog infusion DAILY 90 days #90 mL U-100 Insulin aspart) bupropion HCl 100 mg tablet 100 mg PO BID #60 tabs 04/27/23 08/15/23 Rx testosterone 1 pump topical DAILY #75 grams 06/28/23 08/15/23 Rx gabapentin 300 mg capsule 600 mg (2 x 300 mg) PO TID #180 07/12/23 08/15/23 Rx caps labetalol 200 mg tablet 200 mg PO BID #180 tabs 07/20/23 08/15/23 Rx rosuvastatin 20 mg tablet 20 mg PO QAM 08/15/23 08/15/23 History empagliflozin 25 mg tablet 25 mg PO DAILY 08/23/23 08/23/23 History metformin 500 mg tablet,extended 1,000 mg PO HS 08/23/23 08/23/23 History release 24 hr Past Med/Surg History Medical History Hypogonadism male Lesion of skin of nose s/p excision Sacroiliitis Central hypothyroidism Low testosterone Multinodular goiter Spinal cord stimulator status Implanted 2020- Advised to bring remote DOS Thyroid nodule under observation Chronic lumbar pain Carotid artery stenosis, asymptomatic Carotid doppler 10/2022: b/l 50-69% stenosis ICA Glaucoma PAD (peripheral artery disease) Retinopathy CKD (chronic kidney disease) Stage III Dyslipidemia Diabetes type 2, uncontrolled insulin pump; t:slim Obesity Diabetic peripheral neuropathy Anemia s/p colonoscopy/EGD for further evaluation which were unremarkable Depression HX GERD (gastroesophageal reflux disease) controlled, stable per pt HTN (hypertension), benign Lumbar stenosis + radiculopathy Surgical History History of Mohs micrographic surgery for skin cancer Nose History of reverse total replacement of left shoulder joint 12/16/1819 Grade 2 view, Carbajal 2, ETT 7.5 + [facility] S/P wrist surgery Right History of esophagogastroduodenoscopy (EGD) History of colonoscopy History of bilateral carpal tunnel release H/O repair of right rotator cuff H/O repair of left rotator cuff X2 History of lumbar fusion L3-L5 decompression fusion 11/24/1718 Grade 3-4 view, MAC 3, ETT 8. 12/2022, [facility] L2-4 decompression/fusion, L4-5 hardware removal (12/14/22): Grade 3 view, MAC#4, ETT 7.5 at [facility] Family History Mother , 1987-pancreatic cancer Family history of diabetes mellitus Cancer Father Family history of diabetes mellitus Hx of CABG Hypertension Grandmother (Maternal) Family history of diabetes mellitus Denies family history of Ovarian cancer Prostate cancer Coronary heart disease Breast cancer Colorectal cancer Social History Smoking Status: Never smoker Second Hand Exposure: No; Do You Dip or Chew Tobacco: No; Tobacco Cessation Education Requested by Patient: No Hx Alcohol Use: No Hx Substance Use: No Preferred Language: Sinhala Communication Ability: Effective Visual Impairment: No Limitations Hearing Ability: Normal Home Theater Installer Required: No Beliefs That Will Affect Care: None marital status: Current Living Situation: Spouse Current Living Situation Comment: 4 children current occupational status: retired 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 Physical Exam On physical examination of the right knee, he has range of motion from 0 to 120 degrees. No gross instability. Pain over the distal medial femoral condyle and in the patellofemoral joint.. Constitutional WD/WN, vitals as above Eyes PERRL, conjunctivae normal, anicteric sclerae ENMT external ear and nose normal, oropharynx normal Neck trachea midline, no thyromegaly Respiratory normal respiratory effort Cardiovascular RRR, no murmur, no edema Gastrointestinal (Abdomen) normal bowel sounds, soft, nontender, no hepatosplenomegaly Psychiatric A+Ox3, euthymic affect Results & Data Results & Data Laboratory Results . Diagnostic Findings X-rays of the right knee show some mild medial compartment arthritis. The x- rays do not look too bad. MRI of the right knee shows advanced grade 4 chondral changes throughout the distal medial femoral condyle and the patellofemoral joint.. PG Care Time/CCT Total # of Minutes Spent Total Time Spent with Patient: Total time spent is greater than 50% in coordination of care (as documented) at patient's floor/unit and/or counseling patient: Coding Level of Care Code None Diagnoses Osteoarthritis of right knee M17.11
[~2023-09-16 09:30] MED LIST changes: +BUPIVACAINE 0.5 % 5 MG/1 ML PF 10ML VIAL ONE; -CeleBREX 200 MG CAP PO SCH; +FAMOTIDINE 20 MG TAB PO SCH; -LR 15ML/HR IV SCH; +LR 500ML BOLUS, THEN 15ML/HR IV SCH; +LR 60ML/HR IV SCH; +ORTHO JOINT MIX INFIL SCH; +ROPIVACAINE 0.5% 5 MG/ML 30 ML VIAL ONE; +TRANEXAMIC ACID 1,000 MG **IV Intra-op IV SCH; +TRANEXAMIC ACID 1,000 MG **IV Pre-op IV SCH; +dexAMETHasone 4 MG TAB PO SCH
[2023-09-16] MEDS ORDERED: fentaNYL citrate PF 100 MCG/2 ML VIAL ONE (10:05)
[2023-09-16] MEDS ORDERED: MIDAZOLAM HCL 1 MG/ML 2ML VIAL ONE (10:05)
[2023-09-16 10:19] LABS: BUN Creatinine Ratio 19.3 (10-20); Calcium 9.1 mg/dl (8.6-10.3); Creatinine Clr Calc Pharmacy 48.4 ml/min; Est GFR (African American) 53.9 ml/min; Est GFR (Non-African American) 46.5 ml/min; Potassium 4.7 mmol/L (3.5-5.1)
[2023-09-16] MEDS ORDERED: ORTHO JOINT ANESTHETIC ONE (10:44)
[2023-09-16] MEDS ORDERED: ePHEDrine sulfate 50 MG/ML AMP IV PRN (10:58)
[2023-09-16] MEDS ORDERED: ONDANSETRON INJ 2 MG/ML 2 ML VIAL IV PRN ×2 (10:58→14:21)
[2023-09-16] MEDS ORDERED: ATROPINE SULFATE 0.1 MG/ML 10ML SYR IV PRN (10:58)
[2023-09-16] MEDS ORDERED: fentaNYL citrate PF 100 MCG/2 ML VIAL IV PRN (10:58)
--- NOTE | 2023-09-16 11:05 | History & Physical Bridge Note ---
Date of Service September 16, 2023 History & Physical Bridge Note I have examined the patient, reviewed the History & Physical and in the interval since the performance of the History & Physical I have noted the following changes of clinical significance: no changes noted
[2023-09-16] MEDS ORDERED: HYDROmorphone INJ 2 MG/ML SYR/VIAL ONE (12:23)
[2023-09-16] MEDS ORDERED: ONDANSETRON INJ 2 MG/ML 2 ML VIAL ONE (12:25)
[2023-09-16] MEDS ORDERED: PROPOFOL IV EMULSION 10 MG/ML 20 ML VIAL IV ONE (12:25)
[2023-09-16] MEDS ORDERED: ePHEDrine sulfate 50 MG/5 ML SYR ONE (12:25)
[2023-09-16] MEDS ORDERED: PHENYLEPHRINE 100MCG/ML 10ML SYR IV ONE (12:25)
--- NOTE | 2023-09-16 12:31 | Operative Report ---
PG Post Operative Report Pre & Post Diagnosis Operation Date: 09/16/23 11:00 Pre-Op Diagnosis: Right Knee Degenerative Joint Disease Post-Op Diagnosis: Right Knee Degenerative Joint Disease I identified the patient and participated in the time-out.: Yes Procedure Operation Date: 09/16/23 11:00 Actual Procedures p Right Total Knee Arthroplasty(Right) - Willi Mccain DO Surgeon Willi Mccain DO [employer] Willi Zarate PA-C Estimated Blood Loss 30 Findings Consistent with Post-Op Diagnosis Specimens Right femoral and tibial bone Description of Procedure Implants used: I used a Nayana Persona total knee arthroplasty system with a size 7 standard CR femur, E tibia, 31 oval patella, and a size 11 medial congruent polyethylene bearing. All components were cemented in place with Biomet cement. Avi arrived [facility] for the above procedure. He was seen in the preoperative holding area and the operative extremity was identified and signed. He was given a preoperative antibiotic, TXA, and an adductor nerve block. He was taken back to the operating room and laid on the table in supine position. He was given general anesthesia. The operative knee was then prepped and draped in sterile fashion. A timeout was done, and the patient and the operative extremity was properly identified. A midline incision was made directly over the patella. Dissection was taken down to the extensor mechanism. A midvastus arthrotomy was used. The medial retinaculum was released and the fat pad was mostly excised. The knee was flexed and the ACL, PCL, and meniscus were removed. A drill was sent down the center of the femoral canal followed by an intramedullary uday. Off that uday a distal femoral cutting block was placed. 9 mm was resected off the distal femur at 5 of valgus. A posterior referencing AP sizing guide was then placed on the distal femur. The femur measured to be a size 7. 2 drill holes were placed in 3 of external rotation. A 4-in-1 cutting block was then impacted into place. Anterior, posterior, and chamfer cuts were then made. The proximal tibia was then exposed. An external tibial alignment guide was placed. A tibial cut guide was then anchored in place and the proximal tibia was then resected. The posterior aspect of the knee was then opened up and any additional meniscus fragments and osteophytes were removed. The tibia measured to be a size E. The tibial plate was then placed in the appropriate rotation and the tibia was drilled and punched. Trial components were then placed. I used a size 11 medial congruent polyethylene insert. The knee was brought through a full range of motion and felt to be stable. The peg holes for the femoral component were then drilled. The patella was then everted and 9 mm was resected off the posterior aspect of the patella. The patella measured to be a size 31 oval. 3 peg holes were then drilled. A trial patella was placed. The knee was once again brought through a full range of motion and felt to be stable. Trial components were then removed. The surrounding soft tissues were injected with 100 cc of an orthopedic pain control cocktail. All components were then cemented into place with Biomet cement. The final polyethylene insert was then snapped into place. Once cement was dry the tourniquet was deflated. Hemostasis was obtained. A dilute betadyne lavage was then done for 3 minutes. The joint was then irrigated with normal saline solution. The midvastus arthrotomy was then closed with #1 Vicryl suture. The skin was closed with 2-0 Vicryl, 3-0V lock suture, and rebel. A soft compressive dressing was placed. He was then transferred to a hospital bed and taken to the postanesthesia care unit in stable condition. He tolerated the procedure well. Willi Zarate PA-C, was present for the entire procedure. He was critical for patient positioning, prepping, draping, retraction exposure, wound closure and application of sterile dressing. I attest to the content of the Intraoperative Record and any orders documented therein. Any exceptions are noted below.
--- NOTE | 2023-09-16 13:31 | XRay Report ---
TWO VIEWS RIGHT KNEE CLINICAL HISTORY: Postoperative examination. FINDINGS: AP and crosstable lateral portable views of the right knee are obtained. A right knee arthr oplasty is in near anatomic alignment. There has been undersurface remodeling of the patella. No acut e fracture is seen. There are expected postoperative changes around the knee including skin clips, so ft tissue edema, and subcutaneous gas. There is atherosclerotic calcification of the popliteal artery . IMPRESSION: Expected postoperative changes status post right knee arthroplasty. No acute fracture is seen. ACT 112: Negative or not required by law. Electronically signed by: Yuri Navarro M.D. 09/16/2023 1:29 PM
--- NOTE | 2023-09-16 13:36 | Anesthesiology Progress Note ---
Date of Service September 16, 2023 Anesthesia Post Procedure Vital Signs Vital Signs: Temp Pulse Pulse Resp BP Pulse Ox O2 Del Method 09/16/23 13:25 85 12 133/61 94 Nasal Cannula 09/16/23 13:15 85 14 151/72 H 96 Oxymask 09/16/23 13:05 90 16 166/71 H 99 Oxymask 09/16/23 12:56 96.8 F L 83 16 156/73 H 98 Oxymask 09/16/23 10:06 98.1 F 78 18 163/80 H 97 Room Air O2 Flow Rate 09/16/23 13:25 2 09/16/23 13:15 5 09/16/23 13:05 5 09/16/23 12:56 5 09/16/23 10:06 Pain Intensity Right Knee: Pain Intensity: 3 Transfer of Care Handoff Completed per policy Notes Mental Status: alert / awake / arousable and participated in evaluation Patient Amnestic to Procedure: Yes Nausea / Vomiting: adequately controlled Pain: adequately controlled Airway Patency, RR, SpO2: stable & adequate BP & HR: stable & adequate Hydration State: stable & adequate Anesthetic Complications: no major complications apparent and Pt Satisfied with anesthetic care
[2023-09-16] MEDS ORDERED: LIDOCAINE 5% 1 PATCH TD PRN (14:21)
[2023-09-16] MEDS ORDERED: FLUTICASONE PROPIONATE NA SPR 16 GM BTL PRN (14:21)
[2023-09-16] MEDS ORDERED: MAGNESIUM HYDROXIDE SUSP 30 ML UDC PO PRN (14:21)
[2023-09-16] MEDS ORDERED: MECLIZINE HCL 25 MG TAB PO PRN (14:21)
[2023-09-16] MEDS ORDERED: NALOXONE HCL 0.4 MG/1 ML VIAL/CARP IV PRN (14:21)
[2023-09-16] MEDS ORDERED: oxyCODONE HCL IR 5 MG TAB (IMMEDIATE RELEASE) PO PRN (14:21)
[2023-09-16] MEDS ORDERED: HYDROmorphone INJ 0.5 MG/0.5 ML SYR IV PRN (14:21)
[2023-09-16] MEDS ORDERED: bisacodyL 10 MG SUPP PR PRN (14:21)
[2023-09-16] MEDS ORDERED: METOCLOPRAMIDE HCL INJ 5 MG/ML 2 ML VIAL IV PRN (14:21)
[2023-09-16] MEDS ORDERED: PHARMACY GLYCEMIC MGMT CONSULT PRN (14:21)
[2023-09-16] MEDS: SODIUM CHLORIDE 0.9% 1,000 ML IV SCH ×2 (14:38→23:47)
[2023-09-16] MEDS ORDERED: CARBOHYDRATES FOR HYPOGLYCEMIA PO PRN (15:00)
[2023-09-16] MEDS ORDERED: DEXTROSE 50% 50 ML SYRINGE IV PRN (15:00)
[2023-09-16] MEDS ORDERED: GLUCOSE 10 TAB/TUBE PO PRN (15:00)
[2023-09-16] MEDS ORDERED: GLUCOSE 40% GEL 15 GM TUBE PO PRN (15:00)
[2023-09-16] MEDS ORDERED: INSULIN ASPART 100 UNITS/ML VIAL SC PRN (15:00)
[2023-09-16] MEDS ORDERED: GLUCAGON FOR INJ 1 MG VIAL IM PRN (15:00)
[2023-09-16] MEDS: ACETAMINOPHEN 500 MG TAB PO SCH ×2 (15:06→21:54)
[2023-09-16] MEDS: KETOROLAC TROMETHAMINE 15 MG/ML VIAL IV SCH ×2 (15:07→19:59)
[2023-09-16] MEDS: GABAPENTIN 600 MG TAB PO SCH ×2 (15:31→20:08)
[2023-09-16] MEDS: INSULIN, Rapid-Acting PUMP SCH ×2 (17:53→22:17)
[2023-09-16] MEDS: ceFAZolin 2000MG 2,000 MG/15 ML SYR IV SCH (18:21)
[2023-09-16] MEDS: buPROPion HCl 100 MG TABLET PO SCH (20:09)
[2023-09-16] MEDS: DOCUSATE SODIUM 100 MG CAP PO SCH (20:10)
[2023-09-16] MEDS: ASPIRIN 81 MG ECTAB PO SCH (20:10)
[2023-09-16] MEDS: LABETALOL HCL 200 MG TAB PO SCH (20:12)
[2023-09-16] MEDS ORDERED: SENNA 8.6 MG TAB PO SCH (21:00)
[2023-09-17] MEDS: KETOROLAC TROMETHAMINE 15 MG/ML VIAL IV SCH ×2 (02:45→08:10)
[2023-09-17] MEDS: ceFAZolin 2000MG 2,000 MG/15 ML SYR IV SCH (02:45)
[2023-09-17] MEDS: ACETAMINOPHEN 500 MG TAB PO SCH (05:16)
[2023-09-17] MEDS: buPROPion HCl 100 MG TABLET PO SCH (08:10)
[2023-09-17] MEDS: ASPIRIN 81 MG ECTAB PO SCH (08:10)
[2023-09-17] MEDS: DOCUSATE SODIUM 100 MG CAP PO SCH (08:10)
[2023-09-17] MEDS: GABAPENTIN 600 MG TAB PO SCH (08:11)
[2023-09-17] MEDS: LABETALOL HCL 200 MG TAB PO SCH (08:11)
[2023-09-17] MEDS: INSULIN, Rapid-Acting PUMP SCH (08:16)
[2023-09-17] MEDS ORDERED: amLODIPine BESYLATE 5 MG TAB PO SCH (09:00)
[2023-09-17] MEDS ORDERED: DULoxetine HCL 60 MG CAP PO SCH (09:00)
[2023-09-17] MEDS ORDERED: ROSUVASTATIN CALCIUM 20 MG TAB PO SCH (09:00)
[2023-09-17] MEDS ORDERED: MULTIVITAMIN TAB PO SCH (09:00)
[2023-09-17] MEDS ORDERED: NON-FORMULARY MEDICATION (Magnesium Gluconate 27 mg magnesium (500 mg) tablet) PO SCH (09:00)
[2023-09-17] MEDS ORDERED: LOSARTAN POTASSIUM 50 MG TAB PO SCH (09:00)
[2023-09-17] MEDS ORDERED: NON-FORMULARY MEDICATION (Potassium Gluconate 595 mg (99 mg) tablet) PO SCH (09:00)
--- NOTE | 2023-09-17 09:36 | Orthopedic Progress Note ---
Date of Service September 17, 2023 Assessment & Plan (1) Status post right knee replacement: Overall he is doing very well. He is not having much pain in the right knee. He will be seen by physical therapy today for ambulation and range of motion exercises. He is on aspirin for DVT prophylaxis. The nursing staff can change his dressing after physical therapy. He can be discharged home later today. He will follow with orthopedics in 2 weeks. Subjective Sawyer was seen and examined at bedside this morning. Overall is doing very well. He is not having much pain in the right knee. He has been up and ambulate to the bathroom. Has no complaints.. Review of Systems All systems reviewed & are unremarkable except as noted in HPI & below. Physical Exam On physical examination of the right knee, the dressing is clean and dry. His legs out full extension. He has active dorsiflexion plantarflexion of his right ankle.. Results & Data Results & Data Laboratory Results . Diagnostic Findings Postoperative x-rays of the right knee show the prosthesis to be in anatomic alignment without any evidence of fracture complication, or loosening.. PG Care Time/CCT Total # of Minutes Spent Total Time Spent with Patient: Total time spent is greater than 50% in coordination of care (as documented) at patient's floor/unit and/or counseling patient: Coding Level of Care Code 64534 Post Operative Follow-Up Diagnoses Status post right knee replacement Z96.651
--- NOTE | 2023-09-17 09:37 | Discharge Summary ---
Date of Service September 17, 2023 Admission HPI (Per Admitting) Avi is a pleasant 68-year-old male who has been dealing with chronic increasing right knee pain. X-rays showed some mild osteoarthritis, however, an MRI shows grade 4 chondral changes in the medial and patellofemoral compartments. 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 He has a lot of pain going up and down stairs. He has pain when he kneels down. He has a constant dull ache in his knees as well. He has a lot of pain along the medial side. After failing conservative treatment, he has elected proceed with a right total knee arthroplasty. Admission Exam (Per Admitting) On physical examination of the right knee, he has range of motion from 0 to 120 degrees. No gross instability. Pain over the distal medial femoral condyle and in the patellofemoral joint.. Principal Diagnosis Same as "Discharge Diagnosis" noted below under Discharge Instructions. Discharge Exam On physical examination of the right knee, the dressing is clean and dry. His legs out full extension. He has active dorsiflexion plantarflexion of his right ankle.. Discharge Data Procedures Performed Operation Date: 09/16/23 11:00 Actual Procedures p Right Total Knee Arthroplasty(Right) - Willi Mccain DO Ordered Studies 09/16/23 05:00 US - OR guided needle placemen Routine 09/16/23 12:03 US - OR guided needle placemen Routine Hospital Course (1) Status post right knee replacement: On September 16, 2023 Sawyer arrived at [facility] and underwent a right knee replacement without complication. He had a general anesthetic. Postoperatively he was started on aspirin for DVT prophylaxis and transferred to the general orthopedic floors. His hospital course was uneventful. On postop day #1, his vital signs were stable and his pain was well controlled. He was able to participate well with physical therapy doing ambulation and range of motion exercises. He was then discharged home. He will follow-up with orthopedics in 2 weeks. PG Care Time/CCT Total # of Minutes Spent Total Time Spent with Patient: Total time spent is greater than 50% in coordination of care (as documented) at patient's floor/unit and/or counseling patient: Discharge Plan Discharge Items Patient Disposition: Home - Home Health Services Reason For Visit: Right Knee Degenerative Joint Disease Discharge Diagnosis: Right knee replacement Activity: Per Instructions section Non-emergency contact: Surgeon Call non-emergency contact if: your wound has increased redness and your wound has increased drainage Follow-up/Referrals: Timbo Tejeda MD [Primary Care Provider] - Diet: Regular Addtl Attending Provider Instructions: Activity and Therapy Recommendations: * If you are using [facility] then therapy will be provided at your home until they feel you have accomplished all of your goals. * If you are using [facility] then Physical Therapy will be provided until they feel you are ready to start Outpatient Physical Therapy. * If you are not using home therapy then Outpatient Physical Therapy should start about 3-5 days from your day of surgery. Therapy will last about 6-10 weeks * It is important not to put a pillow under your knee when you are relaxing or sleeping. It is just as important to make sure you are getting your knee perfectly straight as it is to regain your knee bend. * You were shown a series of exercises in the hospital. Do these exercises three times each day including the exercises you were shown in physical therapy. * Get up and walk several times each day. For the first four weeks, try not to stand or walk for more than one hour at a time. If you do stand or walk for more than one hour, you will not hurt anything, but your leg will likely swell. * As you feel comfortable, you may change from the walker or crutches to a cane and then to independent walking. Medications: * Narcotic You will likely be sent home from the hospital with a prescription for the narcotic pain medication that worked best throughout your stay. * Aspirin Most patients will be required to take Aspirin 81mg twice a day for 6 weeks after surgery. This is obtained [id number] and a prescription is not necessary. * Cefadroxil -take the antibiotic twice a day for 10 days to help with infections. * Other medications may be prescribed for specific circumstances. If you have any questions, please call the office at . * Resume previous home medications unless otherwise instructed TEDs/Elastic Stockings: The white elastic stockings help limit swelling and prevent blood clots from forming in your legs.~ The more you wear them, the more they work. Wear them for six weeks. Dressing Care: The dressing can be changed after physical therapy on postop day #1. Daily dry dressing changes for a few days, especially if the incision is still draining some. If the incision is not draining then you may leave the rebel open to air. If there is a little bit of drainage or if the rebel are getting stuck on your clothing then cover the incision with a dry dressing. The rebel will be removed at your 2 week follow-up appointment. Showering: You may shower 5 days from the day of surgery as long as the incision is no longer draining. You may shower with the rebel exposed. Let soapy water run over the rebel and pat them dry. Do not scrub or soak the incision. Things To Watch For: * Drainage from the incision site that occurs more than one week after your surgery. * Increased redness at the incision site. * Fever above 102 degrees Fahrenheit. * Unusual chest pain or shortness of breath. * Call [facility] at with any of the above problems Follow-Up Visit: Follow-up with Dr. Mccain's PA (Willi Zarate) 2-3 weeks after your day of surger y. He will remove your rebel and answer any questions. If you have any additional questions or concerns, Dr Mccain is usually in the office at the same time and will be available An appointment was probably scheduled when you signed-up for surgery in the office. If you have any questions call Office Instructions: More detailed instructions as well as Frequently Asked Questions were provided in a folder by our office when you signed-up for surgery. Please review these instructions when you get home. If you have any further questions or concerns, please feel free to call the office at [phone] Pending Studies at Discharge: No Stand-Alone Forms: [facility] Medications and DC Order Prescriptions: New cefadroxil 500 mg capsule 500 mg PO BID 10 Days Qty: 20 0RF tramadol 50 mg tablet 50 mg PO Q6H PRN (Reason: pain) Qty: 30 0RF Continued multivitamin tablet 1 tab PO QAM (DME) lancets [OneTouch Delica Lancets] 33 gauge misc See Rx Instructions .ROUTE .MEDSUPPLY Qty: 100 3RF Rx Instructions: Test Blood Sugars Once Daily As Directed (DME) OneTouch Verio test strips Strip See Rx Instructions .ROUTE .MEDSUPPLY Qty: 100 3RF Rx Instructions: Test Blood Sugars Once Daily As Directed (DME) blood-glucose meter [OneTouch Verio Flex meter] [facility] See Rx Instructions .ROUTE .MEDSUPPLY Qty: 1 0RF Rx Instructions: Test blood sugars once a day as directed losartan 100 mg tablet 100 mg PO QAM Qty: 90 3RF Hold Instructions: temp decrease to 1/2 tablet daily postop lightheadedness insulin aspart U-100 [Novolog U-100 Insulin aspart] 100 unit/mL solution 100 unit continuous subcutaneous infusion DAILY 90 Days Qty: 90 3RF bupropion HCl 100 mg tablet 100 mg PO BID Qty: 60 5RF testosterone 20.25 mg/1.25 gram (1.62 %) gel in metered-dose pump 1 pump topical DAILY Qty: 75 3RF Rx Instructions: apply 1 pump amount over max area of ONE upper arm and shoulder gabapentin 300 mg capsule 600 mg PO TID Qty: 180 5RF labetalol 200 mg tablet 200 mg PO BID Qty: 180 3RF (DME) Dexcom G6 Sensor Device See Rx Instructions .ROUTE .MEDSUPPLY Qty: 3 12RF Rx Instructions: Replace every 10 days potassium gluconate 595 mg (99 mg) tablet 595 mg PO QAM meclizine 25 mg tablet 25 mg PO TID PRN (Reason: dizziness) Qty: 30 0RF omeprazole 20 mg capsule,delayed release(DR/EC) 20 mg PO QAM PRN (Reason: gerd) amlodipine 5 mg tablet 5 mg PO QAM Qty: 90 3RF empagliflozin [Jardiance] 25 mg tablet 25 mg PO QAM 0RF fluticasone propionate 50 mcg/actuation spray,suspension 2 sprays intranasal UD PRN (Reason: NASAL CONGESTION ) Qty: 1 magnesium gluconate 27 mg magnesium (500 mg) tablet 27 mg PO QAM duloxetine 60 mg capsule,delayed release(DR/EC) 60 mg PO QAM Qty: 90 3RF acetaminophen [Tylenol Extra Strength] 500 mg Tablet 500 mg PO Q6H PRN (Reason: Pain) lidocaine 5 % adhesive patch,medicated 1 patch TOP DAILY PRN (Reason: pain) Qty: 15 0RF Rx Instructions: leave on most painful area for 12 hrs cyanocobalamin (vitamin B-12) 1,000 mcg capsule 1,000 mcg PO DAILY Qty: 30 0RF rosuvastatin 20 mg tablet 20 mg PO QAM metformin 500 mg tablet extended release 24 hr 1,000 mg PO HS empagliflozin 25 mg Tablet 25 mg PO DAILY Changed aspirin 81 mg Tablet,Delayed Release (Dr/Ec) 81 mg PO BID 42 Days Qty: 84 0RF Patient Comments: carries with him, actually doesn't take Admission Data Admit Date/Time: 09/16/23 12:54 Attending Provider: Willi Mccain Admit Provider: Willi Mccain Primary Care Provider: Timbo Tejeda
== END 2023-09-17 12:00 | disposition home health service (06) ==
LOC: ASU 09:30 → 3N 09:30